=== PATIENT | female | born 1955 | race Caucasian/White ===

== ENCOUNTER 2016-10-19 09:30 | Emergency (ER) | payer BC ==
[~2016-10-19] VITALS: Ht 170.2 cm; Wt 156.9 kg
[~2016-10-19 09:30] MED LIST: ACCUPRIL40 MG PO; ANTACID GELATI1 EACH PO; B-121000 MC2 PO; BENADRYL25 MG PO; BLOOD GLUCOSE1 EACH MC; BYSTOLIC10 MG PO; BYSTOLIC20 MG PO; CALCIUM + D3 E1 EACH PO; CARDIZEM CD180 MG PO; CARDIZEM CD240 MG PO; CATAPRES0.1 MG PO; CHLORTHALIDONE25 MG PO; CINNAMON500 MG PO; CLINDAMYCIN HC300 MG PO; CLONIDINE HCL0.1 MG PO; CYCLOBENZAPRINE10 MG PO; DILAUDID2 MG PO; DILTIAZEM ER180 MG PO; DILTIAZEM ER360 MG PO; DOCUSATE SODIU100 MG PO; EFFER-K 10 MEQ10 MEQ PO; HUMALOG100 UNIT/1 SUB-Q; HUMALOG100 UNITS/; HYDROMORPHONE HC4 MG PO; IPRATROPIU0.2 MG/1 M INH; KEFLEX500 MG PO; KLOR-CON 1010 MEQ PO; LANTUS SOL100 UNIT/1 SUB-Q; LANTUS100 UNIT/1; LANTUS100 UNITS/ SUB-Q; LIPITOR20 MG PO; LISINOPRIL10 MG PO; MAG-OXIDE400 MG PO; MAGNESIUM OXID400 MG PO; MULTIVITAMINS1 EAC7 PO; MULTIVITAMINS1 EAC8 PO; NITROFURANTOIN100 M1 PO; NORVASC5 MG PO; OS-CAL 500+D C1 EAC1 PO; PERCOCET 10-321 EACH PO; POTASSIUM CHLO10 ME1 PO; POTASSIUM CHLO10 ME2 PO; POTASSIUM CHLO10 MEQ PO; PROMETHAZINE HC25 M1 PO; REGLAN10 MG PO; SALINE NASAL SP45 ML NAS; SILVADENE20 GM TP; SPIRONOLACTONE25 MG PO; STOOL SOFTENER1 EAC2 PO; STOOL SOFTENER100 MG PO; STOOL SOFTENER250 MG PO; THALITONE15 MG PO; TORSEMIDE10 MG PO; TORSEMIDE20 MG PO; TRAMADOL HCL50 MG PO; VITAMIN C1000 M1 PO; VITAMIN C250 MG PO; VITAMIN C500 M1 PO; VITAMIN C500 M4 PO; VITAMIN D1000 UNI1 PO; VITAMIN D2000 UNI1 PO; VITAMIN D5000 UNIT PO; XARELTO10 MG PO; XARELTO20 MG PO; XOPENEX CO1.25 MG/0. INH; ZYRTEC10 M3 PO; ZYRTEC10 MG PO
[2016-10-19] MEDS ORDERED: DIGOX125 MCG PO (09:43)
[2016-10-19] MEDS ORDERED: PERCOCET 5-3251 EACH PO (13:43)
[2016-10-19] MEDS ORDERED: ZOFRAN ODT4 MG PO (13:43)
--- NOTE | 2016-10-19 21:33 | EKG ---
[facility] [address] [facility] [place] [address] Signed Atrial fibrillation with premature ventricular or aberrantly conducted complexes Left anterior fascicular block Nonspecific ST and T wave abnormality Abnormal ECG No previous ECGs available Confirmed by ALPHONSE DUARTE MD ([id number]) on 10/19/2016 9:33:18 PM Electronically Signed By: ALPHONSE DUARTE MD 10/19/16 2133 PATIENT NAME: GISELRANDALL ALYSSA Electrocardiogram DATE OF : 55 PHYSICIAN: ALPHONSE DUARTE MD REPORT #: [id number] REPORT IS CONFIDENTIAL AND NOT TO BE RELEASED WITHOUT AUTHORIZATION
[2017-01-28] MEDS ORDERED: BYSTOLIC20 MG PO (22:45)
[2017-01-28] MEDS ORDERED: LEVEMIR FL100 UNIT/2 SUB-Q (22:46)
[2017-01-29] MEDS ORDERED: PERCOCET 5-3251 EACH PO (00:08)
[2017-01-29] MEDS ORDERED: LEVAQUIN500 MG PO (00:08)
== END 2016-10-19 13:58 | disposition home or self-care (01) ==
LOC: ED 09:30
DX: R07.2 Precordial pain (principal); I11.0 Hypertensive heart disease with heart failure; I50.9 Heart failure, unspecified; E11.9 Type 2 diabetes mellitus without complications; Z79.4 Long term (current) use of insulin; I48.91 Unspecified atrial fibrillation; Z79.01 Long term (current) use of anticoagulants; Z89.422 Acquired absence of other left toe(s); Z90.710 Acquired absence of both cervix and uterus; Z95.0 Presence of cardiac pacemaker; Z88.1 Allergy status to other antibiotic agents; Z90.49 Acquired absence of other specified parts of digestive tract; Z88.8 Allergy status to other drugs, medicaments and biological substances; Z88.2 Allergy status to sulfonamides; Z88.5 Allergy status to narcotic agent; Z79.899 Other long term (current) drug therapy
CPT/HCPCS: 71010; 71260; 80053; 80162; 84484; 85025; 93005; 93010; 96374; 96375; 96376; 99284; J2270; J2405; J2550; Q9967

== ENCOUNTER 2016-12-26 06:57 | Day surgery (SDC) | payer BC ==
[~2016-12-26] VITALS: Ht 170.2 cm; Wt 151.5 kg
[~2016-12-26 06:57] MED LIST changes: +DIGOX125 MCG PO; +PERCOCET 5-3251 EACH PO; +ZOFRAN ODT4 MG PO
[2017-01-28] MEDS ORDERED: BYSTOLIC20 MG PO (22:45)
[2017-01-28] MEDS ORDERED: LEVEMIR FL100 UNIT/2 SUB-Q (22:46)
[2017-01-29] MEDS ORDERED: LEVAQUIN500 MG PO (00:08)
[2017-01-29] MEDS ORDERED: PERCOCET 5-3251 EACH PO (00:08)
== END 2016-12-26 08:46 | disposition home or self-care (01) ==
LOC: DS 06:57 → OPS 06:57 → DS 08:00 → OPS 08:00
PROC: 08RK3JZ Replacement of Left Lens with Synthetic Substitute, Percutaneous Approach (ICD-10-PCS; principal; 2016-12-26)
DX: H25.812 Combined forms of age-related cataract, left eye (principal); I11.0 Hypertensive heart disease with heart failure; I50.9 Heart failure, unspecified; G47.30 Sleep apnea, unspecified; F17.210 Nicotine dependence, cigarettes, uncomplicated; I48.91 Unspecified atrial fibrillation; Z95.0 Presence of cardiac pacemaker; E11.9 Type 2 diabetes mellitus without complications; Z90.49 Acquired absence of other specified parts of digestive tract; Z90.710 Acquired absence of both cervix and uterus; Z98.890 Other specified postprocedural states; Z88.2 Allergy status to sulfonamides; Z88.8 Allergy status to other drugs, medicaments and biological substances; Z79.899 Other long term (current) drug therapy
CPT/HCPCS: 00140; 36415; 80053; J2250

== ENCOUNTER 2017-01-29 13:33 | Emergency (ER) | payer BC ==
[~2017-01-29] VITALS: Ht 170.2 cm; Wt 151.5 kg
[~2017-01-29 13:33] MED LIST changes: +LEVAQUIN500 MG PO; +LEVEMIR FL100 UNIT/2 SUB-Q
[2017-01-29] MEDS ORDERED: ONDANSETRON ODT8 MG PO (16:13)
== END 2017-01-29 16:40 | disposition home or self-care (01) ==
LOC: ED 13:33
DX: J40 Bronchitis, not specified as acute or chronic (principal); E86.0 Dehydration; I11.0 Hypertensive heart disease with heart failure; I50.9 Heart failure, unspecified; I48.91 Unspecified atrial fibrillation; Z90.710 Acquired absence of both cervix and uterus; Z95.0 Presence of cardiac pacemaker; Z88.8 Allergy status to other drugs, medicaments and biological substances; Z88.7 Allergy status to serum and vaccine; Z88.1 Allergy status to other antibiotic agents; Z91.048 Other nonmedicinal substance allergy status; Z79.899 Other long term (current) drug therapy; Z79.01 Long term (current) use of anticoagulants; Z79.4 Long term (current) use of insulin
CPT/HCPCS: 71010; 80048; 81001; 83605; 85025; 87077; 87088; 87186; 96361; 96365; 96375; 96376; 99283; J1170; J1956; J2270; J2405; J7030

== ENCOUNTER 2017-02-16 15:38 | Emergency (ER) | payer BC ==
[~2017-02-16] VITALS: Ht 170.2 cm; Wt 151.5 kg
[~2017-02-16 15:38] MED LIST changes: +ONDANSETRON ODT8 MG PO
[2017-02-16] MEDS ORDERED: MULTIVITAMINS1 EAC7 PO (15:57)
[2017-02-16] MEDS ORDERED: PERCOCET 5-3251 EACH PO (17:28)
[2017-02-16] MEDS ORDERED: ZOFRAN ODT4 MG PO (17:28)
--- NOTE | 2017-02-18 00:36 | EKG ---
[facility] [address] [facility] [place] [address] Signed Atrial fibrillation with occasional ventricular-paced complexes Right superior axis deviation Pulmonary disease pattern ST \T\ T wave abnormality, consider anterolateral ischemia Abnormal ECG When compared with ECG of 28-JAN-2017 22:22, Electronic ventricular pacemaker has replaced Atrial fibrillation Vent. rate has decreased BY 47 BPM Confirmed by ALPHONSE DUARTE MD ([id number]) on 02/18/2017 12:36:33 AM Electronically Signed By: ALPHONSE DUARTE MD 02/18/17 0036 PATIENT NAME: RANDALL BATRES Electrocardiogram DATE OF : 55 PHYSICIAN: ALPHONSE DUARTE MD REPORT #: [id number] REPORT IS CONFIDENTIAL AND NOT TO BE RELEASED WITHOUT AUTHORIZATION
== END 2017-02-16 18:00 | disposition home or self-care (01) ==
LOC: ED 15:38
DX: K85.90 Acute pancreatitis without necrosis or infection, unspecified (principal); E11.9 Type 2 diabetes mellitus without complications; I11.0 Hypertensive heart disease with heart failure; I50.9 Heart failure, unspecified; I48.91 Unspecified atrial fibrillation; F17.200 Nicotine dependence, unspecified, uncomplicated; Z87.01 Personal history of pneumonia (recurrent); Z90.710 Acquired absence of both cervix and uterus; Z95.0 Presence of cardiac pacemaker; Z90.49 Acquired absence of other specified parts of digestive tract; Z88.8 Allergy status to other drugs, medicaments and biological substances; Z88.1 Allergy status to other antibiotic agents; Z88.2 Allergy status to sulfonamides; Z88.5 Allergy status to narcotic agent; Z91.048 Other nonmedicinal substance allergy status; Z79.899 Other long term (current) drug therapy; Z79.4 Long term (current) use of insulin; Z79.2 Long term (current) use of antibiotics
CPT/HCPCS: 71020; 80053; 83690; 83880; 84484; 85025; 93005; 93010; 96374; 96375; 99284; J1170; J2405; J3010

== ENCOUNTER 2018-03-21 01:53 | Emergency (ER) | payer BC ==
[~2018-03-21] VITALS: Ht 170.2 cm; Wt 137.4 kg
--- NOTE | 2018-03-21 22:18 | EKG ---
[facility] [address] [facility] [place] [address] Signed Atrial fibrillation with rapid ventricular response Left anterior fascicular block Minimal voltage criteria for LVH, may be normal variant Marked ST abnormality, possible lateral subendocardial injury Abnormal ECG When compared with ECG of 16-FEB-2017 15:43, Atrial fibrillation has replaced Electronic ventricular pacemaker Vent. rate has increased BY 75 BPM Confirmed by VARSHA LOPEZ DO ([id number]) on 03/21/2018 10:17:57 PM Electronically Signed By: VARSHA LOPEZ DO 03/21/18 2218 PATIENT NAME: RANDALL BATRES Electrocardiogram DATE OF : 55 PHYSICIAN: VARSHA LOPEZ DO REPORT #: [id number] REPORT IS CONFIDENTIAL AND NOT TO BE RELEASED WITHOUT AUTHORIZATION
== END 2018-03-21 06:32 | disposition home or self-care (01) ==
LOC: ED 01:53
DX: I48.91 Unspecified atrial fibrillation (principal); F41.9 Anxiety disorder, unspecified; E11.9 Type 2 diabetes mellitus without complications; I11.0 Hypertensive heart disease with heart failure; I50.9 Heart failure, unspecified; Z87.01 Personal history of pneumonia (recurrent); F17.200 Nicotine dependence, unspecified, uncomplicated; Z95.0 Presence of cardiac pacemaker; Z89.422 Acquired absence of other left toe(s); Z90.710 Acquired absence of both cervix and uterus; Z90.49 Acquired absence of other specified parts of digestive tract; Z88.5 Allergy status to narcotic agent; Z88.1 Allergy status to other antibiotic agents; Z88.2 Allergy status to sulfonamides; Z88.8 Allergy status to other drugs, medicaments and biological substances; Z91.09 Other allergy status, other than to drugs and biological substances; Z91.048 Other nonmedicinal substance allergy status; Z79.899 Other long term (current) drug therapy; Z79.4 Long term (current) use of insulin
CPT/HCPCS: 71045; 80053; 80162; 84484; 85025; 85610; 85730; 93005; 93010; 96374; 96375; 96376; 99285-25; J2060; J2270; J2405

== ENCOUNTER 2019-01-10 22:02 | Emergency (ER) | payer BC ==
[~2019-01-10] VITALS: Ht 170.2 cm; Wt 137.4 kg
--- OUTSIDE RECORDS SUMMARY | ~2019-01-10 | XMS | Encounter Summary ---
Demographics + + + | Address | [address] | | | [place] [address] | + + + | Home Phone | | + + + | Preferred Language | Unknown | + + + | Marital Status | | + + + | Yazidi Affiliation | 1013 | + + + | Race | Unknown | + + + | Ethnic Group | Unknown | + + + Author + + + | Author | [facility] | | | and [place] | + + + | Organization | [facility] | | | and [place] | + + + | Address | Unknown | + + + | Phone | Unavailable | + + + Support + + +---------+ + | Name | Relationship | Address | Phone | + + +---------+ + | Juanjose Singletary | ECON | Unknown | | | "[place]" | | | | + + +---------+ + | Aarti Arita | ECON | Unknown | | + + +---------+ + Care Team Providers + +------+ + | Care Canvas Cutter Machine Name | Role | Phone | + +------+ + | Kris Driver | PCP | | | MD | | | + +------+ + Encounter Details +--------+ + + + + | Date | Type | Department | Care Team | Description | +--------+ + + + + | 10/16/ | Orders Only | [facility] | Katie Bee | | | 2019 | | CARDIOLOGY MAXIMO | [address] [address] | | | | | [address] | [address] | | | | | [address] | [place] [address] | | | | | [place] | [phone] | | | | | [address] | | | | | | [phone] | | | +--------+ + + + + Social History + +-------+ +--------+------+ | Tobacco Use | Types | Packs/Day | Years | Date | | | | | Used | | + +-------+ +--------+------+ | Current Every Day | | 0.5 | | | | Smoker | | | | | + +-------+ +--------+------+ + + | Comments: set quit date for Novemver | + + + + + | Sex Assigned at | Date Recorded | | | | + + + | Not on file | | + + + + + + + | Job Start Date | Occupation | Industry | + + + + | Not on file | Not on file | Not on file | + + + + + + + + | Travel History | Travel Start | Travel End | + + + + + + | No recent travel history available. | + + documented as of this encounter Plan of Treatment +--------+ + + + + | Date | Type | Specialty | Care Team | Description | +--------+ + + + + | 01/12/ | Office | Cardiology | RohitKatie | | | 2018 | Visit | | [place] | | | | | | [address] | | | | | | [place] [address] | | | | | | [phone] | | | | | | | | +--------+ + + + + | 01/28/ | Office | Cardiology | Dale Lopez, | | | 2018 | Visit | | MD [address] | | | | | | [place] | | | | | | [address] | | | | | | | | +--------+ + + + + | 03/11/ | Procedure | Cardiology | | | | 2019 | visit | | | | +--------+ + + + + documented as of this encounter Visit Diagnoses Not on filedocumented in this encounter
--- OUTSIDE RECORDS SUMMARY | ~2019-01-10 | XMS | Clinical Summary ---
Demographics + + + | Address | [address] | | | [place] [address] | + + + | Home Phone | | + + + | Preferred Language | Unknown | + + + | Marital Status | | + + + | Methodist Affiliation | 1013 | + + + | Race | Unknown | + + + | Ethnic Group | Unknown | + + + Author + + + | Author | [email or web address] (Historical as of | | | 11-01-18) | + + + | Organization | [facility] (Historical as of | | | 11-01-18) | + + + | Address | Unknown | + + + | Phone | Unavailable | + + + Support + + +---------+ + | Name | Relationship | Address | Phone | + + +---------+ + | Juanjose Batres | ECON | Unknown | | | "[place]" | | | | + + +---------+ + | Aarti Arita | ECON | Unknown | | + + +---------+ + | Varsha Molina | ECON | Unknown | | + + +---------+ + Care Team Providers + +------+ + | Care Caustics Loader Name | Role | Phone | + +------+ + | Kris Driver MD | PP | | + +------+ + Allergies + + + + + + | Active Allergy | Reactions | Severity | Noted | Comments | | | | | Date | | + + + + + + | Adhesive Tape | Other (See Comments) | Medium | 01/24/20 | Blisters | | | | | 16 | | + + + + + + | Wmgfchcz-Awmjsnmex-U | Other (See Comments) | Medium | 07/10/19 | Unknown | | c | | | 12 | | + + + + + + | Sulfamethoxazole-Tri | Rash | Medium | 07/10/19 | | | methoprim | | | 12 | | + + + + + + | Metoprolol Succinate | Other (See Comments) | Medium | 07/10/19 | Fluid retention | | | | | 12 | | + + + + + + | Hydrocodone-Acetamin | Rash | Medium | 07/10/19 | | | ophen | | | 12 | | + + + + + + Current Medications + + +--------+---------+------+------+-------+ | Prescription | Sig. | Disp. | Refills | Star | End | Statu | | | | | | t | Date | s | | | | | | Date | | | + + +--------+---------+------+------+-------+ | docusate sodium | Take 100 mg by mouth | | | | | Activ | | (COLACE) 100 MG | as needed. | | | | | e | | capsule | | | | | | | + + +--------+---------+------+------+-------+ | cetirizine | Take 10 mg by mouth | | | | | Activ | | (ZYRTEC) 10 MG | daily. | | | | | e | | chewable tablet | | | | | | | + + +--------+---------+------+------+-------+ | atorvastatin | Take 20 mg by mouth | | | | | Activ | | (LIPITOR) 20 MG | daily. | | | | | e | | tablet | | | | | | | + + +--------+---------+------+------+-------+ | Multiple | Take by mouth 2 | | | | | Activ | | Minerals-Vitamins | (two) times daily. | | | | | e | | (QSPCEXR-QRHXEHDGI-U | | | | | | | | INC-D3 PO) | | | | | | | + + +--------+---------+------+------+-------+ | Cholecalciferol | Take 1,000 Units by | | | | | Activ | | 1000 UNITS capsule | mouth 2 (two) times | | | | | e | | | daily. | | | | | | + + +--------+---------+------+------+-------+ | diltiazem (TIAZAC) | Take 360 mg by mouth | | | | | Activ | | 360 MG 24 hr | daily. | | | | | e | | capsule | | | | | | | + + +--------+---------+------+------+-------+ | MULTIPLE VITAMIN | Take by mouth | | | | | Activ | | PO | daily. | | | | | e | + + +--------+---------+------+------+-------+ | cyanocobalamin | Take 1,000 mcg by | | | | | Activ | | (VITAMIN B-12) 1000 | mouth 2 (two) times | | | | | e | | MCG tablet | daily. | | | | | | + + +--------+---------+------+------+-------+ | magnesium oxide | Take 400 mg by mouth | | | | | Activ | | (MAG-OX) 400 MG | daily. | | | | | e | | tablet | | | | | | | + + +--------+---------+------+------+-------+ | rivaroxaban | Take 20 mg by mouth | | | | | Activ | | (XARELTO) 20 MG | daily with dinner. | | | | | e | | tablet | | | | | | | + + +--------+---------+------+------+-------+ | Ascorbic Acid 500 | Take 500 mg by mouth | | | | | Activ | | MG CAPS | daily. | | | | | e | + + +--------+---------+------+------+-------+ | insulin lispro, | Inject 10 Units into | | | | | Activ | | human, (HUMALOG) 100 | the skin 3 (three) | | | | | e | | UNIT/ML injection | times daily before | | | | | | | | meals. TID sliding | | | | | | | | scale | | | | | | + + +--------+---------+------+------+-------+ | torsemide | Take 2 tablets by | 120 | 1 | 08/1 | | Activ | | (DEMADEX) 20 MG | mouth daily. | tablet | | 1/20 | | e | | tablet | | | | 16 | | | + + +--------+---------+------+------+-------+ | potassium chloride | Take 20 mEq by mouth | | | | | Activ | | (K-DUR) 10 MEQ | 2 (two) times daily | | | | | e | | tablet | with meals. | | | | | | + + +--------+---------+------+------+-------+ | Insulin Detemir | Inject 95 Units into | | | | | Activ | | (LEVEMIR FLEXTOUCH | the skin daily. | | | | | e | | SC) | | | | | | | + + +--------+---------+------+------+-------+ | digoxin (LANOXIN) | Take 1 tablet by | 90 | 1 | 02/2 | 02/2 | Activ | | 0.125 MG tablet | mouth daily. | tablet | | 10/04 | 10/04 | e | | | | | | 19 | 20 | | + + +--------+---------+------+------+-------+ | carvedilol (COREG | Take 20 mg by mouth | | | | | Activ | | CR) 20 MG 24 hr | 2 (two) times daily. | | | | | e | | capsule | | | | | | | + + +--------+---------+------+------+-------+ | lisinopril | Take 1 tablet by | 30 | 0 | 03/0 | 03/0 | Activ | | (ZESTRIL) 40 MG | mouth daily. | tablet | | /20 | 20 | e | | tablet | | | | 19 | 20 | | + + +--------+---------+------+------+-------+ | aspirin 81 MG EC | Take 1 tablet by | 90 | 3 | 09/15 | 09/15 | Activ | | tablet | mouth daily. | tablet | | /20 | 10/04 | e | | | | | | 19 | 20 | | + + +--------+---------+------+------+-------+ | clopidogrel | Take 1 tablet by | 90 | 3 | 09/15 | 09/15 | Activ | | (PLAVIX) 75 MG | mouth daily. | tablet | | / | 10/04 | e | | tablet | | | | 19 | 20 | | + + +--------+---------+------+------+-------+ | hydrALAZINE | Take 1 tablet by | 30 | 11 | 08/0 | 09/17 | Activ | | (APRESOLINE) 25 MG | mouth 2 (two) times | tablet | | 04/06 | 04/06 | e | | tablet | daily. | | | 19 | 20 | | + + +--------+---------+------+------+-------+ Active Problems + + + | Problem | Noted Date | + + + | Pacemaker | 10/16/2018 | + + + | Screening for deficiency anemia | 10/16/2018 | + + + | Chronic anticoagulation | 10/16/2018 | + + + | Encounter for monitoring digoxin therapy | 10/16/2018 | + + + | S/P primary angioplasty with coronary stent | 10/06/2018 | + + + + + | Overview: angiogram/PCI: 10/02/2018: ([facility]) : Three vessel | | coronary artery disease with severe disease to the proximal LAD, | | and stable disease to the RCA and left circumflex. Angioplasty | | of proximal LAD with KARTIK Synergy 2.5 x 32 mm. Angioplasty for the | | mid RCA with KARTIK Resolute Wiliam 2.0. | + + + + + | Coronary artery disease of [place] artery of [place] heart with | 10/06/2018 | | stable angina pectoris (HCC) | | + + + | Obstructive sleep apnea | 08/28/2017 | + + + | CHF (congestive heart failure), NYHA class III | 09/22/2015 | + + + + + | Last Assessment & Plan: Non-ischemic CM, CHF, LVEDd 65mm, | | LVEF 45-50%. 60yo WF, with history of nonischemic | | cardiomyopathy (low-grade CAD), congestive heart failure, chronic | | atrial fibrillation. She is having difficulty with edema and | | shortness of breath, was quite aggressive with the diuretics, | | this lowered her renal function. We've had to back off on the | | torsemide, renal function is improved. Although her weight is | | going up, she has not had any significant increase in her edema. | | Lately, she's had episodes of lightheadedness, near-syncope. | | The 14-day cardiac event monitor reveals both tachycardia and | | bradycardia events, pauses up to 6.4 seconds in duration, and | | episodes of paroxysmal atrial fibrillation with heart rates up to | | 148 bpm, symptoms correlating with the tachycardic events. So | | far, she's not had a complete syncopal episode. She probably | | needs more aggressive medical therapy for her atrial | | fibrillation, however with her pauses, she will need a pacemaker. | | Pacemaker implantation procedure described to the patient, | | risks and benefits explained. We'll have her see Dr. Lopez in | | consultation for pacemaker implantation.Hx CABG: no Hx | | PCI/stent: noHx Pacemaker/ICD: noLast Cath, 07/10/2011: left main | | OK, 30% mid-LAD, LCx luminal irreg, 40% prox-OM1, 75-80% | | ydf-uac-fhlcvcus RCA. LVEF 55%.Last Echo, 08[facility]/2015 ([facility] TDS, A fib, LVEDd 65mm, LVEF 45-50%, severe LAE, | | moderate LILI, trace MR, trace TR, mild PI, Acecnding Aorta 40mm, | | est systolic PAP 39-44mmHg.Last Stress Test, 05/15/2011 ([facility]): | | 2-day Lexiscan MPI, mild gen-apical ischemia, LVEF 56%.14-day | | Cardiac Event Monitor, 12/06/2015: sinus rhythm, 46-148, 21% A fib | | burden, 50-148bpm, 11 pauses, longest pause 6.4sec, symptoms of | | dizziness correlate with A fib at high heart rates.ECG, 08/17/2015 | | ([facility]): A fib, 115bpm, LAFB, PRWP, non-spec ST-T | | changes.ECG, 09/15/2015 (Dr Smiley): sinus rhythm, Atrial | | bigeminy, 75bpm, LAD, PRWP, non-spec ST-T changes. | + + + + + | Persistent atrial fibrillation (HCC) | 09/22/2015 | + + + + + | Overview: Echo in August 2015: Last Assessment & Plan: P A | | fib, CHADS2 Score 3 (CHF, HTN, DM). Anti-coagulated with | | Xarelto. Denies any new visual disturbances, dysarthria, | | dysphasia, lateralizing signs or symptoms. No significant | | bleeding or bruising.14-day Cardiac Event Monitor, 12/06/2015: | | sinus rhythm, 46-148, 21% A fib burden, 50-148bpm, 11 pauses, | | longest pause 6.4sec, symptoms of dizziness correlate with A fib | | at high heart rates. | + + + + + | HTN (hypertension) | 09/22/2015 | + + + + + | Last Assessment & Plan: Hypertension, controlled, continue | | current meds at current doses (diltiazem, lisinopril, nebivolol, | | torsemide).Lab, 12/03/2015: K: 3.7, BUN/Cr: 13/0.9 (GFR 67), glu: | | 105 | + + + + + | Mixed dyslipidemia | 09/22/2015 | + + + + + | Last Assessment & Plan: Hyperlipidemia, continue current meds | | at current doses (atorvastatin). | + + + + + | Type 2 diabetes mellitus without complication, with long-term | 09/22/2015 | | current use of insulin (HCC) | | + + + + + | Last Assessment & Plan: DM2, managed by PCP. | + + Encounters +--------+ + + + + | Date | Type | Specialty | Care Team | Description | +--------+ + + + + | 10/20/ | Documentati | | Jeannine Reed MA | Other (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 | | | | | | diastolic congestive | | | | | | heart failure, NYHA | | | | | | class 3 ([facility]); | | | | | | Pacemaker; Mixed | | | | | | dyslipidemia; | | | | | | Essential | | | | | | hypertension; | | | | | | Persistent atrial | | | | | | fibrillation ([facility]); | | | | | | S/P primary | | | | | | angioplasty with | | | | | | coronary stent; | | | | | | Obstructive sleep | | | | | | apnea | +--------+ + + + + | 10/14/ | Documentati | | Jeannine Reed, REX | Elisabeth ([facility] | | 2018 | on Only | | | Cardiac Rehab | | | | | | Initial Consult | | | | | | 10/13/18) | +--------+ + + + + from Last 3 Months Family History + + +------+ + | Medical History | Relation | Name | Comments | + + +------+ + | Hypertension | Father | | | + + +------+ + | Diabetes type II | Mother | | | + + +------+ + | Heart disease | Mother | | | + + +------+ + | High cholesterol | Mother | | | + + +------+ + | Hypertension | Mother | | | + + +------+ + | Stroke | Mother | | | + + +------+ + + +------+ + + | Relation | Name | Status | Comments | + +------+ + + | Father | | | lung cancer,HTN | | | | (Age | | | | | 76) | | + +------+ + + | Mother | | | TIA,triple bypass, HTN, Hyperlipidemia | + +------+ + + Social History + + + +--------+ + | Tobacco Use | Types | Packs/Day | Years | Date | | | | | Used | | + + + +--------+ + | Current Every Day | Cigarettes | 0.5 | 36 | Started: 03/18/1971 | | Smoker | | | | | + + + +--------+ + + +---+---+---+ | Smokeless Tobacco: | | | | | Never Used | | | | + +---+---+---+ + + | Tobacco Cessation: Ready to Quit: No; Counseling Given: Yes | | Comments: set quit date for Novemver | + + + + +---------+ + | Alcohol Use | Drinks/We | oz/Week | Comments | | | ek | | | + + +---------+ + | No | 0 | 0.0 | | | | Standard | | | | | drinks or | | | | | | | | | | equivalen | | | | | t | | | + + +---------+ + + + + | Sex Assigned at | Date Recorded | | | | + + + | Not on file | | + + + Last Filed Vital Signs + + + + | Vital Sign | Reading | Time Taken | + + + + | Blood Pressure | 148/72 | 10/16/2018 10:01 AM PDT | + + + + | Pulse | 67 | 10/16/2018 10:01 AM PDT | + + + + | Temperature | 36.6 C (97.9 F) | 10/02/2018 5:50 PM PDT | + + + + | Respiratory Rate | 18 | 10/16/2018 10:01 AM PDT | + + + + | Oxygen Saturation | 97% | 10/16/2018 10:01 AM PDT | + + + + | Inhaled Oxygen | - | - | | Concentration | | | + + + + | Weight | 142.5 kg (314 lb 3.2 | 10/16/2018 10:01 AM PDT | | | oz) | | + + + + | Height | 171.5 cm (5' 7.5") | 10/16/2018 10:01 AM PDT | + + + + | Body Mass Index | 48.48 | 10/16/2018 10:01 AM PDT | + + + + Plan of Treatment +--------+ + + + + | Date | Type | Specialty | Care Team | Description | +--------+ + + + + | 01/28/ | Office | | Dale Lopez, | | | 2018 | Visit | | MD Colby Knapp | | | | | | Dr [address], | | | | | | [place] [phone] | | | | | | [phone] | | | | | | | | +--------+ + + + + | 03/11/ | Documentati | | | | | 2018 | on Only | | | | +--------+ + + + + + + + + + | Health Maintenance | Due Date | Last Done | Comments | + + + + + | Diabetic Eye Exam | | | | | | 5 | | | + + + + + | Diabetic Foot Exam | | | | | | 5 | | | + + + + + | Hemoglobin A1c | | | | | | 5 | | | + + + + + | Microalbumin | | | | | Screening | 5 | | | + + + + + | Vaccine: | | | | | Dtap/Tdap/Td (1 - | 4 | | | | Tdap) | | | | + + + + + | Vaccine: | | | | | Pneumococcal 19-64 | 4 | | | | (PPSV23 only) Medium | | | | | Risk (1 of 1 - | | | | | PPSV23) | | | | + + + + + | Cervical Cancer | | | | | Screening (Pap) | 5 | | | + + + + + | Breast Cancer | | | | | Screening | 5 | | | | (Mammogram) | | | | + + + + + | Colon Cancer | | | | | Screening | 5 | | | | (Colonoscopy) | | | | + + + + + | Vaccine: Zoster (1 | | | | | of 2) | 5 | | | + + + + + | Vaccine: Influenza | | | | | (#1) | 9 | | | + + + + + Implants + +--------+--------+ +--------+--------+--------+ | Implanted | Type | Area | Manufacture | Device | Expira | Model | | | | | r | | tion | / | | | | | | Identi | Date | Serial | | | | | | fier | | / Lot | + +--------+--------+ +--------+--------+--------+ | Capsurefix | Cardia | Heart | | | | [id number] | | Novus-01/13/2016Implanted: | c | | | | | 8CM | | 01/13/2016 by John, | Rhythm | | | | | /[id number] | | MD [place] (Quantity not on | | | | | | [id number] | | file) | Manage | | | | | / | | | ment | | | | | | + +--------+--------+ +--------+--------+--------+ | Capsurefix | Cardia | Heart | | | | [id number] | | Novus-01/13/2016Implanted: | c | | | | | 2CM | | 01/13/2016 by John, | Rhythm | | | | | /[id number] | | MD Dale (Quantity not on | | | | | | [id number] | | file) | Manage | | | | | / | | | ment | | | | | | + +--------+--------+ +--------+--------+--------+ | Advisa Dr Mri | Pacema | Left: | | | | [id number] | | Surescan-01/13/2016Implanted: | ker | Chest | | | | | | 01/13/2016 by John, | | Wall | | | | /[id number] | | MD Dale (Quantity not on | | | | | | [id number] | | file) | | | | | | / | + +--------+--------+ +--------+--------+--------+ | Synergy-10/02/2018Implanted: | Stent | Shetty | [place] | | 06/11/ | / | | Qty: 1 on 10/02/2018 by | | ry | SCIENTIFIC | | 2020 | /[id number] | | Lane Zarco MD | | | LAURA - BSCI | | | 591 | + +--------+--------+ +--------+--------+--------+ | Resolute | Stent | Shetty | MEDTRONIC - | | 12/29/ | / | | Oynx-10/02/2018Implanted: Qty: | | ry | MEDT | | 2019 | /[id number] | | 1 on 10/02/2018 by Haroldo, | | | | | | [id number] | | MD [address] | | | | | | | + +--------+--------+ +--------+--------+--------+ Procedures + +--------+ + + + | Procedure Name | Priori | Date/Time | Associated Diagnosis | Comments | | | ty | | | | + +--------+ + + + | EKG STANDARD 12 LEAD | Routin | 10/16/2018 | Coronary artery | Results for this | | | e | 10:07 AM | disease [place] | procedure are in the | | | | PDT | artery of [place] | results section. | | | | | heart with stable | | | | | | angina pectoris | | | | | | ([facility]) Chronic | | | | | | combined systolic | | | | | | and diastolic | | | | | | congestive heart | | | | | | failure, NYHA class | | | | | | 3 ([facility]) Pacemaker | | | | | | Mixed dyslipidemia | | | | | | Essential | | | | | | hypertension | | | | | | Persistent atrial | | | | | | fibrillation ([facility]) | | | | | | S/P primary | | | | | | angioplasty with | | | | | | coronary stent | | | | | | Obstructive sleep | | | | | | apnea | | + +--------+ + + + from Last 3 Months Results EKG STANDARD 12 LEAD (10/16/2018 10:07 AM) + + + + + | Component | Value | Ref Range | Performed At | + + + + + | Ventricular Rate | 67 | BPM | [facility] | + + + + + | Atrial Rate | 77 | BPM | [facility] | + + + + + | QRS Duration | 98 | ms | [facility] | + + + + + | Q-T Interval | 390 | ms | [facility] | + + + + + | QTC Calculation | 412 | ms | [facility] | | ([place]) | | | | + + + + + | Calculated R [place] | -53 | degrees | [facility] | + + + + + | Calculated T [place] | 109 | degrees | [facility] | + + + + + | Diagnosis | Please refer to | | [facility] | | | Providers office visit | | | | | note for Providers | | | | | Interpretation.Confirmed | | | | | by [facility] Read Only, | | | | | [facility] [employer] ([id number]), | | | | | film and video editor Carlos A Zafar | | | | | ([id number]) on 10/16/2018 | | | | | 10:40:46 AM | | | + + + + + + + + + + | Performing | Address | City/State/Zipcode | Phone Number | | Organization | | | | + + + + + | [facility] | [address] | [place] [address] | | + + + + + from Last 3 Months Insurance +---------+--------+ +------+-------+ + | Payer | Benefi | Subscriber | Type | Phone | Address | | | t Plan | ID | | | | | | / | | | | | | | Group | | | | | +---------+--------+ +------+-------+ + | PREMERA | PREMER | [id number] | | | [address] [address] | | | A BLUE | 8 | | | [place], [place] | | | CARD | | | | [phone] | +---------+--------+ +------+-------+ + + +--------+ +--------+ + + | Guarantor Name | Accoun | Relation to | Date | Phone | Billing Address | | | t Type | Patient | of | | | | | | | | | | + +--------+ +--------+ + + | RANDALL BATRES | Person | Self [birth year] Home: | [address] | | [place] | al/Fam | | [phone] [place] | | | dinesh | | | [phone] | [phone] | + +--------+ +--------+ + +
--- OUTSIDE RECORDS SUMMARY | ~2019-01-10 | XMS | Encounter Summary ---
Demographics + + + | Address | [address] | | | [place] [address] | + + + | Home Phone | | + + + | Preferred Language | Unknown | + + + | Marital Status | | + + + | Judaism Affiliation | 1013 | + + + | Race | Unknown | + + + | Ethnic Group | Unknown | + + + Author + + + | Author | [facility] | | | and [place] | + + + | Organization | [facility] | | | and [...] | | + + +---------+ + | aArti Arita | ECON | Unknown | | + + +---------+ + Care Team Providers + +------+ + | Care Coding Manager Name | Role | Phone | + +------+ + | Kris Driver | PCP | | | MD | | | + +------+ + Reason for Visit + + + | Reason | Comments | + + + | Medication Refill | | + + + Encounter Details +--------+--------+ + + + | Date | Type | Department | Care Team | Description | +--------+--------+ + + + | 12/15/ | Refill | [facility] | Dale Lopez, | Medication Refill | | 2019 | | CARDIOLOGY [place] | MD [address] | | | | | [address] | [place], [place] | | | | | [place], [place] | [address] | | | | | [address] | | | | | | [phone] | | | +--------+--------+ + + + Social History + +-------+ +--------+------+ | Tobacco Use | Types | Packs/Day | Years | Date | | | | | Used | | + +-------+ +--------+------+ | Current Every Day | | 0.5 | | | | Smoker | | | | | + +-------+ +--------+------+ + +---+---+---+ | Smokeless Tobacco: | | | | | Never Used | | | | + +---+---+---+ + + | Comments: set quit date for Novemver | + + + + +---------+ + | Alcohol Use | Drinks/We | oz/Week | Comments | | | ek | | | + + +---------+ + | Never | | | | + + +---------+ + + + + + | Alcohol Habits | Answer | Date Recorded | + + + + | How often do you have a drink containing | Never | 11/27/2018 | | alcohol? | | | + + + + | How many drinks containing alcohol do you | Not asked | | | have on a typical day when you are | | | | drinking? | | | + + + + | How often do you have six or more drinks on | Not asked | | | one occasion? | | | + + + + + + + | Sex [...] | 01/12/ | Office | Cardiology | Katie Bee | | | 2019 | Visit | | [address] | | | | | | [address] | | | | | | [place] [address] | | | | | | [phone] | | | | | | | | +--------+ + + + + | 01/28/ | Office | Cardiology | Dale Lopez, | | | 2018 | Visit | | [address] | | | | | | [place] | | | | | | [address] | | | | | | | | +--------+ + + + + | 03/11/ | Procedure | Cardiology | | | | 2018 | visit | | | | +--------+ + + + + documented as of this encounter Visit Diagnoses Not on filedocumented in this encounter
--- OUTSIDE RECORDS SUMMARY | ~2019-01-10 | XMS | Encounter Summary ---
Demographics + + + | Address | [address] | | | [place] [address] | + + + | Home Phone | | + + + | Preferred Language | Unknown | + + + | Marital Status | | + + + | Jain Affiliation | 1013 | + + + | Race | Unknown | + + + | Ethnic Group | Unknown | + + + Author + + + | Author | [facility] | | | and [place] | + + + | Organization | [facility] | | | [...] Team Providers + +------+ + | Care Delivery And Mail Sorter Name | Role | Phone | + +------+ + | Kris Driver | PCP | | | MD | | | + +------+ + Encounter Details +--------+ + + + + | Date | Type | Department | Care Team | Description | +--------+ + + + + | 10/31/ | Orders Only | [facility] | Katie Bee | Mixed | | 2019 | | CARDIOLOGY [place] | [address] | hyperlipidemia; Type | | | | [address] | [address] | 2 diabetes mellitus | | | | [address] | [place] [address] | without | | | | [place], [place] | [phone] | complications (HCC); | | | | [address] | | Presence of | | | | [phone] | | coronary angioplasty | | | | | | implant and graft; | | | | | | Encounter for | | | | | | screening for | | | | | | diseases of the | | | | | | blood and | | | | | | blood-forming organs | | | | | | and certain | | | | | | disorders involving | | | | | | the immune | | | | | | mechanism; | | | | | | Persistent atrial | | | | | | fibrillation (HCC); | | | | | | Encounter for | | | | | | therapeutic drug | | | | | | level monitoring | +--------+ + + + + Social [...] [address] | | | | | | [address] | | | | | | [place] [address] | | | | | | [phone] | | | | | | | | +--------+ + + + + | 01/28/ | Office | Cardiology | Dale Lopez, | | | 2018 | Visit | | MD [address] | | | | | | [place] | | | | | | [address] | | | | | | | | +--------+ + + + + | 03/11/ | Procedure | Cardiology | | | | 2018 | visit | | | | +--------+ + + + + + +--------+ + + | Name | Priori | Associated Diagnoses | Order Schedule | | | ty | | | + +--------+ + + | Lipid Panel | Routin | Mixed | Expected: | | | e | hyperlipidemia | 10/16/2018, Expires: | | | | | 10/17/2019 | + +--------+ + + documented as of this encounter Visit Diagnoses + + | Diagnosis | + + | Mixed hyperlipidemia | + + | Type 2 diabetes mellitus without complications (HCC) Type II or unspecified type | | diabetes mellitus without mention of complication, not stated as uncontrolled | + + | Presence of coronary angioplasty implant and graft Postsurgical percutaneous | | transluminal coronary angioplasty status | + + | Encounter for screening for diseases of the blood and blood-forming organs and certain | | disorders involving the immune mechanism | + + | Persistent atrial fibrillation Atrial fibrillation | + + | Encounter for therapeutic drug level monitoring Encounter for therapeutic drug | | monitoring | + + documented in this encounter
--- OUTSIDE RECORDS SUMMARY | ~2019-01-10 | XMS | Encounter Summary ---
Demographics + + + | Address | [address] | | | [place] [address] | + + + | Home Phone | | + + + | Preferred Language | Unknown | + + + | Marital Status | | + + + | Taoism Affiliation | 1013 | + + + | Race | Unknown | + + + | Ethnic Group | Unknown | + + + Author + + + | Author | [facility] | | | and [place] | + + + | Organization | [facility] | | | and [...] Team Providers + +------+ + | Care Biostatistician Name | Role | Phone | + [...] + + | 12/15/ | Refill | [facility] | Dale Lopez, | Medication Refill | | 2019 | | CARDIOLOGY [place] | MD [address] | | | | | [address] | [place], [place] | | | | | [place], [place] | [address] | | | | | [address] | | | | | | [phone] | | | +--------+--------+ + + + [...] | | | | | [place] [address] | | | | | | [phone] | | | | | | | | +--------+ + + + + | 01/28/ | Office | Cardiology | Dale Lopez, | | | 2018 | Visit | | [address] | | | | | | [place] | | | | | | [address] | | | | | | | | +--------+ + + + + | 03/11/ | Procedure | Cardiology | | | | 2018 | visit | | | | +--------+ + + + + documented as of this encounter Visit Diagnoses Not on filedocumented in this encounter
--- OUTSIDE RECORDS SUMMARY | ~2019-01-10 | XMS | Encounter Summary ---
Demographics + + + | Address | [address] | | | [place] [address] | + + + | Home Phone | | + + + | Preferred Language | Unknown | + + + | Marital Status | | + + + | Evangelical Affiliation | 1013 | + + + | Race | Unknown | + + + | Ethnic Group | Unknown | + + + Author + + + | Author | [facility] | | | and [place] | + + + | Organization | [facility] | | | and [...] Team Providers + +------+ + | Care Parking Supervisor Name | Role | Phone | + +------+ + | Kris Driver | PCP | | | MD | | | + +------+ + Reason for Visit + + + | Reason | Comments | + + + | Advice Only | | + + + Encounter Details +--------+ + + + + | Date | Type | Department | Care Team | Description | +--------+ + + + + | 12/10/ | Telephone | [facility] | Katie Bee | Advice Only | | 2019 | | CARDIOLOGY [place] | [address] | | | | | [address] | [address] | | | | | [place], [place] | [place] [address] | | | | | [address] | [phone] | | | | | [phone] | | | +--------+ + + + [...] Cardiology | Katie Bee | | | 2018 | Visit | | [address] | | | | | | [address] | | | | | | [place] [address] | | | | | | [phone] | | | | | | | | +--------+ + + + + | 01/28/ | Office | Cardiology | Dale Lopez, | | | 2018 | Visit | | MD [address] | | | | | | [place] | | | | | | [address] | | | | | | | | +--------+ + + + + | 03/11/ | Procedure | Cardiology | | | | 2018 | visit | | | | +--------+ + + + + documented as of this encounter Visit Diagnoses Not on filedocumented in this encounter
--- OUTSIDE RECORDS SUMMARY | ~2019-01-10 | XMS | Clinical Summary ---
Demographics + + + | Address | [address] | | | [place] [address] | + + + | Home Phone | | + + + | Preferred Language | Unknown | + + + | Marital Status | | + + + | Hinduism Affiliation | 1013 | + + + | Race | Unknown | + + + | Ethnic Group | Unknown | + + + Author + + + | Author | [facility] | | | and [place] | + + + | Organization | [facility] | | | [...] Team Providers + +------+ + | Care Zoning Technician Name | Role | Phone | + +------+ + | Kris Driver | PCP | | | MD | | | + +------+ + Allergies + + + + + + | Active Allergy | Reactions | Severity | Noted | Comments | | | | | Date | | + + + + + + | Adhesive & Tape | Other (See Comments) | Medium | 01/24/20 | Blisters | | | | | 16 | | + + + + + + | Cywfadjn-Ncawbnvkk-E | Other (See Comments) | Medium | 07/10/19 | Unknown | | c | | | 12 | | + + + + + + | Sulfamethoxazole-Tri | Rash | Medium | 07/10/19 | Rash | | methoprim | | | 12 | | + + + + + + | Metoprolol | Other (See Comments) | Medium | 07/10/19 | Fluid retention | | | | | 12 | | + + + + + + | Hydrocodone-Acetamin | Rash | Medium | 07/10/19 | Rash | | ophen | | | 12 | | + + + + + + Medications + + + +---------+------+------+-------+ | Medication | Sig | Dispensed | Refills | Star | End | Statu | | | | | | t | Date | s | | | | | | Date | | | + + + +---------+------+------+-------+ | clopidogrel | Take 1 tablet by | 90 | 3 | 09/15 | 09/15 | Activ | | (PLAVIX) 75 mg | mouth daily. | tablet | | 11/04 | 10/04 | e | | tablet | | | | 19 | 20 | | + + + +---------+------+------+-------+ | MULTIPLE VITAMIN | Take by mouth | | 0 | 07/0 | | Activ | | PO | daily. | | | 7/20 | | e | | | | | | 16 | | | + + + +---------+------+------+-------+ | Insulin Detemir | Inject 95 Units into | | 0 | 08/0 | | Activ | | (LEVEMIR FLEXTOUCH | the skin daily. | | | 2/20 | | e | | SC) | | | | 17 | | | + + + +---------+------+------+-------+ | dilTIAZem (TIAZAC) | Take 360 mg by mouth | | 0 | 07/0 | | Activ | | 360 MG 24 hr | daily. | | | 7/20 | | e | | capsule | | | | 16 | | | + + + +---------+------+------+-------+ | cyanocobalamin | Take 1,000 mcg by | | 0 | 07/0 | | Activ | | (VITAMIN B-12) 1000 | mouth 2 (two) times | | | 7/20 | | e | | MCG tablet | daily. | | | 16 | | | + + + +---------+------+------+-------+ | rivaroxaban | Take 20 mg by mouth | | 0 | 07/0 | | Activ | | (XARELTO) 20 mg | daily with dinner. | | | 7/20 | | e | | tablet | | | | 16 | | | + + + +---------+------+------+-------+ | insulin lispro | Inject 10 Units into | | 0 | 07/0 | | Activ | | (HUMALOG KWIKPEN) | the skin 3 (three) | | | 7/20 | | e | | 100 units/mL | times daily before | | | 16 | | | | injection (pen) | meals. TID sliding | | | | | | | | scale | | | | | | + + + +---------+------+------+-------+ | torsemide | Take 2 tablets by | 120 | 1 | 08/1 | | Activ | | (DEMADEX) 20 mg | mouth daily. | tablet | | 1/20 | | e | | tablet | | | | 16 | | | + + + +---------+------+------+-------+ | potassium chloride | Take 20 mEq by mouth | | 0 | 09/2 | | Activ | | (KLOR-CON) 10 MEQ | 2 (two) times daily | | | /20 | | e | | ER tablet | with meals. | | | 16 | | | + + + +---------+------+------+-------+ | digoxin (LANOXIN) | Take 1 tablet by | 90 | 1 | 02/2 | 02/2 | Activ | | 125 mcg tablet | mouth daily. | tablet | | /20 | 10/04 | e | | | | | | 19 | 20 | | + + + +---------+------+------+-------+ | lisinopril | Take 1 tablet by | 30 | 0 | 03/0 | 03/0 | Activ | | (PRINIVIL,ZESTRIL) | mouth daily. | tablet | | /20 | 20 | e | | 40 MG tablet | | | | 19 | 20 | | + + + +---------+------+------+-------+ | docusate sodium | Take 100 mg by mouth | | 0 | 04/2 | | Activ | | (COLACE) 100 mg | as needed. | | | 4/20 | | e | | capsule | | | | 12 | | | + + + +---------+------+------+-------+ | cetirizine | Take 10 mg by mouth | | 0 | 04/2 | | Activ | | (ZYRTEC) 10 MG | daily. | | | 4/20 | | e | | chewable tablet | | | | 12 | | | + + + +---------+------+------+-------+ | atorvaSTATin | Take 20 mg by mouth | | 0 | 04/2 | | Activ | | (LIPITOR) 20 mg | daily. | | | 4/20 | | e | | tablet | | | | 12 | | | + + + +---------+------+------+-------+ | Calcium Carbonate | Take 600 mg by mouth | | 0 | | | Activ | | (CALCIUM 600 PO) | Daily. | | | | | e | + + + +---------+------+------+-------+ | ASPIRIN 81 PO | Take 81 mg by mouth | | 0 | | | Activ | | | Daily. | | | | | e | + + + +---------+------+------+-------+ | magnesium, as | Take 250 mg by mouth | | 0 | | | Activ | | oxide, 250 MG tablet | 2 times daily. | | | | | e | + + + +---------+------+------+-------+ | hydrALAZINE | Take 1 tablet by | 30 | 11 | 11/16 | 11/16 | Activ | | (APRESOLINE) 25 mg | mouth 2 times daily. | tablet | | 05/07 | 04/06 | e | | tablet | | | | 19 | 20 | | + + + +---------+------+------+-------+ | carvedilol (COREG) | Take 1 tablet by | 180 | 3 | 11/16 | | Activ | | 25 mg tablet | mouth 2 times daily | tablet | | 05/07 | | e | | | (with breakfast & | | | 19 | | | | | dinner). | | | | | | + + + +---------+------+------+-------+ Active Problems + + + | Problem [...] + + + | Overview: angiogram/PCI: 10/02/2018: ([facility]) : Three vessel | | coronary artery disease with severe disease to the proximal LAD, | | and stable disease to the RCA and left circumflex. Angioplasty | | of proximal LAD with KARTIK Synergy 2.5 x 32 mm. Angioplasty for the | | mid RCA with KARTIK Resolute [place] 2.0. 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 | | + + + | Obstructive sleep apnea | 08/28/2017 | + + + | CHF (congestive heart failure), NYHA class III | 09/22/2015 | + + + | Persistent atrial fibrillation | 09/22/2015 | + + + + + | Overview: | | | | Echo in August 2015: | + + + + + | HTN (hypertension) | 09/22/2015 | + + + | Mixed dyslipidemia | 09/22/2015 | + + + | Type 2 diabetes mellitus without complication, with long-term | 09/22/2015 | | current use of insulin | | + + + Encounters +--------+ + + + + | Date | Type | Specialty | Care Team | Description | +--------+ + + + + | 12/15/ | Refill | Cardiology | Dale Lopez, | Medication Refill | | 2018 | | | MD | | +--------+ + + + + | 12/10/ | Telephone | Cardiology | Katie Bee | Advice Only | | 2019 | | | [address] | | +--------+ + + + + | 12/04/ | Documentati | Cardiology | Katie Bee | | | 2019 | on | | [address] | | +--------+ + + + + | 11/27/ | Office | Cardiology | Katie Bee | Coronary artery | | 2019 | Visit | | [address] | disease of [place] | | | | | | artery of [place] | | | | | | heart with stable | | | | | | angina pectoris | | | | | | ([facility]) (Primary Dx); | | | | | | 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 | | | | | | diastolic congestive | | | | | | heart failure, NYHA | | | | | | class 3 ([facility]); | | | | | | Pacemaker; Chronic | | | | | | atrial fibrillation | | | | | | ([facility]); S/P primary | | | | | | angioplasty with | | | | | | coronary stent; | | | | | | Mixed dyslipidemia; | | | | | | Essential | | | | | | hypertension; | | | | | | Obstructive sleep | | | | | | apnea; Type 2 | | | | | | diabetes mellitus | | | | | | without | | | | | | complication, with | | | | | | long-term current | | | | | | use of insulin | | | | | | (HCC); Chronic | | | | | | anticoagulation; | | | | | | Encounter for | | | | | | monitoring digoxin | | | | | | therapy; Screening | | | | | | for deficiency | | | | | | anemia | +--------+ + + + + | 10/31/ | Orders Only | Cardiology | Katie Bee | Mixed | | 2018 | | | [address] | hyperlipidemia; Type | | | | | | 2 diabetes mellitus | | | | | | without | | | | | | complications (HCC); | | | | | | Presence of | | | | | | coronary angioplasty | | | [...] monitoring | +--------+ + + + + | 10/16/ | Orders Only | Cardiology | Katie Bee | | | 2018 | | | [address] | | +--------+ + + + + from Last 3 Months Family History + + +------+ + | Medical History | Relation | Name | Comments | + + +------+ + | Hypertension | Father | | | + + +------+ + | Diabetes, NIDDM | Mother | | | + + [...] | | + +------+ + + | Father | | | | + +------+ + + | Mother | | | TIA,triple bypass, HTN, Hyperlipidemia | + +------+ + + | Mother | | | | + +------+ + + Social History + +-------+ +--------+------+ [...] recent travel history available. | + + Last Filed Vital Signs + + + + | Vital Sign | Reading | Time Taken | + + + + | Blood Pressure | 140/64 | 11/27/20181513 PDT | + + + + | Pulse | 71 | 11/27/20181513 PDT | + + + + | Temperature | 36.6 C (97.9 F) | 10/02/2018 1800 PDT | + + + + | Respiratory Rate | 18 | 10/16/2018 1009 PDT | + + + + | Oxygen Saturation | 98% | 11/27/20181513 PDT | + + + + | Inhaled Oxygen | - | - | | Concentration | | | + + + + | Weight | 140 kg (308 lb 9.6 | 11/27/20181513 PDT | | | oz) | | + + + + | Height | 170.2 cm (5' 7") | 11/27/20181513 PDT | + + + + | Body Mass Index | 48.33 | 11/27/20181513 PDT | + + + + Plan [...] [address] | | | | | | [place] [address] | | | | | | [phone] | | | | | | | | +--------+ + + + + | 01/28/ | Office | Cardiology | Dale Lopez, | | | 2018 | Visit | | MD [address] | | | | | | [place] | | | | | | [address] | | | | | | | | +--------+ + + + + | 03/11/ | Procedure | Cardiology | | | | 2018 | visit | | | | +--------+ + + + + + + + + + | Health Maintenance | Due Date | Last Done | Comments | + + + + + | Hepatitis C | | | | | Screening | 5 | | | + + + + + | Diabetic Eye Exam | | | | | | 3 | | | + + + + + | Diabetic Foot Exam | | | | | | 3 | | | + + + + + | Hemoglobin A1c | | | | | Screening | 3 | | | + + + + [...] | + + + + + | Colorectal Cancer | | | | | Screening | 5 | | | | (Colonoscopy) | | | | + + + + + | Vaccine: Zoster (1 | | | | | of 2) | 5 | | | + + + + + | Breast Cancer | | | | | Screening | 0 | | | + + + + + | Statin Therapy | | | | | (optimal intensity) | 9 | | | + + + + + | Vaccine: Influenza | | | | | (#1) | 9 | | | + + + + + Procedures + +--------+ + + + | Procedure Name | Priori | Date/Time | Associated Diagnosis | Comments | | | ty | | | | + +--------+ + + + | LABS - EXTERNAL SCAN | | 11/28/2018 | | Results for this | | | | 0:00 PDT | | procedure are in the | | | | | | results section. | + +--------+ + + + from Last 3 Months Results LABS - EXTERNAL SCAN (11/28/2018 0:00 PDT) + + + | Narrative | Performed At | + + + | Ordered by an | | | unspecified provider. | | + + + from Last 3 Months Insurance +-------+--------+ +--------+-------+---------+------+ | Payer | Benefi | Subscriber | Effect | Phone | Address | Type | | | t Plan | ID | dionicio | | | | | | / | | Dates | | | | | | Group | | | | | | +-------+--------+ +--------+-------+---------+------+ | BCBS | BCBS | [id number] | 03/18/19 | | | PPO | | | OOS | 8 | 18-Pre | | | | | | PPO | | sent | | | | +-------+--------+ +--------+-------+---------+------+ + +--------+ +--------+ + + | Guarantor Name | Accoun | Relation to | Date | Phone | Billing Address | | | t Type | Patient | of | | | | | | | | | | + +--------+ +--------+ + + | Miriam Singletary | Person | Self [birth year] [address] | [address] | al/Fam | | 1955 | [phone] | [place] | | | [place] | | | [address] (Home) | [address] | + +--------+ +--------+ + + Advance Directives Patient has advance care planning documents on file. For more information, please contact:[facility] [place] [address]
--- OUTSIDE RECORDS SUMMARY | ~2019-01-10 | XMS | Encounter Summary ---
Demographics + + + | Address | [address] | | | [place] [address] | + + + | Home Phone | | + + + | Preferred Language | Unknown | + + + | Marital Status | | + + + | Yazidism Affiliation | 1013 | + + + | Race | Unknown | + + + | Ethnic Group | Unknown | + + + Author + + + | Author | [facility] | | | and [place] | + + + | Organization | [facility] | | [...] Team Providers + +------+ + | Care Deputy Director Of Public Works Name | Role | Phone | + +------+ + | Kris Driver | PCP | | | MD | | | + +------+ + Encounter Details +--------+ + + + + | Date | Type | Department | Care Team | Description | +--------+ + + + + | 10/16/ | Orders Only | [facility] | Katie Bee | | | 2019 | | CARDIOLOGY [place] | [address] | | | | | [address] | [address] | | | | | [address] | [place] [address] | | | | | [place] | [phone] | | | | | [address] | | | | | | [phone] | | | +--------+ + + + [...] | | | | | [place] [address] | | | | | | [phone] | | | | | | | | +--------+ + + + + | 01/28/ | Office | Cardiology | Dale Lopez, | | | 2018 | Visit | | MD [address] | | | | | | [place] | | | | | | [address] | | | | | | | | +--------+ + + + + | 03/11/ | Procedure | Cardiology | | | | 2019 | visit | | | | +--------+ + + + + documented as of this encounter Visit Diagnoses Not on filedocumented in this encounter
--- OUTSIDE RECORDS SUMMARY | ~2019-01-10 | XMS | Encounter Summary ---
Demographics + + + | Address | [address] | | | [place] [address] | + + + | Home Phone | | + + + | Preferred Language | Unknown | + + + | Marital Status | | + + + | Islam Affiliation | [id number] | + + + | Race | Unknown | + + + | Ethnic Group | Unknown | + + + Author + + + | Author | [facility] (Historical as of | | | 11-01-18) | + + + | Organization | [facility] (Historical as of | | | 11-01-18) [...] Team Providers + +------+ + | Care Couples Therapist Name | Role | Phone | + +------+ + | Jemma Escobedo MD | PCP | | + +------+ + Reason for Referral Cardiac Rehabilitation (Routine) + + + + + + + | Status | Reason | Specialty | Diagnoses / | Referred By | Referred To | | | | | Procedures | Contact | Contact | + + + + + + + | Authorized | Specialty | Cardiac | Diagnoses | Rohit, | [facility] | | | Services | Rehabilitatio | Coronary | Katie Lee, | [place] | | | Required | n | artery | [facility] [address] | Cardiac [address] | | | | | disease of | [address] | [facility] [place] | | | | | tribe | [address] | Way | | | | | artery of | [facility] [place] | [place] | | | | | tribe heart | [address] | [address] | | | | | with stable | Phone: | Phone: | | | | | angina | [phone] | [phone] | | | | | pectoris | Fax: | Fax: | | | | | ([facility]) | [phone] | [phone] | | | | | Chronic | | | | | | | combined | | | | | | | systolic and | | | | | | | diastolic | | | | | | | congestive | | | | | | | heart | | | | | | | failure, | | | | | | | NYHA class 3 | | | | | | | ([facility]) | | | | | | | Pacemaker | | | | | | | Mixed | | | | | | | dyslipidemia | | | | | | | Essential | | | | | | | hypertension | | | | | | | Persistent | | | | | | | atrial | | | | | | | fibrillation | | | | | | | (HCC) S/P | | | | | | | primary | | | | | | | angioplasty | | | | | | | with | | | | | | | coronary | | | | | | | stent Type | | | | | | | 2 diabetes | | | | | | | mellitus | | | | | | | without | | | | | | | complication | | | | | | | , with | | | | | | | long-term | | | | | | | current use | | | | | | | of insulin | | | | | | | (HCC) | | | | | | | Chronic | | | | | | | anticoagulat | | | | | | | ion | | | + + + + + + + Reason for Visit + + + | Reason | Comments | + + + | Follow-up | Hospital | + + + Encounter Details +--------+---------+ + + + | Date | Type | Department | Care Team | Description | +--------+---------+ + + + | 10/16/ | Office | [facility] | Katie Bee | Coronary artery | | 2019 | Visit | Cardiology Jossie | [address] | disease of tribe | | | | [address] | [address] | artery of tribe | | | | [address] | [place] [address] | heart with stable | | | | [place] [address] | [phone] | angina pectoris | | | | [phone] | | ([facility]) (Primary Dx); | | | | | | 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 | | | | | | diastolic congestive | | | | | | heart failure, NYHA | | | | | | class 3 ([facility]); | | | | | | Pacemaker; Mixed | | | | | | dyslipidemia; | | | | | | Essential | | | | | | hypertension; | | | | | | Persistent atrial | | | | | | fibrillation ([facility]); | | | | | | S/P primary | | | | | | angioplasty with | | | | | | coronary stent; | | | | | | Obstructive sleep | | | | | | apnea | +--------+---------+ + + + Social History + + + [...] on file | | + + + as of this encounter Last Filed Vital Signs + + + + | Vital Sign | Reading | Time Taken | + + + + | Blood Pressure | 148/72 | 10/16/2018 10:01 AM PDT | + + + + | Pulse | 67 | 10/16/2018 10:01 AM PDT | + + + + | Temperature | - | - | + + + + | Respiratory [...] AM PDT | + + + + in this encounter Instructions Patient Instructions - Rohit МаринаGOLDEN Lee - 10/16/2018 10:00 AM PDTStop Vit C to he lp decrease stomache upset I have ordered you fasting labs to be done at [facility] in the next week I also ordered you Hydralazine 25 mg BID See me back in 6 weeks in this encounter Progress Notes Rohit МаринаGOLDEN - 10/16/2018 10:00 AM PDTFormatting of this note may be differen t from the original. Date of visit: 10/16/2018 Primary Care Physician: JEMMA ESCOBEDO CHIEF COMPLAINT: Chief Complaint Patient presents with Follow-up Hospital HISTORY OF PRESENT ILLNESS: Ms. Miriam Singletary is a 63 year old randa who is here today to follow up having stents placed on October 02 at [facility] She is a patient of Dr. Lopez, who is her primary chlorine plant operator last seen by him in [facility] on August 20, 2018, but also performed her diagnostic angiogram on September 02. Today, I reviewed all previous documentation available to me in electronic medical [address] and from external sources. She has a history of coronary artery disease with stent placement to proximal LAD and mid RCA 10/02/2018, chronic atrial fibrillation, congestive heart failure with a EF of 45% NYHA C lass III, hypertension, hyperlipidemia, pacemaker for sick sinus syndrome ,previous RI, type 2 diabetes, sleep apnea, and is a current smoker She is anticoagulated on Xarelto for [id number] VASC score of 5( gender, HF, HTN, DM, vasc dis). Recommendations after her stent placement are for aspirin 81 mg for 3 months, then stop un til Plavix therapy completed due to triple therapy, then continue aspirin indefinitely, Plav ix for 1 year, aggressive risk factor modification, and referral to cardiac rehab Her current and previous testing and procedures are detailed below . She reports today that she feels considerably improved , with increased energy, and has no t had any chest since immediately after her stents placed, when she had, nausea, vomiting, a nd chest pain, resolved with GI cocktail, sl nitro, and Zofran. She reports it may have been secondary to Plavix load of 600 mg on empty stomach causing GI upset and nausea. She report s still has heartburn symptoms after Plavix, and uses Tums. She reports occasional mild pedal edema, but denies any palpitations, dyspnea with or without exertion, dizziness,or syncope. She also denies any signs or symptoms of stroke or T IA, or any illness, surgery, or hospitalization since last seen. Her right femoral puncture site is well healed, and she denies any bleeding, hematoma , o r pain to site after procedure, and strong femoral pulse, and palpable pedal pulses. She is still smoking 6 cigarettes per day, and has smoked since the age of [age] years old be tween .5-1 PPD, but did quit for 10 years or so in that time frame. She is planning to quit by January, but finds it difficult, as her daughter who is also a smoker , encourages her t o smoke with her She denies any use of alcohol, or recreational or illicit drugs, but does drink one 12 oz serving per day of Diet Pepsi , and used to drink 2-3 per day. She is trying to drink more water , and less soda. She is trying to be more active , and walking 4000 steps, and plans to increase that once starts Cardiac Rehab, and has been accepted at cardiac rehab program at [facility]. She has been working on losing weight with portion control, and has lost 32 lbs since 8/20 17 when weighed 346 lbs. She has not had a recent A1C, and does not check her blood sugars at home , and reports sh e has not had lipid panel checked in some time either . She did not bring her medication bottles to clinic today, and I reviewed her medication li st with her , and only taking Torsemide prn due to previous problems with being over diurese d, , and hydralazine for SBP > 160 1 hour after medications, but reports she has not used it lately though blood pressure high. REVIEW OF SYSTEMS: Negative except for pertinent items noted in HPI. Constitutional: Has lost 32 lbs since 10/2016 when weighed 346 lbs. Denies fatigue or unex plained weight loss. Appetite is good. Denies night sweats fevers or chills HENT: Denies nosebleeds. Denies hearing problems. Denies dysphagia Eyes: Hx Bilateral cataract surgery. Denies visual disturbance or double vision. Respiratory/Sleep:: Obstructive sleep apnea on CPAP since 2003, Perez Roland. Pre vious shortness of breath resolved since stents. Denies cough Denies hemoptysis or excessi ve sputum production. Denies orthopnea, PND. Cardiovascular: Mild pedal edema. Denies chest pain, palpitations. Denies history of rheum atic fever. Denies claudication . Gastrointestinal: Reflux symptoms with Plavix ., taking Tums Denies nausea, vomiting, ab dominal pain and blood in stool. Genitourinary: Denies hematuria. Musculoskeletal:Some hip pain. Denies myalgias, back pain and arthralgias. Skin: Denies color change. Denies rash or lesions Neurological: Denies history of stroke/Transient ischemic attack.Denies history of seizures . Denies dizziness, syncope and numbness. Hematological/Oncology . Bruises easily. Denies bleeding Denies history of cancer Endocrine: IDDM, Denies thyroid disease. Denies excessive thirst or hunger. Psychiatric/Behavioral: situational depression when son when to [place]. Denies any history o f depression or anxiety or other psychiatric illness. Vaccines: Current on 2018 flu vaccine. Current on pneumonia vaccine.PPSV 23 and Prevnar 13 Habits/Social : Current smoker of 6 cigarettes per day, Has smoked 1/2 ppd-1 ppd since age of 18. Denies EtOH use. Drinks 1-2servings of diet pepsi daily . Denies recreational or i llicit drug use. Exercises with Walking 4000 steps and tolerates. Lives in [place] . 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 Outpatient Medications Prior to Visit Medication Sig Dispense Refill Ascorbic Acid 500 MG CAPS Take 500 mg by mouth daily. aspirin 81 MG EC tablet Take 1 tablet by mouth daily. 90 tablet 3 atorvastatin (LIPITOR) 20 MG tablet Take 20 mg by mouth daily. carvedilol (COREG CR) 20 MG 24 hr capsule Take 20 mg by mouth 2 (two) times daily. cetirizine (ZYRTEC) 10 MG chewable tablet Take 10 mg by mouth daily. Cholecalciferol 1000 UNITS capsule Take 1,000 Units by mouth 2 (two) times daily. clopidogrel (PLAVIX) 75 MG tablet Take 1 tablet by mouth daily. 90 tablet 3 digoxin (LANOXIN) 0.125 MG tablet Take 1 tablet by mouth daily. 90 tablet 1 diltiazem (TIAZAC) 360 MG 24 hr capsule Take 360 mg by mouth daily. docusate sodium (COLACE) 100 MG capsule Take 100 mg by mouth as needed. Insulin Detemir (LEVEMIR FLEXTOUCH SC) Inject 95 Units into the skin daily. insulin lispro, human, (HUMALOG) 100 UNIT/ML injection Inject 10 Units into the skin 3 (three) times daily before meals. TID sliding scale lisinopril (ZESTRIL) 40 MG tablet Take 1 tablet by mouth daily. 30 tablet 0 magnesium oxide (MAG-OX) 400 MG tablet Take 400 mg by mouth daily. Multiple Minerals-Vitamins (MTQLLEO-HLJKUXBRE-VESM-D3 PO) Take by mouth 2 (two) times daily. MULTIPLE VITAMIN PO Take by mouth daily. potassium chloride (K-DUR) 10 MEQ tablet Take 20 mEq by mouth 2 (two) times daily with meals. rivaroxaban (XARELTO) 20 MG tablet Take 20 mg by mouth daily with dinner. torsemide (DEMADEX) 20 MG tablet Take 2 tablets by mouth daily. (Patient taking differe ntly: Take 40 mg by mouth as needed.) 120 tablet 1 hydrALAZINE (APRESOLINE) 50 MG tablet Take 1 tablet by mouth daily as needed (SBP>160). 30 tablet 2 cyanocobalamin (VITAMIN B-12) 1000 MCG tablet Take 1,000 mcg by mouth 2 (two) times alka ly. No facility-administered medications prior to visit. PHYSICAL EXAM: Wt Readings from Last 3 Encounters: 10/16/18 142.5 kg (314 lb 3.2 oz) 10/02/18 139.7 kg (307 lb 15.7 oz) 08/20/18 139.2 kg (306 lb 12.8 oz) Temp Readings from Last 3 Encounters: 10/02/18 97.9 F (36.6 C) (Oral) 01/14/16 98.6 F (37 C) (Oral) 07/10/11 97.7 F (36.5 C) (Oral) BP Readings from Last 3 Encounters: 10/16/18 148/72 10/02/18 169/72 08/20/18 138/62 Pulse Readings from Last 3 Encounters: 10/16/18 67 10/02/18 77 08/20/18 76 GENERAL: Well developed, well nourished, in no distress. Appears approximately stated age . HEENT: Normocephalic, atraumatic. EYES: PERRL, EOM normal. MOUTH: Oral mucosae moist, dentition poor, no lesions noted NECK: No JVD, lymphadenopathy, thyromegaly, bruits. Carotid pulses are 2+ bilaterally LUNGS/CHEST: Clear bilaterally, with no rales, rhonchi or wheezing noted, respirations unl abored HEART:Pacer site LENA well healed, stable to palpation. Nondisplaced PMI, irregularly irre gular rhythm w/controlled rate S1, S2 normal. No murmurs, rubs or gallops noted. ABDOMEN: Soft, nontender, no organomegaly, masses or bruits. Bowel sounds are normal in a ll 4 quadrants. The abdominal aortic pulsation is not palpable. EXTREMITIES: Mild pedal edema. Radial pulses 2+ bilaterally. Femoral pulses are 2+ bilat erally without bruits. DP and PT pulses are 2+ bilaterally. No clubbing. R femoral punctur e site well healed. SKIN: Warm and dry, capillary refill is normal, no lesions. NEUROLOGIC: Awake, alert and oriented x 3. No focal motor or sensory deficits. PSYCHIATRIC: Appropriate, affect appears normal DATA: Blood tests: Lab Results Component Value Date WBC 9.06 10/02/2018 RBC 4.99 10/02/2018 HGB 15.0 10/02/2018 HCT 43.8 10/02/2018 PLT 310 10/02/2018 Lab Results Component Value Date NA 145 10/02/2018 K 4.0 10/02/2018 CL 110 (H) 10/02/2018 CO2 28 10/02/2018 ANIONGAP 11 10/02/2018 GLUF 230 (H) 10/02/2018 BUN 8 10/02/2018 CREATININE 0.75 10/02/2018 BCR 11 10/02/2018 CA 9.0 10/02/2018 EGFR >60 10/02/2018 Lab Results Component Value Date GLUF 230 (H) 10/02/2018 Lab Results Component Value Date TSH 1.97 10/17/2016 No results found for: METF, NMETFX, TFNMFX, IEDTUYX01EID, BSLTXH25HDS, TOTEPI CARDIAC PROCEDURES/IMAGING Last angiogram/PCI: 10/02/2018: ([facility]) : The vessel coronary artery disease with severe dise ase to the proximal LAD, and stable disease to the RCA and left circumflex. Angioplasty of proximal LAD with KARTIK Synergy 2.5 x 32 mm. Angioplasty for the mid RCA with KARTIK Resolute Macie x 2.0. ANGIOGRAPHIC FINDINGS: Left main: Large caliber vessel with normal origin, bifurcates to LA D and left circumflex contacts, no significant disease. LAD: large caliber vessel wraps arou nd the apex gives moderate diagonal branch. Proximal LAD h severe 90% stenosis and mild dif fuse disease in the rest of the LAD system.Left CX:large caliber dominant vessel gives large OM branch and large circumflex proper, mild diffuse disease in L CX system. OM branch has 30%-40% mid segment stenosis, unchanged from previous angiogram.RCA: small nondominant vesse l w/ severe 70% stenosis in the mid segment, again unchanged from previous angiogram and ag ain the vessel is small and caliber. Angiogram : 07/10/2011: Left main OK, 30% mid-LAD, LCx luminal irreg, 40% prox-OM1, 75-80% sxu-qds-sededjhb RCA. LVEF 55%. Last Stress test: 05/27/2018 ([facility]): 2-day Lexiscan MPI, moderate size with mildl y reversible defect consistent with inferior ischemia, LVEF 46%. VASCULAR TESTING AND PROCEDURES-none PACER Implant: 01/13/2016: Generator:dual-chamber pacemaker, Medtronic. Model number is [id number], s erial number [id number]. RV LEAD: model number is [id number], 58 cm, Medtronic, implanted in th e right ventricular septum.RA LEAD: model number [id number], length 52 cm, Medtronic, implanted in the right appendage. Settings; DDD, Mode switch on . 60-130 bpm Last pacer interrogation: 09/10/2018: Battery longevity 5 years (4-6 years). 3.0 V. Lead i mpedance and threshold values reviewed and acceptable. Settings VVIR 60-130. RA paced<0.1% . RV paced 35.4% EVENTS: 93 days with more than 6 hours of AT/AF, average ventricular rate greater than 100 bpm for 6 hours during AT/AF. 100% AT/AF programmed VVIR.Ventricular high r ate episodes: 12 SVT episodes- Afib w/RVR. 2 Fast A&V episodes also Afib w/RVR. ECHO Last Echo: 08/18/2015 ([facility]): TDS, A fib, LVEDd 65mm, LVEF 45-50%, mild global hypoki nesis. Moderately dilated left ventricle. Severe LAE, moderate LILI, trace MR, trace TR, mi ld PI, Acecnding Aorta 40mm, mild pulmonary hypertension, RVSP 39.1 mmHg EKG/EVENT MONITOR 14-day Cardiac Event Monitor, 12/06/2015: Sinus rhythm, 46-148, 21% A fib burden, 50-148bpm, 11 pauses, longest pause 6.4sec, symptoms of dizziness correlate with A fib at high heart r ates. EK10/02/2018: Atrial fib with controlled ventricular response, LAFB. Nonspecific ST and T wave abnormality. Rate 84 bpm, QRS 96 ms, QTC 496 ms. Tracing personally reviewed by me. EK10/16/2018, atrial fibrillation with controlled ventricular response, LAFB, nonspecific ST/T wave abnormality, occasional paced complex. Tracing personally reviewed by me. and com pared to EKG performed October 02, rate is more controlled LABS Labs: 10/17/2016: CMP: glucose 286, BUN 12, creatinine 0.87, albumin 4, total bili 0.5, alk phos 94, ALT 25, AST 21, sodium 135, potassium 4.1, chloride 99, GFR 66. Thyroid : TSH 1.97 8 CBC: WBC 11.1, RBC 5.01, hemoglobin 15, hematocrit 44, platelets 308 Labs: 06/18/2018:( [facility]) CMP: Sodium 138, potassium 3.9, chloride 102, glucose 181, BUN 10 , creatinine 0.71, GFR 83, AST 21, ALT 23, alk phos 92, total bili 0.5, albumin 3.8. Amylas e 23. Lipase 39. Troponin T <0.010. CK 55. BNP 74. D-dimer <100. H. pylori negative. CBC: WBC 10.3, RBC 4.79, hemoglobin 14.7, hematocrit 42.6, platelets 280 Labs:: 10/02/2018: CMP: 145, potassium 4, chloride 110, glucose 230, BUN 8, creatinine 0.75, albumin 4.3, total bili 0.5, alk phos 117, AST 20, ALT 20, GFR >60. CBC: WBC 9.06, RBC 4.9 9, hemoglobin 15, hematocrit 43.8, platelets 310 ASSESSMENT & PLAN: She was here to follow up after having stents placed on October 02 at [facility]. She has problems as detailed below. Her EKG performed in the clinic shows atrial fibrillation with controlled ventricular resp onse at 67 bpm, and occasional paced complex, and pacer interrogation in August shows stable d evice function, 100% atrial fibrillation with some episodes of Afib with RVR, and 5 years of battery longevity . I reviewed results with her . Overall she has recovered well from procedure, and reports resolution of chest pain and DO E since stents placed. Her blood pressure has been running on the high side, and she has some mild pedal edema , and I have changed her prn Hydralazine to 25 mg BID . I may also add her torsemide back in future for 3 times per week, but today I made no othe r changes to cardiac medications. , and she should continue torsemide 40 mg prn for fluid ov erload, Xarelto 20 mg daily for stroke prevention, lisinopril 40 mg daily , diltiazem 360 mg daily for atrial fib and heart rate control, digoxin .125 mg for rate control , Plavix 75 m g daily for stent for one year ( until 10/03/2019), ASA 81 mg for 3 months until 01/02/2019, then stop until 09/2019 when will replace Plavix, atorvastatin 20 mg qhs for hyperlipidemia , and carvedilol 20 mg BID for heart failure. I have ordered updated CBC, CMP, lipid panel, A1c, and digoxin level . She has also been referred and accepted to cardiac rehab program at [facility] I have also strongly encouraged her to quit smoking, and supported her positive lifestyle changes with weight loss and exercise . I will see her back in 6 weeks 1. 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 Chronic combined systolic and diastolic congestive heart failure, NYHA class 3 (HCC) 3. Pacemaker 4. Mixed dyslipidemia 5. Essential hypertension 6. Persistent atrial fibrillation (HCC) 7. S/P primary angioplasty with coronary stent 8. Obstructive sleep apnea 9. Type 2 diabetes mellitus without complication, with long-term current use of insulin (HC C) 10. Screening for deficiency anemia 11. Chronic anticoagulation 12. Encounter for monitoring digoxin therapy Orders Placed This Encounter Procedures Comprehensive metabolic panel Lipid panel Glycohemoglobin A1c CBC W/Auto Diff (Reflex to Manual) Digoxin level Ambulatory referral to Cardiac Rehab Electrocardiogram, 12-lead The following portions of the patient's history were personally reviewed by me and updated as appropriate: EKG tracings, other specialty provider and PCP notes,any Hospital admission and discharge summaries, any ER records , current and previous cardiac testing and procedure reports and d beau, medication bottles NOT brought to visit today .Allergies, current medications.labs Family history, past medical history, past social history, past surgical history. Problem list. GOLDEN Hodge [facility] Cardiology 10/16/2018in this encounter Plan of Treatment +--------+ + + + + | Date | Type | Specialty | Care Team | Description | +--------+ + + + + | 01/28/ | Office | Cardiology | Dale Lopez, | | | 2018 | Visit | | [address] | | | | | | [address], | | | | | | [place] [address] | | | | | | [phone] | | | | | | | | +--------+ + + + + | 03/11/ | Documentati | Cardiology | | | | 2019 | on Only | | | | +--------+ + + + + + +--------+ + + | Name | Priori | Associated Diagnoses | Order Schedule | | | ty | | | + +--------+ + + | Comprehensive metabolic panel | Routin | Mixed dyslipidemia | Expected: | | | e | Type 2 diabetes | 10/16/2018, Expires: | | | | mellitus without | 10/17/2019 | | | | complication, with | | | | | long-term current | | | | | use of insulin (HCC) | | + +--------+ + + | Lipid panel | Routin | Mixed dyslipidemia | Expected: | | | e | | 10/16/2018, Expires: | | | | | 10/17/2019 | + +--------+ + + | Glycohemoglobin A1c | Routin | Type 2 diabetes | Expected: | | | e | mellitus without | 10/16/2018, Expires: | | | | complication, with | 10/16/2019 | | | | long-term current | | | | | use of insulin ([facility]) | | + +--------+ + + | CBC W/Auto Diff (Reflex to | Routin | S/P primary | Expected: | | Manual) | e | angioplasty with | 10/16/2018, Expires: | | | | coronary stent | 10/16/2019 | | | | Screening for | | | | | deficiency anemia | | + +--------+ + + | Digoxin level | Routin | Persistent atrial | Expected: | | | e | fibrillation (HCC) | 10/16/2018, Expires: | | | | Encounter for | 10/17/2019 | | | | monitoring digoxin | | | | | therapy | | + +--------+ + + + +--------+ + + | Name | Priori | Associated Diagnoses | Order Schedule | | | ty | | | + +--------+ + + | Ambulatory referral to Cardiac | Routin | Coronary artery | Ordered: 10/16/2018 | | Rehab | e | disease of tribe | | | | | artery of tribe | | | | | heart with stable | | | | | angina pectoris | | | | | ([facility]) Chronic | | | | | combined systolic | | | | | and diastolic | | | | | congestive heart | | | | | failure, NYHA class | | | | | 3 ([facility]) Pacemaker | | | | | Mixed dyslipidemia | | | | | Essential | | | | | hypertension | | | | | Persistent atrial | | | | | fibrillation ([facility]) | | | | | S/P primary | | | | | angioplasty with | | | | | coronary stent Type | | | | | 2 diabetes mellitus | | | | | without | | | | | complication, with | | | | | long-term current | | | | | use of insulin ([facility]) | | | | | Chronic | | | | | anticoagulation | | + +--------+ + + as of this encounter Procedures + +--------+ + + + | Procedure Name | Priori | Date/Time | Associated Diagnosis | Comments | | | ty | | | | + +--------+ + + + | EKG STANDARD 12 LEAD | Routin | 10/16/2018 | Coronary artery | Results for this | | | e | 10:07 AM | disease of tribe | procedure are in the | | | | PDT | artery of tribe | results section. | | | | | heart with stable | | | | | | angina pectoris | | | | | | ([facility]) Chronic | | | | | | combined systolic | | | | | | and diastolic | | | | | | congestive heart | | | | | | failure, NYHA class | | | | | | 3 ([facility]) Pacemaker | | | | | | Mixed dyslipidemia | | | | | | Essential | | | | | | hypertension | | | | | | Persistent atrial | | | | | | fibrillation ([facility]) | | | | | | S/P primary | | | | | | angioplasty with | | | | | | coronary stent | | | | | | Obstructive sleep | | | | | | apnea | | + +--------+ + + + in this encounter Results EKG STANDARD 12 LEAD (10/16/2018 10:07 AM) + + + + + | Component | Value | Ref Range | Performed At | + + + + + | Ventricular Rate | 67 | BPM | [facility] | + + + + + | Atrial Rate | 77 | BPM | [facility] | + + + + + | QRS Duration | 98 | ms | [facility] | + + + + + | Q-T Interval | 390 | ms | [facility] | + + + + + | QTC Calculation | 412 | ms | [facility] | | (Bezet) | | | | + + + + + | Calculated R [place] | -53 | degrees | [facility] | + + + + + | Calculated T [place] | 109 | degrees | [facility] | + + + + + | Diagnosis | Please refer to | | [facility] | | | Providers office visit | | | | | note for Providers | | | | | Interpretation.Confirmed | | | | | by [facility] [place] Read Only, | | | | | SELAM Knapp ([id number]), | | | | | senior technical editor Carlos A Zafar | | | | | ([id number]) on 10/16/2018 | | | | | 10:40:46 AM | | | + + + + + + + + + + | Performing | Address | City/State/Zipcode | Phone Number | | Organization | | | | + + + + + | [facility] | [address] 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 | | (HCC) - Primary | + + | Chronic combined systolic and diastolic congestive heart failure, NYHA class 3 (HCC) | + + | Pacemaker | + + | Cardiac pacemaker in situ | + + | Mixed dyslipidemia | + + | Mixed hyperlipidemia | + + | Essential hypertension | + + | Unspecified essential hypertension | + + | Persistent atrial fibrillation (HCC) | + + | Atrial fibrillation | + + | S/P primary angioplasty with coronary stent | + + | Postsurgical percutaneous transluminal coronary angioplasty status | + + | Obstructive sleep apnea | + + | Obstructive sleep apnea (adult) (pediatric) | + + | Type 2 diabetes mellitus without complication, with long-term current use of insulin | | (HCC) | + + | Screening for deficiency anemia | + + | Screening for other and unspecified deficiency anemia | + + | Chronic anticoagulation | + + | Encounter for long-term (current) use of anticoagulants | + + | Encounter for monitoring digoxin therapy | + + | Encounter for therapeutic drug monitoring | + +
--- OUTSIDE RECORDS SUMMARY | ~2019-01-10 | XMS | Encounter Summary ---
Demographics + + + | Address | [address] | | | [place] [address] | + + + | Home Phone | | + + + | Preferred Language | Unknown | + + + | Marital Status | | + + + | Scientology Affiliation | 1013 | + + + | Race | Unknown | + + + | Ethnic Group | Unknown | + + + Author + + + | Author | [facility] (Historical as of | | | 11-01-18) | + + + | Organization | [facility] (Historical as of | | | 11-01-18) [...] Team Providers + +------+ + | Care Chef De Froid Name | Role | Phone | + [...] | Required | n | artery | ACQUISITION MARKETING COORDINATOR [address] | Cardiac [address] | | | | | disease of | [address]ria [address]ales | [facility] | | | | | [place] | [address] | Way | | | | | artery of | [facility], [place] | [place] | | | | | [place] heart | [address] | [address] | | | | | with stable | Phone: | Phone: | | | | | angina | [phone] | [phone] | | | | | pectoris | Fax: | Fax: | | | | | ([facility]) | [phone] | [phone] | | | | | Chronic | [...] | | | | | | | ([facility]) | | | | | | [...] | [address] | disease of [place] | | | | [address] | [address] | artery of [place] | | | | [address] | [place] [address] | heart with stable | | | | [place] [address] | [phone] | angina pectoris | | | | [phone] | | ([facility]) (Primary Dx); | | | | | | 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 | | | | | | diastolic congestive | | | | | | heart failure, NYHA | | | | | | class 3 ([facility]); | | | | | | Pacemaker; Mixed | | | | | | dyslipidemia; | | | | | | Essential | | | | | | hypertension; | | | | | | Persistent atrial | | | | | | fibrillation ([facility]); | | | | | | [...] you fasting labs to be done at [facility] in the next week I also ordered [...] having stents placed on October [address] [facility] She is a patient of Dr. Lopez, who is her primary school nurse last seen by him in [facility] on August 20, 2018, but also [...] hyperlipidemia, pacemaker for sick sinus syndrome ,previous [place], type 2 diabetes, sleep apnea, and is a current smoker She is anticoagulated on Xarelto for SNL1AG8 VASC score of 5( gender, HF, HTN, [...] been accepted at cardiac rehab program at [facility]. She has been working on losing weight [...] Walking 4000 steps and tolerates. Lives in [place] . 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 Outpatient Medications [...] 400 mg by mouth daily. Multiple Minerals-Vitamins (NLHQZDS-KRHAVJMPT-ERSE-D3 PO) Take by mouth 2 (two) times [...] No results found for: METF, NMETFX, TFNMFX, YKHZGCP94JCO, VUHYRW78NDP, TOTEPI CARDIAC PROCEDURES/IMAGING Last angiogram/PCI: 10/02/2018: ([facility]) : The vessel coronary artery disease with [...] mid-LAD, LCx luminal irreg, 40% prox-OM1, 75-80% wig-dxw-gxjtdpls RCA. LVEF 55%. Last Stress test: 05/27/2018 ([facility]): 2-day Lexiscan MPI, moderate size with mildl y reversible defect consistent with inferior ischemia, LVEF 46%. VASCULAR TESTING AND PROCEDURES-none PACER Implant: 01/13/2016: Generator:dual-chamber pacemaker, Medtronic. Model number is [id number], s erial number [id number]. RV LEAD: model number is [id number], 58 cm, Medtronic, implanted in th e right ventricular septum.RA LEAD: model number [id number], length 52 cm, Medtronic, implanted in the [...] 15, hematocrit 44, platelets 308 Labs: 06/18/2018:( [facility]) CMP: Sodium 138, potassium 3.9, chloride [...] having stents placed on October [address] [facility]. She has problems as detailed below. [...] and accepted to cardiac rehab program at [facility] I have also strongly encouraged her to quit smoking, and supported her positive lifestyle changes with weight loss and exercise . I will see her back in 6 weeks 1. Coronary artery disease of [place] artery of [place] heart with stable angina pectoris ([facility]) [...] past surgical history. Problem list. [facility] 10/16/2018in this encounter Plan of Treatment +--------+ + + + + | Date | Type | Specialty | Care Team | Description | +--------+ + + + + | 01/28/ | Office | Cardiology | Dale Lopez, | | | 2018 | Visit | | [address] | | | | | | [address], | | | | | | [place] [address] | | | | | | [phone] | | | | | | | [...] | | | | use of insulin ([facility]) | | + +--------+ + + [...] | Rehab | e | disease of [place] | | | | | artery of [place] | | | | | heart with stable | | | | | angina pectoris | | | | | ([facility]) Chronic | | | | | combined systolic | | | | | and diastolic | | | | | congestive heart | | | | | failure, NYHA class | | | | | 3 ([facility]) Pacemaker | | | | | Mixed dyslipidemia | | | | | Essential | | | | | hypertension | | | | | Persistent atrial | | | | | fibrillation ([facility]) | | | | | S/P primary | | | | | angioplasty with | | | | | coronary stent Type | | | | | 2 diabetes mellitus | | | | | without | | | | | complication, with | | | | | long-term current | | | | | use of insulin ([facility]) | | | | | Chronic [...] e | 10:07 AM | disease of [place] | procedure are in the | | | | PDT | artery of [place] | results section. | | | | | heart with stable | | | | | | angina pectoris | | | | | | ([facility]) Chronic | | | | | | combined systolic | | | | | | and diastolic | | | | | | congestive heart | | | | | | failure, NYHA class | | | | | | 3 ([facility]) Pacemaker | | | | | | Mixed dyslipidemia | | | | | | Essential | | | | | | hypertension | | | | | | Persistent atrial | | | | | | fibrillation ([facility]) | | | | | | [...] Ventricular Rate | 67 | BPM | [facility] | + + + + + [...] + + + + | Calculated R [place] | -53 | degrees | [facility] | + + + + + | Calculated T [place] | 109 | degrees | [facility] | + + + + + | Diagnosis | Please refer to | | [facility] | | | Providers office visit | | | | | note for Providers | | | | | Interpretation.Confirmed | | | | | by [facility] [place] Read [facility], | | | | | SELAM Knapp ([id number]), | | | | | slot editor Carlos A Zafar | | | | | ([id number]) on 10/16/2018 | | | | | 10:40:46 AM | | | + + + + + + + + + + | Performing | Address | City/State/Zipcode | Phone Number | | Organization | | | | + + + + + | [facility] | [address] | [place] [address] | | + + + + + in this encounter Visit Diagnoses + + | Diagnosis | + + | Coronary artery disease of [place] artery of [place] heart with stable angina pectoris | | [...]
--- OUTSIDE RECORDS SUMMARY | ~2019-01-10 | XMS | Encounter Summary ---
Demographics + + + | Address | [address] | | | [place] [address] | + + + | Home Phone | | + + + | Preferred Language | Unknown | + + + | Marital Status | | + + + | Mosque Affiliation | 1013 | + + + [...] Team Providers + +------+ + | Care Manager Oracle Name | Role | Phone | + [...] + + | 12/10/ | Telephone | [facility] | Katie Bee | Advice Only | | 2019 | | [facility]ARDIOLOGY [place] | [address] | | | | | [address] | [address] | | | | | [place], [place] | [place] [address] | | | | | [address] | [phone] | | | | | [phone] | | | +--------+ + + + [...] | | | | | [place] [address] | | | | | | [phone] | | | | | | | | +--------+ + + + + | 01/28/ | Office | Cardiology | Dale Lopez, | | | 2018 | Visit | | MD [address] | | | | | | [place] | | | | | | [address] | | | | | | | | +--------+ + + + + | 03/11/ | Procedure | Cardiology | | | | 2018 | visit | | | | +--------+ + + + + documented as of this encounter Visit Diagnoses Not on filedocumented in this encounter
--- OUTSIDE RECORDS SUMMARY | ~2019-01-10 | XMS | Encounter Summary ---
Demographics + + + | Address | [address] | | | [place] [address] | + + + | Home Phone | | + + + | Preferred Language | Unknown | + + + | Marital Status | | + + + | Episcopal Affiliation | 1013 | + + + | Race | Unknown | + + + | Ethnic Group | Unknown | + + + Author + + + | Author | [facility] (Historical as of | | | 11-01-18) | + + + | Organization | [facility] (Historical as of | | | 11-01-18) [...] Team Providers + +------+ + | Care Home Service Technician Name | Role | Phone | + +------+ + | Kris Driver MD | PCP | | + +------+ + Reason for Visit +--------+ + | Reason | Comments | +--------+ + | Other | [facility] Initial Consult 10/13/18 | +--------+ + Encounter Details +--------+ + + + + | Date | Type | Department | Care Team | Description | +--------+ + + + + | 10/14/ | Documentati | [facility] | Jeannine Reed MA | Other ([facility] | | 2019 | on Only | Cardiology [place] | | Cardiac Rehab | | | | [address] [facility] [address] | | Initial Consult | | | | [place] [address] | | 10/13/18) | | | | [place] [address] | | | | | | [phone] | | | +--------+ + + + + Social History + + + +--------+ + | Tobacco Use | Types | Packs/Day | Years | Date | | | | | Used | | + + + +--------+ + | Current Every Day | Cigarettes | 0.25 | | Started: 03/18/1971 | | Smoker | | | | | + + + +--------+ + + +---+---+---+ | Smokeless Tobacco: | | | | | Never Used | | | | + +---+---+---+ + + +---------+ + | Alcohol Use [...] + + + as of this encounter Plan of Treatment [...] | | | | | | [place] [address] | | | | | | [phone] | | | | | | | | +--------+ + + + + | 03/11/ | Documentati | Cardiology | | | | 2019 | on Only | | | | +--------+ + + + + as of this encounter Visit Diagnoses Not on filein this encounter
--- OUTSIDE RECORDS SUMMARY | ~2019-01-10 | XMS | Encounter Summary ---
Demographics + + + | Address | [address] | | | [place] [address] | + + + | Home Phone | | + + + | Preferred Language | Unknown | + + + | Marital Status | | + + + | Congregation Affiliation | 1013 | + + + | Race | Unknown | + + + | Ethnic Group | Unknown | + + + Author + + + | Author | [facility] (Historical as of | | | 11-01-18) | + + + | Organization | [facility] (Historical as of | | | 11-01-18) [...] Team Providers + +------+ + | Care Electric Mule Operator Name | Role | Phone | + [...] + | 10/14/ | Documentati | [facility] | Jeannine Reed MA | Other ([facility] | | 2019 | on Only | Cardiology [place] | | Cardiac Rehab | | | | [address] [facility] [address] | | Initial Consult | | | | [place] [address] | | 10/13/18) | | | | [place] [address] | | | | | | [phone] | | | +--------+ + + + [...] | | | | | | [place] [address] | | | | | | [phone] | | | | | | | | +--------+ + + + + | 03/11/ | Documentati | Cardiology | | | | 2019 | on Only | | | | +--------+ + + + + as of this encounter Visit Diagnoses Not on filein this encounter
--- OUTSIDE RECORDS SUMMARY | ~2019-01-10 | XMS | Encounter Summary ---
Demographics + + + | Address | [address] | | | [place] [address] | + + + | Home Phone | | + + + | Preferred Language | Unknown | + + + | Marital Status | | + + + | Jew Affiliation | 1013 | + + + | Race | Unknown | + + + | Ethnic Group | Unknown | + + + Author + + + | Author | [facility] | | | and [place] | + + + | Organization | [facility] | | | and [...] Team Providers + +------+ + | Care Entry Manager Name | Role | Phone | + +------+ + | Kris Driver | PCP | | | MD | | | + +------+ + Encounter Details +--------+ + + + + | Date | Type | Department | Care Team | Description | +--------+ + + + + | 10/31/ | Orders Only | [facility] | Katie Bee | Mixed | | 2019 | | CARDIOLOGY [place] | [address] | hyperlipidemia; Type | | | | [address] | [address] | 2 diabetes mellitus | | | | [address] | [place] [address] | without | | | | [place], [place] | [phone] | complications (HCC); | | | | [address] | | Presence of | | | | [phone] | | coronary angioplasty | | | [...] [address] | | | | | | [place] [address] | | | | | | [phone] | | | | | | | | +--------+ + + + + | 01/28/ | Office | Cardiology | Dale Lopez, | | | 2018 | Visit | | MD [address] | | | | | | [address] [place] | | | | | | [address] | | | | | | | [...]
--- OUTSIDE RECORDS SUMMARY | ~2019-01-10 | XMS | Encounter Summary ---
Demographics + + + | Address | [address] | | | [place] [address] | + + + | Home Phone | | + + + | Preferred Language | Unknown | + + + | Marital Status | | + + + | Baptism Affiliation | 1013 | + + + | Race | Unknown | + + + | Ethnic Group | Unknown | + + + Author + + + | Author | [facility] (Historical as of | | | 11-01-18) | + + + | Organization | [facility] (Historical as of | | | 11-01-18) [...] Team Providers + +------+ + | Care Aerodynamic Consultant Name | Role | Phone | + +------+ + | Kris Driver MD | PCP | | + +------+ + Reason for Visit +--------+ + | Reason | Comments | +--------+ + | Other | [facility] Referral (not co-signed) | +--------+ + Encounter Details +--------+ + + + + | Date | Type | Department | Care Team | Description | +--------+ + + + + | 10/20/ | Documentati | [facility] | Jeannine Reed MA | Other ([facility] | | 2019 | on Only | Cardiology [place] | | Cardiac Rehab | | | | [address] | | Referral (not | | | | [address] | | co-signed)) | | | | [place] [address] | | | | | | [phone] | | | +--------+ + + + [...] Cardiology | Dale Lopez, | | | 2019 | Visit | | MD [address] | | | | | | Dr [address], | | | | | | [place] [address] | | | | | | [phone] | | | | | | | | +--------+ + + + + | 03/11/ | Documentati | Cardiology | | | 2018 | on Only | | | | +--------+ + + + + as of this encounter Visit Diagnoses Not on filein this encounter
--- OUTSIDE RECORDS SUMMARY | ~2019-01-10 | XMS | Encounter Summary ---
Demographics + + + | Address | [address] | | | [place] [address] | + + + | Home Phone | | + + + | Preferred Language | Unknown | + + + | Marital Status | | + + + | Mandaen Affiliation | 1013 | + + + | Race | Unknown | + + + | Ethnic Group | Unknown | + + + Author + + + | Author | [facility] | | | and [place] | + + + | Organization | [facility] | | | and [...] Team Providers + +------+ + | Care News Clerk Name | Role | Phone | + +------+ + | Kris Driver | PCP | | | MD | | | + +------+ + Encounter Details +--------+ + + + + | Date | Type | Department | Care Team | Description | +--------+ + + + + | 12/04/ | Documentati | [facility] | Katie Bee | | | 2019 | on | CARDIOLOGY [place] | [address] | | | | | [address] | [address] | | | | | [address] | [place] [address] | | | | | [place] | [phone] | | | | | [address] | | | | | | [phone] | | | +--------+ + + + [...] | | | | | [place] [address] | | | | | | [phone] | | | | | | | | +--------+ + + + + | 01/28/ | Office | Cardiology | Dale Lopez, | | | 2018 | Visit | | MD [address] | | | | | | [address] [place] | | | | | | [address] | | | | | | | | +--------+ + + + + | 03/11/ | Procedure | Cardiology | | | | 2018 | visit | | | | +--------+ + + + + documented as of this encounter Visit Diagnoses Not on filedocumented in this encounter
--- OUTSIDE RECORDS SUMMARY | ~2019-01-10 | XMS | Encounter Summary ---
Demographics + + + | Address | [address] | | | [place] [address] | + + + | Home Phone | | + + + | Preferred Language | Unknown | + + + | Marital Status | | + + + | Pentecostal Affiliation | 1013 | + + + | Race | Unknown | + + + | Ethnic Group | Unknown | + + + Author + + + | Author | [facility] | | | and [place] | + + + | Organization | [facility] | | | and [...] Team Providers + +------+ + | Care Stencil Printer Name | Role | Phone | + +------+ + | Kris Driver | PCP | | | MD | | | + +------+ + Reason for Visit + + + | Reason | Comments | + + + | Follow-up | 6 week f/u | + + + Encounter Details +--------+---------+ + + + | Date | Type | Department | Care Team | Description | +--------+---------+ + + + | 11/27/ | Office | [facility] | Katie Bee | Coronary artery | | 2019 | Visit | CARDIOLOGY MAXIMO | [address] | disease of [place] | | | | [address] | [address] | artery of [place] | | | | [address] | [place] [address] | heart with stable | | | | [place] | [phone] | angina pectoris | | | | [address] | | (FORMERLY [facility]) (Primary Dx); | | | | [phone] | | 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 | | | | | | diastolic congestive | | | | | | heart failure, NYHA | | | | | | class 3 ([facility]); | | | | | | Pacemaker; Chronic | | | | | | atrial fibrillation | | | | | | ([facility]); S/P primary | | | | | [...] | | | | | anemia | +--------+---------+ + + + Social History + +-------+ [...] + + documented as of this encounter Last Filed Vital [...] + + + | Respiratory Rate | - | - | + + + + | Oxygen [...] 11/27/20181513 PDT | + + + + documented in this encounter Patient Instructions Patient Instructions Rohit Марина, FNP - 11/27/2018 15:00 PDTStop supplements as di scussed to decrease risk of side effects I have ordered you fasting labs to be done at [facility] Tomorrow I also ordered you Hydralazine 25 mg BID from [facility] [place] See me back in 6 weeks 15:5 7 PDT documented in this encounter Progress Notes Rohit Марина, FNP - 11/27/2018 1500 PDTFormatting of this note might be different f rom the original. Date of visit: 11/27/2018 Primary Care Physician: Kris Driver MD CHIEF COMPLAINT: Chief Complaint Patient presents with Follow-up 6 week f/u HISTORY OF PRESENT ILLNESS: Ms. Miriam SingletaryErika, is a 63 year old woman who is here today 6-week follow-up . She is accompanied today by her who contributed to history. She is a patient of Dr. Lopez, who is her primary skiff operator, and last seen by him in the clinic on August 20, 2018, but also [...] hyperlipidemia, pacemaker for sick sinus syndrome ,previous [place], type 2 diabetes, sleep apnea, and is a current smoker She is anticoagulated on Xarelto for LLU3DM2 VASC score of 5( gender, HF, HTN, DM, vasc dis). Recommendations after her stent placement are for aspirin 81 mg for 3 months, then stop un til Plavix therapy completed due to triple therapy, then continue aspirin indefinitely, Plav ix for 1 year, aggressive risk factor modification, and referral to cardiac rehab Her current and previous testing and procedures are detailed below . I saw her last on October 16, 2018 to follow up after she had stents placed on October 02 at [facility]. On that visit I strongly encouraged her to quit smoking, and started her on hydr alazine 25 mg twice daily , and ordered her an updated CBC, CMP, lipid panel, A1c, and digo shirin level . She reports today that she only used hydralazine for about a month as she never got a n ew supply online pharmacy, but did not contact me to order more for her from her local pharm gurpreet. She also forgot to get her labs performed. She has been attending cardiac rehab, and reports she has been tolerating it well. She reports today that she continues to feel considerably improved , with increased energy, and has not had any chest since she saw me last. She reports still has heartburn symptoms after Plavix, and uses Tums. She reports occasional mild pedal edema, but denies any palpitations, dyspnea with or without exertion, dizziness,or syncope. She also denies any signs or symptoms of stroke or T IA, or any illness, surgery, or hospitalization since last seen. She is still smoking 6 cigarettes per [...] be more active , and walking 4000 steps. She has been working on TUBE w eight with portion control, and has lost 32 lbs since 10/2016 when weighed 346 lbs. She has not had a recent A1C, and does not check her blood sugars at home , and reports sh feliz has not had lipid panel checked in some time either . She brought her medication bottles to clinic today, and I reviewed them with her personal ly. REVIEW OF SYSTEMS: Negative except for pertinent [...] Walking 4000 steps and tolerates. Lives in [place] . 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 Outpatient Medications Prior to Visit Medication Sig Dispense Refill Ascorbic Acid (VITAMIN C) 500 MG CAPS Take 500 mg by mouth daily. ASPIRIN 81 PO Take 81 mg by mouth Daily. atorvaSTATin (LIPITOR) 20 mg tablet Take 20 mg by mouth daily. Calcium Carbonate (CALCIUM 600 PO) Take 600 mg by mouth Daily. carvedilol (COREG CR) 20 MG 24 hr capsule Take 20 mg by mouth 2 (two) times daily. carvedilol (COREG) 25 mg tablet Take 25 mg by mouth 2 times daily (with breakfast & din ner). cetirizine (ZYRTEC) 10 MG chewable tablet Take 10 mg by mouth daily. clopidogrel (PLAVIX) 75 mg tablet Take 1 tablet by mouth daily. 90 tablet 3 cyanocobalamin (VITAMIN B-12) 1000 MCG tablet Take 1,000 mcg by mouth 2 (two) times alka ly. digoxin (LANOXIN) 125 mcg tablet Take 1 tablet by mouth daily. 90 tablet 1 dilTIAZem (TIAZAC) 360 MG 24 hr capsule Take 360 mg by mouth daily. docusate sodium (COLACE) 100 mg capsule Take 100 mg by mouth as needed. hydrALAZINE (APRESOLINE) 25 mg tablet Take 1 tablet by mouth 2 (two) times daily. 30 ta blet 11 Insulin Detemir (LEVEMIR FLEXTOUCH SC) Inject 95 Units into the skin daily. (Patient ta miki differently: Inject 100 Units under the skin 2 times daily.) insulin lispro (HUMALOG KWIKPEN) 100 units/mL injection (pen) Inject 10 Units into the skin 3 (three) times daily before meals. TID sliding scale lisinopril (PRINIVIL,ZESTRIL) 40 MG tablet Take 1 tablet by mouth daily. 30 tablet 0 magnesium oxide (MAG-OX) 400 mg tablet Take 400 mg by mouth daily. magnesium, as oxide, 250 MG tablet Take 250 mg by mouth 2 times daily. MULTIPLE VITAMIN PO Take by mouth daily. potassium chloride (KLOR-CON) 10 MEQ ER tablet Take 20 mEq by mouth 2 (two) times daily with meals. rivaroxaban (XARELTO) 20 mg tablet Take 20 mg by mouth daily with dinner. torsemide (DEMADEX) 20 mg tablet Take 2 tablets by mouth daily. (Patient taking differe ntly: Take 40 mg by mouth as needed.) 120 tablet 1 No facility-administered medications prior to visit. PHYSICAL EXAM: Wt Readings from Last 3 Encounters: 11/27/18 (!) 140 kg (308 lb 9.6 oz) 10/02/18 (!) 139.7 kg (307 lb 15.7 oz) 01/14/16 (!) 154.2 kg (340 lb) Temp Readings from Last 3 Encounters: 10/02/18 36.6 C (97.9 F) 01/14/16 37 C (98.6 F) BP Readings from Last 3 Encounters: 11/27/18 140/64 10/02/18 169/72 01/14/16 148/71 Pulse Readings from Last 3 Encounters: 11/27/18 71 10/02/18 77 01/14/16 66 GENERAL: Well developed, well nourished, in no [...] 10/02/2018 RBC 4.99 10/02/2018 HGB 15.0 10/02/2018 Lab Results Component Value Date NA 145 10/02/2018 K 4.0 10/02/2018 CL 110 (H) 10/02/2018 CO2 28 10/02/2018 ANIONGAP 11 10/02/2018 GLUF 230 (H) 10/02/2018 BUN 8 10/02/2018 BCR 11 10/02/2018 EGFR >60 10/02/2018 Lab Results Component Value Date GLUF 230 (H) 10/02/2018 No results found for: BNP, TSH, CRP No results found for: TOTEPI CARDIAC PROCEDURES/IMAGING Last angiogram/PCI: 10/02/2018: ([facility]) : The vessel coronary artery [...] LAD h severe 90% stenosis and mild di ffuse disease in the rest of the LAD system.Left CX:large caliber dominant vessel gives larg e OM branch and large circumflex proper, mild diffuse disease in L CX system. OM branch has 30%-40% mid segment stenosis, unchanged from previous angiogram.RCA: small nondominant vess el w/ severe 70% stenosis in the mid segment, again unchanged from previous angiogram and a gain the vessel is small and caliber. Angiogram : 07/10/2011: Left main OK, 30% mid-LAD, LCx luminal irreg, 40% prox-OM1, 75-80% qco-eqf-pnyylrau RCA. LVEF 55%. Last Stress test: 05/27/2018 ([facility]): 2-day Lexiscan MPI, moderate size with mildl y reversible defect consistent with inferior ischemia, LVEF 46%. VASCULAR TESTING AND PROCEDURES-none PACER Implant: 01/13/2016: Generator:dual-chamber pacemaker, Medtronic. Model number is [id number], s erial number [id number]. RV LEAD: model number is [id number], 58 cm, Medtronic, implanted in th e right ventricular septum.RA LEAD: model number [id number], length 52 cm, Medtronic, implanted in the [...] than 100 bpm for 6 hours during AT/AF.100% AT/AF programmed VVIR.Ventricular high rate episodes:12 SVT episodes- Afib w/RVR. 2 Fast A&V episodes also Afib w/RVR. ECHO Last Echo: 08/18/2015 ([facility]): TDS, A fib, LVEDd 65mm, LVEF 45-50%, [...] 15, hematocrit 44, platelets 308 Labs: 06/18/2018:( [facility]) CMP: Sodium 138, potassium 3.9, [...] 9, hemoglobin 15, hematocrit 43.8, platelets 310 Addendum: Labs: 11/28/2018: Lipids: ( atorvastatin 20 mg) cholesterol 122, triglycerides 144 , HDL 33.7, LDL 60. CMP: Sodium 142, potassium 3.8, chloride 103, glucose 91, BUN 9, creati nine 0.84, GFR 68, AST 14, ALT 14, alk phos 93, total bili 0.5, albumin 3.8. Hemoglobin A1c 8.6 (200). Digoxin 0.27. CBC: WBC 9, RBC 4.78, hemoglobin 14.2, hematocrit 41.9, platelet s 299 ASSESSMENT & PLAN: She was here for her 6-week follow-up on her response to hydralazine twice daily, as wel l as her lab results. She has problems as detailed below. Unfortunately she never received an updated supply of her hydralazine, so she has only t wice daily for 1 month, but did not contact me to let me know to order her prescription from a local pharmacy. She also did not complete the labs that I had ordered for her. She has been attending cardiac rehab, and reports that it is going well, and feels that she is making good progress, and she has completed about 9 of 18 sessions. She is still continuing to smoke, and about 6 cigarettes/day, but her heart rate and blo od pressure are better controlled today. I have ordered hydralazine 25 mg twice daily from a local pharmacy so that she can add s tart taking this again, and I also reordered her updated CBC, CMP, lipid panel, A1c, and dig oxin level . I have requested she get her labs performed tomorrow, so that she does not for get again, and copies be sent to her PCP, Dr. Driver. I may also add her torsemide back in future for 3 times per week, but today I made no other changes to cardiac medications. , and she should continue torsemide 40 mg prn for flui d overload, Xarelto 20 mg daily for stroke prevention, lisinopril 40 mg daily , diltiazem 36 0 mg daily for atrial fib and heart rate control, digoxin .125 mg for rate control , Plavix 75 mg daily for stent for one year ( until 10/03/2019), ASA 81 mg for 3 months until 01/03/20 19, then stop until 09/2019 when will replace Plavix, atorvastatin 20 mg qhs for hyperlipidem ia , and carvedilol 25 mg BID for heart failure. I have also strongly encouraged her to quit smoking, and supported her positive lifestyle changes with weight loss and exercise . I will see her back January 12, and she will follow-up with Dr. Briscoe on January 30. 1. Coronary artery disease of [place] artery [place] heart with stable angina pectoris (HC C) 2. Chronic combined systolic and diastolic congestive heart failure, NYHA class 3 (HCC) 3. Pacemaker 4. Chronic atrial fibrillation (HCC) 5. S/P primary angioplasty with coronary stent 6. Mixed dyslipidemia 7. Essential hypertension 8. Obstructive sleep apnea 9. Type 2 diabetes mellitus without complication, with long-term current use of insulin (HC C) 10. Chronic anticoagulation 11. Encounter for monitoring digoxin therapy 12. Screening for deficiency anemia Orders Placed This Encounter Procedures Comprehensive Metabolic Panel Lipid Panel CBC with Differential Hemoglobin A1C Digoxin Level The following portions of the patient's history were personally reviewed by me and updated as appropriate: EKG tracings, other specialty provider and PCP notes,any Hospital admission and discharge summaries, any ER records , current and previous cardiac testing and procedure reports and d beau, medication bottles brought to visit today personally reviewed by me. Allergies, current medications.labs Family history, past medical history, past social history, past surgical history. Problem list. Katerina FRANKS [facility] Cardiology 11/27/2018 documente d in this encounter Plan of Treatment +--------+ + + + + | Date | Type | Specialty | Care Team | Description | +--------+ + + + + | 01/12/ | Office | Cardiology | Katie Bee | | | 2018 | Visit | | [address] | | | | | | [address] | | | | | | [place] [address] | | | | | | [phone] | | | | | | | | +--------+ + + + + | 01/28/ | Office | Cardiology | Juan Lopezchristianne, | | | 2018 | Visit | | [address] | | | | | | [place] | | | | | | [address] | | | | | | | | +--------+ + + + + | 03/11/ | Procedure | Cardiology | | | | 2018 | visit | | | | +--------+ + + + + + +--------+ + + | Name | Priori | Associated Diagnoses | Order Schedule | | | ty | | | + +--------+ + + | Comprehensive Metabolic Panel | Routin | Mixed dyslipidemia | Expected: | | | e | Type 2 diabetes | 11/27/2018, Expires: | | | | mellitus without | 11/28/2019 | | | | complication, with | | | | | long-term current | | | | | use of insulin (HCC) | | + +--------+ + + | Lipid Panel | Routin | Mixed dyslipidemia | Expected: | | | e | | 11/27/2018, Expires: | | | | | 11/28/2019 | + +--------+ + + | CBC with Differential | Routin | Chronic | Expected: | | | e | anticoagulation | 11/27/2018, Expires: | | | | Screening for | 11/28/2019 | | | | deficiency anemia | | + +--------+ + + | Hemoglobin A1C | Routin | Type 2 diabetes | Expected: | | | e | mellitus without | 11/27/2018, Expires: | | | | complication, with | 11/28/2019 | | | | long-term current | | | | | use of insulin (HCC) | | + +--------+ + + | Digoxin Level | Routin | Encounter for | Expected: | | | e | monitoring digoxin | 11/27/2018, Expires: | | | | therapy | 11/28/2019 | + +--------+ + + documented as of this encounter Visit Diagnoses + + | Diagnosis | + + | Coronary artery disease of [place] artery of [place] heart with stable angina pectoris | | (HCC) - Primary | + + | Chronic combined systolic and diastolic congestive heart failure, NYHA class 3 (HCC) | + + | Pacemaker Cardiac pacemaker in situ | + + | Chronic atrial fibrillation Atrial fibrillation | + + | S/P primary angioplasty with coronary stent Postsurgical percutaneous transluminal | | coronary angioplasty status | + + | Mixed dyslipidemia Mixed hyperlipidemia | + + | Essential hypertension Unspecified essential hypertension | + + | Obstructive sleep apnea Obstructive sleep apnea (adult) (pediatric) | + + | Type 2 diabetes mellitus without complication, with long-term current use of insulin | | (HCC) | + + | Chronic anticoagulation Encounter for long-term (current) use of anticoagulants | + + | Encounter for monitoring digoxin therapy Encounter for therapeutic drug monitoring | + + | Screening for deficiency anemia Screening for other and unspecified deficiency anemia | + + documented in this encounter
--- OUTSIDE RECORDS SUMMARY | ~2019-01-10 | XMS | Encounter Summary ---
Demographics + + + | Address | [address] | | | [place] [address] | + + + | Home Phone | | + + + | Preferred Language | Unknown | + + + | Marital Status | | + + + | Sikhism Affiliation | 1013 | + + + | Race | Unknown | + + + | Ethnic Group | Unknown | + + + Author + + + | Author | [facility] | | | and [place] | + + + | Organization | [facility] | | | [...] Team Providers + +------+ + | Care Powertrain Design Engineer Name | Role | Phone | + [...] + + | 11/27/ | Office | [facility] | Katie Bee | Coronary artery | | 2019 | Visit | CARDIOLOGY MAXIMO | [address] | disease of elem | | | | [address] | [address] | artery of elem | | | | [address] | [place] [address] | heart with stable | | | | [place] | [phone] | angina pectoris | | | | [address] | | ([facility]) (Primary Dx); | | | | [phone] | | 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 | | | | | | diastolic congestive | | | | | | heart failure, NYHA | | | | | | class 3 ([facility]); | | | | | | Pacemaker; Chronic | | | | | | atrial fibrillation | | | | | | ([facility]); S/P primary | | | | | [...] you fasting labs to be done at [facility] Tomorrow I also ordered you Hydralazine 25 mg BID from [facility] [place] See me back in 6 weeks 15:5 [...] of Dr. 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 On that visit I strongly encouraged her [...] 4000 steps. She has been working on Biogazelle w eight with portion control, and has [...] Obstructive sleep apnea on CPAP since 2003, [place]. Pre vious shortness of breath resolved [...] Walking 4000 steps and tolerates. Lives in [place] . 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 Outpatient Medications [...] for: TOTEPI CARDIAC PROCEDURES/IMAGING Last angiogram/PCI: 10/02/2018: ([facility]) : The vessel coronary artery disease with [...] mid-LAD, LCx luminal irreg, 40% prox-OM1, 75-80% mwy-btg-cylqzyrq RCA. LVEF 55%. Last Stress test: 05/27/2018 ([facility]): 2-day Lexiscan MPI, moderate size with mildl y reversible defect consistent with inferior ischemia, LVEF 46%. VASCULAR TESTING AND PROCEDURES-none PACER Implant: 01/13/2016: Generator:dual-chamber pacemaker, Medtronic. Model number is [id number], s erial number [id number]. RV LEAD: model number is [id number], 58 cm, Medtronic, implanted in th e right ventricular septum.RA LEAD: model number [id number], length 52 cm, Medtronic, implanted in the [...] 15, hematocrit 44, platelets 308 Labs: 06/18/2018:( [facility]) CMP: Sodium 138, potassium 3.9, chloride [...] January 30. 1. Coronary artery disease of [place] artery of [place] heart with stable angina pectoris (HC C) [...] past surgical history. Problem list. Katerina FRANKS [facility] Cardiology 11/27/2018 documente d in this [...] | | | | | [place] [address] | | | | | | [phone] | | | | | | | | +--------+ + + + + | 01/28/ | Office | Cardiology | Juan Lopezchristianne, | | | 2018 | Visit | | MD [address] | | | | | | [place] | | | | | | [address] | | | | | | | [...] + + | Coronary artery disease of elem artery of elem heart with stable angina pectoris | | [...]
--- OUTSIDE RECORDS SUMMARY | ~2019-01-10 | XMS | Clinical Summary ---
Demographics + + + | Address | [address] | | | [place] [address] | + + + | Home Phone | | + + + | Preferred Language | Unknown | + + + | Marital Status | | + + + | Hindu Affiliation | 1013 | + + + | Race | Unknown | + + + | Ethnic Group | Unknown | + + + Author + + + | Author | [facility] | | | and [place] | + + + | Organization | [facility] | | | [...] Team Providers + +------+ + | Care Safety Professional Name | Role | Phone | + [...] + + + + + + | Piciluog-Etkauapnt-I | Other (See Comments) | Medium | [...] + + + | Overview: angiogram/PCI: 10/02/2018: ([facility]) : Three vessel | | coronary artery disease with severe disease to the proximal LAD, | | and stable disease to the RCA and left circumflex. Angioplasty | | of proximal LAD with KARTIK Synergy 2.5 x 32 mm. Angioplasty for the | | mid RCA with KARTIK Resolute Retsof 2.0. | + + + + + | Coronary artery disease of [place] artery of [place] heart with | 10/06/2018 | | stable [...] | | [address] | disease of [place] | | | | | | artery of [place] | | | | | | heart with stable | | | | | | angina pectoris | | | | | | ([facility]) (Primary Dx); | | | | | | 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 | | | | | | diastolic congestive | | | | | | heart failure, NYHA | | | | | | class 3 ([facility]); | | | | | | Pacemaker; Chronic | | | | | | atrial fibrillation | | | | | | ([facility]); S/P primary | | | | | [...] | | | | | | [place] [address] | | | | | | [phone] | | | | | | | | +--------+ + + + + | 01/28/ | Office | Cardiology | Dale Lopez, | | | 2018 | Visit | | MD [address] | | | | | | [place] | | | | | | [address] | | | | | | | [...] +-------+--------+ +--------+-------+---------+------+ | BCBS | BCBS | [id number] | 03/18/19 | | | PPO | [...] Chandrika | al/Fam | | 1955 | [phone] | [place] | | | dinesh | | | [address] (Home) | [address] | + +--------+ +--------+ + + Advance Directives Patient has advance care planning documents on file. For more information, please contact:[facility] [place] [address]
--- OUTSIDE RECORDS SUMMARY | ~2019-01-10 | XMS | Encounter Summary ---
Demographics + + + | Address | [address] | | | [place] [address] | + + + | Home Phone | | + + + | Preferred Language | Unknown | + + + | Marital Status | | + + + | Temple Affiliation | 1013 | + + + | Race | Unknown | + + + | Ethnic Group | Unknown | + + + Author + + + | Author | [facility] (Historical as of | | | 11-01-18) | + + + | Organization | [facility] (Historical as of | | | 11-01-18) [...] Providers + +------+ + | Care Home Care Specialist Name | Role | Phone | + +------+ + | Kris Driver MD | PCP | | + +------+ + Reason for Visit +--------+ + | Reason | Comments | +--------+ + | Other | [facility] Referral (not co-signed) | +--------+ + Encounter Details +--------+ + + + + | Date | Type | Department | Care Team | Description | +--------+ + + + + | 10/20/ | Documentati | [facility] | Jeannine Reed MA | Other ([facility] | | 2019 | on Only | Cardiology Jossie | | Cardiac Rehab | | | | [address] | | Referral (not | | | | [address] | | co-signed)) | | | | [place] [address] | | | | | | [phone] | | | +--------+ + + + [...] [place], | | | | | | [place] [address] | | | | | | [phone] | | | | | | | | +--------+ + + + + | 03/11/ | Documentati | Cardiology | | | 2018 | on Only | | | | +--------+ + + + + as of this encounter Visit Diagnoses Not on filein this encounter
--- OUTSIDE RECORDS SUMMARY | ~2019-01-10 | XMS | Clinical Summary ---
Demographics + + + | Address | [address] | | | [place] [address] | + + + | Home Phone | | + + + | Preferred Language | Unknown | + + + | Marital Status | | + + + | Rastafarian Affiliation | 1013 | + + + | Race | Unknown | + + + | Ethnic Group | Unknown | + + + Author + + + | Author | [facility] (Historical as of | | | 11-01-18) | + + + | Organization | [facility] (Historical as of | | | 11-01-18) [...] Team Providers + +------+ + | Care Report Clerk Name | Role | Phone | [...] + + + + + + | Gutmcgnm-Tdmjcbjxn-G | Other (See Comments) | Medium | [...] | | | | e | | (XAPUKHF-[id number] | | | | | | | [...] + + + | Overview: angiogram/PCI: 10/02/2018: ([facility]) : Three vessel | | [...] + + | Coronary artery disease of [place] artery of [place] heart with | 10/06/2018 | | [...] luminal irreg, 40% prox-OM1, 75-80% | | ayp-jtg-ynouuppm RCA. LVEF 55%.Last Echo, 08/18/2015 (St | [...] | | GOLDEN Lee | disease of [place] | | | | | | artery of [place] | | | | | | heart with stable | | | | | | angina pectoris | | | | | | ([facility]) (Primary Dx); [...] | | Jeannine Reed, REX | Elisabeth ([place] | | 2018 | on Only | [...] [place], | | | | | | [place] [address] | | | | | | [phone] | | | | | | | [...] on | | | | | | [phone] | | file) | Manage | | [...] on | | | | | | [phone] | | file) | Manage | | [...] ry | SCIENTIFIC | | 2020 | /[id number] | | Lane Zarco MD | | | LAURA - BSCI | | | [phone] | + +--------+--------+ +--------+--------+--------+ | Resolute | Stent | Shetty | [employer] - | | 12/29/ | / | | Oynx-10/02/2018Implanted: Qty: | | ry | MEDT | | 2019 | /[id number] | | 1 on 10/02/2018 by [place], | | | | | | [phone] | | MD Lane | | | [...] e | 10:07 AM | disease of [place] | procedure are in the | | | | PDT | artery of [place] | results section. | | | [...] + + + + | Calculated R [place] | -53 | degrees | [facility] | + + + + + | Calculated T [place] | 109 | degrees | [facility] | + + + + + | Diagnosis | Please refer to | | [facility] | | | Providers office visit | | | | | note for Providers | | | | | Interpretation.Confirmed | | | | | by [facility] [place] Read Only, | | | | | [facility] ([id number]), | | | | | food editor Carlos A Zafar | | | | | ([id number]) on 10/16/2018 | | | | | 10:40:46 AM | | | + + + + + + + + + + | Performing | Address | City/State/Zipcode | Phone Number | | Organization | | | | + + + + + | [facility] | [address] | [place] [address] | | + + + + + from Last 3 Months Insurance +---------+--------+ +------+-------+ + | Payer | Benefi | Subscriber | Type | Phone | Address | | | t Plan | ID | | | | | | / | | | | | | | Group | | | | | +---------+--------+ +------+-------+ + | PREMERA | PREMER | [id number] | | | [address] [address] | | | A BLUE | 8 | | | [place], [place] | | | CARD | | | | [phone] | +---------+--------+ +------+-------+ + + +--------+ +--------+ [...] ALYSSA | al/Fam | | 5 | [phone] | [place] | | | dinesh | | | [phone] | [phone] | + +--------+ +--------+ + +
--- OUTSIDE RECORDS SUMMARY | ~2019-01-10 | XMS | Encounter Summary ---
Demographics + + + | Address | [address] | | | [place] [address] | + + + | Home Phone | | + + + | Preferred Language | Unknown | + + + | Marital Status | | + + + | Episcopal Affiliation | 1013 | + + + | Race | Unknown | + + + | Ethnic Group | Unknown | + + + Author + + + | Author | [facility] | | | and [place] | + + + | Organization | [facility] | | | [...] Team Providers + +------+ + | Care Tanning Wheel Operator Name | Role | Phone | + +------+ + | Kris Driver | PCP | | | MD | | | + +------+ + Encounter Details +--------+ + + + + | Date | Type | Department | Care Team | Description | +--------+ + + + + | 12/04/ | Documentati | [facility] | Katie Bee | | | 2019 | on | CARDIOLOGY MAXIMO | JANESSA [address] | | | | | [address] | [address] | | | | | [address] | [place] [address] | | | | | [place] | [phone] | | | | | [address] | | | | | | [phone] | | | +--------+ + + + [...] | | | | | [place] [address] | | | | | | [phone] | | | | | | | | +--------+ + + + + | 01/28/ | Office | Cardiology | Dale Lopez, | | | 2018 | Visit | | MD Colby SEWELL | | | | | | [address] [place] | | | | | | [address] | | | | | | | | +--------+ + + + + | 03/11/ | Procedure | Cardiology | | | | 2018 | visit | | | | +--------+ + + + + documented as of this encounter Visit Diagnoses Not on filedocumented in this encounter
[2019-01-10] MEDS ORDERED: CARVEDILOL25 MG PO (22:21)
[2019-01-10] MEDS ORDERED: PLAVIX75 MG PO (22:21)
[2019-01-10] MEDS ORDERED: HYDRALAZINE HCL25 MG PO (22:23)
[2019-01-10] MEDS ORDERED: LEVAQUIN750 MG PO (23:27)
[2019-01-10] MEDS ORDERED: ALBUTEROL2.5 MG/3 M INH (23:27)
--- NOTE | 2019-01-11 08:04 | EKG ---
[facility] [address] [facility] [place] [address] Signed Atrial fibrillation Left anterior fascicular block Minimal voltage criteria for LVH, may be normal variant ST \T\ T wave abnormality, consider lateral ischemia Abnormal ECG When compared with ECG of 21-MAR-2018 02:00, Vent. rate has decreased BY [address] no longer depressed in Lateral leads Confirmed by AMADOR COVARRUBIAS MD ([id number]) on 01/11/2019 8:03:55 AM Electronically Signed By: AMADOR COVARRUBIAS MD 01/11/19 0804 PATIENT NAME: RANDALL BATRES Electrocardiogram DATE OF : 55 PHYSICIAN: AMADOR COVARRUBIAS MD REPORT #: [id number] REPORT IS CONFIDENTIAL AND NOT TO BE RELEASED WITHOUT AUTHORIZATION
== END 2019-01-10 23:50 | disposition home or self-care (01) ==
LOC: ED 22:02
DX: J18.9 Pneumonia, unspecified organism (principal); E11.9 Type 2 diabetes mellitus without complications; I11.0 Hypertensive heart disease with heart failure; I50.9 Heart failure, unspecified; I48.91 Unspecified atrial fibrillation; F17.200 Nicotine dependence, unspecified, uncomplicated; Z87.01 Personal history of pneumonia (recurrent); Z88.0 Allergy status to penicillin; Z88.1 Allergy status to other antibiotic agents; Z88.2 Allergy status to sulfonamides; Z91.048 Other nonmedicinal substance allergy status; Z88.5 Allergy status to narcotic agent; Z88.8 Allergy status to other drugs, medicaments and biological substances; Z79.899 Other long term (current) drug therapy; Z79.4 Long term (current) use of insulin
CPT/HCPCS: 71046; 80053; 80162; 83735; 83880; 84484; 85025; 85379; 85610; 93005; 93010; 94640; 99285-25

== ENCOUNTER 2020-08-19 19:39 | Inpatient (IN) | payer MEDICARE ==
[~2020-08-19] VITALS: Ht 170.2 cm; Wt 144.0 kg
[~2020-08-19 19:39] MED LIST changes: +ALBUTEROL2.5 MG/3 M INH; +ALDACTONE25 MG PO; -CALCIUM + D3 E1 EACH PO; +CALCIUM 600 +1 EAC4 PO; +CARVEDILOL25 MG PO; +HYDRALAZINE HCL25 MG PO; +HYDRALAZINE HCL50 MG PO; +LEVAQUIN750 MG PO; +LISINOPRIL20 MG PO; +NOVOLIN 70100 UNIT/1 SUB-Q; +PLAVIX75 MG PO; +WARFARIN SODIUM5 MG PO
--- NOTE | 2020-08-19 23:05 | NUR ---
RECEIVED REPORT FROM DEMETRIUS KEARNEY ED.
[2020-08-19] MEDS ORDERED: BAYER CHEWABLE81 MG PO (23:43)
--- NOTE | 2020-08-19 23:45 | NUR ---
@8330 PT ADMITTED TO ROOM 117 FROM ED, ACCOMPAINED BY HER DAUGHTER DELGADO. 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 A/O, SELF TRANSFERED FROM STRETCHER TO BATHROOM WITH NO NOTICABLE DEFICITS.
--- NOTE | 2020-08-20 01:00 | NUR ---
CALL LIGHT ANSWERED, pt UP SBA TO VOID. 400MLS NOTED AND EMPTIED. pt STEADY ON FEET AND RETURNED TO BED. ALONZO NOBLES IN ROOM AND CONTACT INFORMATION WRITTEN ON BOARD, ALONZO NOBLES WANTS TO BE NOTIFIED IMMEDIATELY IF CHANGES IN HER MOTHER'S HEALTH OCCURS HER FATHER HAS SOME MEMORY ISSUES AT HOME AND CANNOT ASSIST WITH MEDICAL DECISIONS/QUESTIONS. PRIMARY RN REHAN AWARE OF INFORMATION ABOVE. CALL LIGHT IN REACH.
--- NOTE | 2020-08-20 01:23 | NUR ---
REQUESTED TYLENOL FOR HEADACHE, AND RIGHT NECK DISCOMFORT, BOTH OF WHICH ARE CHRONIC PER PT. SITTING UP ON BED, TALKING TO HER DAUGHTER.
--- NOTE | 2020-08-20 02:13 | NUR ---
PT TO BATHROOM, SBA, INDEPENDENT IN AND OUT OF BED. DENIES DIZZINESS, DENIES WEAKNESS IN LEGS, HANDS. ABLE TO SMILE EVENLY.
--- NOTE | 2020-08-20 04:30 | NUR ---
ASSESSMENT COMPLETE. CONTINUES TO REPORT LEFT FOOT "MORE NUMB" THAN HER NORMAL STATE. AT BASELINE FOOT HAS NUMBNESS AND TINGLING, HOWEVER PT FEELS THAT IT FEELS "HEAVIER". ABLE TO BEAR WEIGHT AND AND AMBULATE WITHOUT DIFFICULTIES. LEFT SIDE CHEEK CONTINUES TO HAVE TINGLING, SPEECH IS CLEAR, NO OTHER DEFICIT'S NOTED.
[2020-08-20] MEDS ORDERED: DULCOLAX STOOL100 M1 PO (05:36)
--- NOTE | 2020-08-20 06:04 | NUR ---
IN TO ASSIST RN WITH TURNING PT, SOLOMON CARE DONE AND BAG EMPTIED, SCDS AND HEEL PROTECTORS IN PLACE, NO FURTHER NEEDS AT THIS TIME
--- NOTE | 2020-08-20 06:39 | NUR ---
PT ADMITTED TO ROOM 117 FROM ED. TIA VS CVA. NO DEFICITS NOTED WITH THE EXCEPTION OF CONTINUED NUMBNESS WITH LEFT FOOT. WORSE THAN HER NORMAL NUMBNESS AND TINGLING. LEFT FACIAL TINGLING CONTINUES WITH NO INCREASE NOR ANY DECREASE IN THIS. RA, SATS 100. SALINE LOCKED. USES HOME CPAP. 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 SPEECH CLEAR.
--- NOTE | 2020-08-20 07:00 | NUR ---
TOOK REPORT ON PT. PT IN ROOM SITTING IN CHAIR. DENIES NEEDS AT THIS TIME.
--- NOTE | 2020-08-20 07:35 | EKG ---
[facility] [address] [facility] [place] [address] Signed Undetermined rhythm Left anterior fascicular block Left ventricular hypertrophy with repolarization abnormality Abnormal ECG When compared with ECG of 10-JAN-2019 22:12, Confirmed by AMADOR COVARRUBIAS MD ([id number]) on 08/20/2020 7:35:50 AM Electronically Signed By: AMADOR COVARRUBIAS MD 08/20/20 0735 PATIENT NAME: GISELRANDALL Electrocardiogram DATE OF : 55 PHYSICIAN: AMADOR COVARRUBIAS MD REPORT #: [id number] REPORT IS CONFIDENTIAL AND NOT TO BE RELEASED WITHOUT AUTHORIZATION
--- NOTE | 2020-08-20 07:36 | EKG ---
[facility] [address] [facility] [place] [address] Signed Atrial fibrillation Left anterior fascicular block Moderate voltage criteria for LVH, may be normal variant ST \T\ T wave abnormality, consider lateral ischemia Abnormal ECG When compared with ECG of 19-AUG-2020 20:10, (Unconfirmed) Confirmed by AMADOR COVARRUBIAS MD ([id number]) on 08/20/2020 7:36:15 AM Electronically Signed By: AMADOR COVARRUBIAS MD 08/20/20 0736 PATIENT NAME: RANDALL BATRES Electrocardiogram DATE OF : 55 PHYSICIAN: AMADOR COVARRUBIAS MD REPORT #: [id number] REPORT IS CONFIDENTIAL AND NOT TO BE RELEASED WITHOUT AUTHORIZATION
[2020-08-20] MEDS ORDERED: ZESTRIL20 MG PO ×2 (08:57→09:14)
--- NOTE | 2020-08-20 09:00 | NUR ---
PT IN ROOM WATCHING TV. DENIES NEEDS AT THIS TIME. CALL LIGHT IN REACH.
[2020-08-20] MEDS ORDERED: VITAMIN D3125 MC2 PO (09:13)
[2020-08-20] MEDS ORDERED: WOMEN'S DAILY1 EACH PO (09:13)
--- NOTE | 2020-08-20 10:18 | NUR ---
PT SITTING ON EDGE OF BED, AMBULATED TO BATHROOM, VOIDED AND HAD LOOSE BM. PT ON ROOM AIR, LUNG SOUNDS CLEAR. VSS. PT RATING PAIN 5/10 TO HIPS AND NECK. PT CONTINUES TO REPORT DECREASED SENSATION/NUMBNESS TO LEFT FACE, ARM AND LEG. STRENGTH EQUAL IN ALL EXTREMITIES, FACE SYMMETRIC. PT TOLERATED BREAKFAST, DNEIES NAUSEA. PT WITH TRACE EDEMA IN BLE. IV SALINE LOCKED. PT DENIES OTHER NEEDS AT THIS TIME, DISCUSSED PLAN OF CARE.
--- NOTE | 2020-08-20 11:00 | NUR ---
PT IN ROOM TAKING A NAP. BED RAILS UP. CALL LIGHT IN REACH.
--- NOTE | 2020-08-20 14:44 | NUR ---
PT IN ROOM TAKING A NAP. CALL LIGHT IN REACH. DENIES NEEDS AT THIS TIME.
--- NOTE | 2020-08-20 18:30 | NUR ---
PT SITTING IN CHAIR WATCHING TV. DENIES NEEDS AT THIS TIME.
--- NOTE | 2020-08-20 19:20 | NUR ---
RECEIVED REPORT FROM DEMETRIUS FARRAR. pt RESTING IN BED WITH AT BEDSIDE. WARM BLANKETS PROVIDED. CALL LIGHT WITHIN REACH.
--- NOTE | 2020-08-20 20:27 | NUR ---
pt REPORTED THAT SHE HAD THREE RIBS, SOME PASTA SALAD AND DIET SODA FOR DINNER. pt EXHIBITS KNOWLEDGE ON FOOD CHOICES AND 60GRAM CARB/2 GRAM SODIUM DIET. REPORTS THE LOSS OF A FRIEND RECENTLY AND THAT THIS FOOD WAS FROM THE FAMILY BBQ. AT BEDSIDE. DISCUSSED FOOD OPTIONS. MEDICATIONS GIVEN (SEE MAR). pt UP TO VOID. INDEPENDENT. WILL CALL WHEN DONE. CALL LIGHT WITHIN REACH.
--- NOTE | 2020-08-20 20:43 | NUR ---
ASSESSMENT DONE. pt HAD A SMALL BM AND VOID. NO WEAKNESS NOTED. LEFT SIDED NUMBNESS AND TINGLING PER pt. REPORTED 5/10 PAIN IN RIGHT NECK AND LEFT HEAD. PRN GIVEN (SEE MAR). pt SITTING ON SIDE OF BED. CALL LIGHT WITHIN REACH.
--- NOTE | 2020-08-20 21:00 | NUR ---
pt REQUESTED THAT IV BE DC'd IT IS PAINFUL, TIP INTACT. PRESSURE APPLIED TO SITE. pt REPORTED SPLINT ON LEFT GREAT TOE WAS ADJUSTED WHICH REDUCED THE PAIN. THE SPLINT IS FOR A BROKEN TOE FOLLOWED BY DR HALLMAN.
--- NOTE | 2020-08-20 23:43 | NUR ---
IN TO INSERT NEW IV. pt SITTING ON SIDE OF BED PLAYING GAME WITH DAUGHTER. IV STARTED WITHOUT ISSUE. SL. DAUGHTER REMAINS AT BEDSIDE. NO REQUESTS AT THIS TIME. CALL LIGHT WITHIN REACH.
--- NOTE | 2020-08-21 00:53 | NUR ---
LIGHTS OFF. pt RESTING IN BED. NO FURTHER REQUESTS AT THIS TIME. CALL LIGHT WITHIN REACH.
--- NOTE | 2020-08-21 04:15 | NUR ---
ROUNDED ON pt. SITTING ON SIDE OF BED ABOUT TO GO TO THE BATHROOM. HAT EMPTIED. ASSESSMENT DONE. pt REPORTS SLIGHT IMPROVEMENT IN NUMBNESS IN LEFT FINGER TIPS. NO OTHER CHANGES NOTED. CALL LIGHT WITHIN REACH.
--- NOTE | 2020-08-21 06:17 | NUR ---
IN TO DO VITALS. pt RESTING IN BED ON CPAP. RECENT VOID. DAILY WEIGHT DONE. VITALS DONE. BP HIGH. pt STATES THAT HER EVENING MEDICATIONS HAVE "PROBABLY WORN OFF" BECAUSE SHE TAKES THEM MUCH LATER AT HOME. NO REQUESTS AT THIS TIME. CALL LIGHT WITHIN REACH. pt RESTING IN BED.
--- NOTE | 2020-08-21 07:04 | NUR ---
NOTIFIED OF HIGH BP. ORDERED MORNING MEDS BE GIVEN NOW. DONE.
--- NOTE | 2020-08-21 07:12 | NUR ---
TOOK REPORT FROM ALICIA ROMO. PT IN ROOM LAYING IN BED. DENIES NEEDS AT THIS TIME.
--- NOTE | 2020-08-21 11:04 | NUR ---
PT LAYING IN BED TAKING A NAP. CALL LIGHT IN REACH. BED RAILS UP FOR SAFTEY.
[2020-08-21] MEDS ORDERED: ATORVASTATIN CA80 MG PO (12:20)
[2020-08-21] MEDS ORDERED: LISINOPRIL40 MG PO (12:21)
[2020-08-21] MEDS ORDERED: ASPIRIN EC325 MG PO (12:22)
[2020-08-21] MEDS ORDERED: NITROGLYCERIN0.4 MG SL (12:23)
[2020-08-21] MEDS ORDERED: NICORETTE4 M1 BUCCAL (12:25)
== END 2020-08-21 13:17 | disposition home or self-care (01) | DRG 65 ==
LOC: ED 19:39 → MS 22:44
PROVIDERS: ADMIT Internal Medicine; ATTEND Internal Medicine
DX: I63.9 Cerebral infarction, unspecified (principal); I50.32 Chronic diastolic (congestive) heart failure; Z68.42 Body mass index [BMI] 45.0-49.9, adult; Z20.822 Contact with and (suspected) exposure to COVID-19; R20.1 Hypoesthesia of skin; I48.91 Unspecified atrial fibrillation; R20.2 Paresthesia of skin; F17.200 Nicotine dependence, unspecified, uncomplicated; I11.0 Hypertensive heart disease with heart failure; E11.9 Type 2 diabetes mellitus without complications; M79.7 Fibromyalgia; E78.5 Hyperlipidemia, unspecified; E66.01 Morbid (severe) obesity due to excess calories; G47.33 Obstructive sleep apnea (adult) (pediatric); I65.22 Occlusion and stenosis of left carotid artery; I25.118 Atherosclerotic heart disease of native coronary artery with other forms of angina pectoris; Z95.0 Presence of cardiac pacemaker; Z79.01 Long term (current) use of anticoagulants; Z79.82 Long term (current) use of aspirin; Z79.4 Long term (current) use of insulin; Z79.899 Other long term (current) drug therapy; Z88.0 Allergy status to penicillin; Z88.8 Allergy status to other drugs, medicaments and biological substances; Z88.2 Allergy status to sulfonamides; Z88.5 Allergy status to narcotic agent; Z88.1 Allergy status to other antibiotic agents; Z88.3 Allergy status to other anti-infective agents
CPT/HCPCS: 36415; 70450; 70496; 70498; 80048; 80053; 80061; 80162; 83036; 83735; 84100; 84484; 85025; 85610; 85730; 93005; 93010; 97161; 99285-25; C9803; J1815; J3475; Q9967; U0003

== ENCOUNTER 2020-10-03 22:33 | Emergency (ER) | payer MEDICARE ==
[~2020-10-03] VITALS: Ht 172.7 cm; Wt 147.4 kg
[~2020-10-03 22:33] MED LIST changes: +ASPIRIN EC325 MG PO; +ATORVASTATIN CA80 MG PO; +BAYER CHEWABLE81 MG PO; +DULCOLAX STOOL100 M1 PO; +LISINOPRIL40 MG PO; +NICORETTE4 M1 BUCCAL; +NITROGLYCERIN0.4 MG SL; +VITAMIN D3125 MC2 PO; +WOMEN'S DAILY1 EACH PO; +ZESTRIL20 MG PO
[2020-10-03] MEDS ORDERED: LO-DOSE ASPIRIN81 M1 PO (22:52)
[2020-10-03] MEDS ORDERED: DIOVAN160 MG PO (22:54)
[2020-10-04] MEDS ORDERED: PERCOCET 5-3251 EACH PO (01:04)
[2020-10-04] MEDS ORDERED: ULTRA-LIGHT RO1 EACH MISC (01:05)
== END 2020-10-04 01:20 | disposition home or self-care (01) ==
LOC: ED 22:33
DX: S76.012A Strain of muscle, fascia and tendon of left hip, initial encounter (principal); W18.30XA Fall on same level, unspecified, initial encounter; E11.9 Type 2 diabetes mellitus without complications; I11.0 Hypertensive heart disease with heart failure; I50.9 Heart failure, unspecified; I48.91 Unspecified atrial fibrillation; F17.200 Nicotine dependence, unspecified, uncomplicated; Z88.8 Allergy status to other drugs, medicaments and biological substances; Z88.1 Allergy status to other antibiotic agents; Z88.5 Allergy status to narcotic agent; Z88.2 Allergy status to sulfonamides; Z91.040 Latex allergy status; Z79.899 Other long term (current) drug therapy; Z79.4 Long term (current) use of insulin; Z79.82 Long term (current) use of aspirin; Z79.01 Long term (current) use of anticoagulants
CPT/HCPCS: 72192; 73502; 99284-25

== ENCOUNTER 2022-07-26 22:54 | Inpatient (IN) | payer MEDICARE ==
[~2022-07-26] VITALS: Ht 172.7 cm; Wt 135.4 kg
[~2022-07-26 22:54] MED LIST changes: +CLOPIDOGREL75 MG PO; +DIOVAN160 MG PO; +FARXIGA5 MG PO; +FUROSEMIDE20 MG PO; +LEVOFLOXACIN250 MG PO; +LO-DOSE ASPIRIN81 M1 PO; +MIRTAZAPINE15 MG PO; +PIOGLITAZONE HC15 MG PO; +PIOGLITAZONE HC30 MG PO; +ULTRA-LIGHT RO1 EACH MISC; +VALSARTAN320 MG PO; +VITAMIN D3125 MC1 PO; -VITAMIN D3125 MC2 PO
--- OUTSIDE RECORDS SUMMARY | 2022-07-26 23:02 | XMS ---
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 - Visits in 30 Days CARE PROVIDERS JEMMA ESCOBEDO [facility] 01/12/2019-Current PHONE: Unknown ERICK BEGUM [facility] Current PHONE: Unknown Devan has no Care Guidelines for this patient. Gianna VISIT COUNT (12 MO.) [address] TOTAL 3 NOTE: Visits indicate total known visits. ED/UCC VISIT TRACKING (12 MO.) 07/26/2022 22:54 DEE[facility] [place] TYPE: Emergency COMPLAINT: - CHEST PAIN 07/25/2022 09:18 [facility] TYPE: Emergency DIAGNOSES: - Blood In Stool - EMS 07/05/2022 17:06 [facility] [place] TYPE: Emergency COMPLAINT: - BLOOD SUGAR PROBLEM INPATIENT VISIT TRACKING (12 MO.) 07/25/2022 09:18 [facility] OR [facility] TYPE: Intensive Care DIAGNOSES: - Abnormal coagulation profile - Atherosclerotic heart disease of [place] coronary artery without angina pectoris - Hemorrhage of anus and rectum - intermediate accountant (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) use of insulin - Permanent atrial fibrillation - Type 2 diabetes mellitus without complications - Blood In Stool 07/05/2022 21:47 [facility] [place] TYPE: Medical Surgical COMPLAINT: - UTI,SEPSIS DIAGNOSES: - Acquired absence of both cervix and uterus - Acquired absence of both cervix and uterus - Acquired absence of other left toe(s) - Acquired absence of other left toe(s) - Acquired absence of other specified parts of digestive tract - Acquired absence of other specified parts of digestive tract - Acquired absence of right breast and nipple - Acquired absence of right breast and nipple - Acute kidney failure, unspecified - Acute kidney failure, unspecified - Allergy status to narcotic agent - Allergy status to narcotic agent - Allergy status to other antibiotic agents - Allergy status to other antibiotic agents - Allergy status to other drugs, medicaments and biological substances - Allergy status to other drugs, medicaments and biological substances - Allergy status to penicillin - Allergy status to penicillin - Allergy status to sulfonamides - Allergy status to sulfonamides - Atherosclerotic heart disease of [place] coronary artery without angina pectoris - Atherosclerotic heart disease of [place]' coronary artery without angina pectoris - Body mass index [BMI] 45.0-49.9, adult - Body mass index [BMI] 45.0-49.9, adult - Cataract extraction status, left eye - Cataract extraction status, left eye - Cataract extraction status, right eye - Cataract extraction status, right eye - Cellulitis of left lower limb - Cellulitis of left lower limb - Contact with and (suspected) exposure to COVID-19 - Contact with and (suspected) exposure to COVID-19 - Heart failure, unspecified - Heart failure, unspecified - History of uterine scar from previous surgery - History of uterine scar from previous surgery - Hypertensive heart disease with heart failure - Hypertensive heart disease with heart failure - FPC (current) use of anticoagulants - FPC (current) use of anticoagulants - FPC (current) use of insulin - intermediate accountant (current) use of insulin - Morbid (severe) obesity due to excess calories - Morbid (severe) obesity due to excess calories - Nicotine dependence, unspecified, uncomplicated - Nicotine dependence, unspecified, uncomplicated - Other retirement (current) drug therapy - Other watermelon inspector (current) drug therapy - Other nonmedicinal substance allergy status - Other nonmedicinal substance allergy status - Other specified postprocedural states - Other specified postprocedural states - Other streptococcal sepsis - Other streptococcal sepsis - Personal history of transient ischemic attack (TIA), and cerebral infarction without residual deficits - Personal history of transient ischemic attack (TIA), and cerebral infarction without residual deficits - Presence of cardiac pacemaker - Presence of cardiac pacemaker - Presence of coronary angioplasty implant and graft - Presence of coronary angioplasty implant and graft - Sepsis, unspecified organism - Severe sepsis without septic shock - Severe sepsis without septic shock - Type 2 diabetes mellitus without complications - Type 2 diabetes mellitus without complications - Unspecified atrial fibrillation - Unspecified atrial fibrillation - Urinary tract infection, site not specified - Urinary tract infection, site not specified [email or web address]
[2022-07-27] VITALS (10 sets, daily range): BP systolic 128–164; BP diastolic 39–107
[2022-07-27] MEDS ORDERED: NOVOLIN R100 UNIT/1 SUB-Q (08:32)
--- NOTE | 2022-07-27 18:46 | EKG ---
[facility] [address] [facility] [place] [address] Signed Atrial fibrillation with rapid ventricular response Left anterior fascicular block Minimal voltage criteria for LVH, may be normal variant ( R in aVL ) Marked ST abnormality, possible lateral subendocardial injury Abnormal ECG Confirmed by AMADOR COVARRUBIAS MD ([id number]) on 07/27/2022 6:46:41 PM Electronically Signed By: AMADOR COVARRUBIAS MD 07/27/22 1846 PATIENT NAME: RANDALL BATRES Electrocardiogram DATE OF : 55 PHYSICIAN: AMADOR COVARRUBIAS MD REPORT #: [id number] REPORT IS CONFIDENTIAL AND NOT TO BE RELEASED WITHOUT AUTHORIZATION
[2022-07-28] VITALS (7 sets, daily range): BP systolic 125–161; BP diastolic 53–74
--- NOTE | 2022-07-28 11:21 | CONS ---
[facility] [address] [place], [place] [address] Signed DATE OF CONSULTATION: 07/27/2022 REQUESTING PHYSICIAN: Dr. Norris. PROBLEM: Hematochezia. 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 She was traveling to [place] and stopped at the [facility] rest stop two days ago with urge for a bowel movement. She had a copious amount of liquid stool, ultimately found to be bloody. She also had vomiting, which was only watery and without any sign of blood in it. She was taken to the [facility] by EMS Services where she was evaluated and found to have a hemoglobin approximately 7.1 (by her history). She was observed and offered endoscopic evaluation-in a week. Mindful that this was a bit problematic as she lived in [place] and without real opportunities to travel back to [place], for such an evaluation, she preferred to come home. She had no further copious rectal bleeding, but did have lightheadedness, tachycardia, and chest pain and on that basis requested emergency medical transport to [employer] [place] [employer] where she was taken and evaluated by Dr. Vásquez at approximately 11 o'clock last night. It is noted that she is chronically anticoagulated with Coumadin for atrial fibrillation and her INR was greater than 4 while in [place]. She was reversed with vitamin K while hospitalized in [place]. Her evaluation confirmed a low hematocrit of 22.4, for which she was transfused with 2 units of packed red cells. An IV Cardizem bolus and drip was initiated for atrial fibrillation with rapid ventricular response. Troponin levels were found to be elevated, but there was no other evidence of any ischemia or myocardial infarction. Her EKG did show atrial fibrillation with RVR at 136 beats per minute with a left anterior fascicular block, mild left ventricular hypertrophy and ST changes in the lateral leads. MEDICATIONS: Generally have included: 1. Atorvastatin. 2. Tums. 3. Carvedilol. 4. Digoxin. 5. Diltiazem. 6. Lasix. 7. Hydralazine. Electronically Signed By: CARLOS MANUEL DENG MD 07/28/22 1121 PATIENT NAME: RANDALL BATRES CONSULTATION DATE OF : 55 REPORT #: [id number] PHYSICIAN: CARLOS MANUEL DENG MD PCP: ERICK BEGUM MD REPORT IS CONFIDENTIAL AND NOT TO BE RELEASED WITHOUT AUTHORIZATION [facility] [address] [place], [place] [address] Signed 8. Insulin. 9. Nitroglycerin p.r.n. 10. Pioglitazone. 11. Potassium. 12. Spironolactone. 13. Valsartan. 14. Coumadin as previously noted. ALLERGIES: She is considered to have allergy to piperacillin-tazobactam, moxifloxacin, sulfa, hydrocodone, neomycin, and perfumed soap. REVIEW OF SYSTEMS: She currently has no bleeding. She has been initiated on a standard MiraLAX bowel prep and has shown some "old blood." It is noted that she has no abdominal pain, chest pain or dysphagia. She has no chest pain currently, though previously did as noted. She has no shortness of breath. She has no abdominal pain. It is notable that she has had a 30-pound weight loss (unintended) over the past few months. FAMILY HISTORY: Negative for gastric, esophageal or colon cancer. SOCIAL HISTORY: She is . She has grown children. 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 PHYSICAL EXAMINATION: GENERAL: A morbidly obese white woman, who at this time is sitting up and looks completely comfortable. VITAL SIGNS: Pulse is 72, blood pressure 130 systolic, temperature is 98.3, pulse 68, O2 saturation 92% on room air. Trachea is midline. ABDOMEN: Quite markedly obese, but soft. There is no focal tenderness or ascites. EXTREMITIES: Show no clubbing, cyanosis, or edema. LABORATORY STUDIES: Most recent lab studies showed a white count of 7.0, hematocrit 24.3, platelets 239,000. Chem profile with a creatinine of 1.39, glucose 257, magnesium 1.7. Electrolytes otherwise normal. Coag studies show an INR of 1.31, previously 1.19. Toxicology shows digoxin 0.5. ASSESSMENT: Electronically Signed By: CARLOS MANUEL DENG MD 07/28/22 1121 PATIENT NAME: RANDALL BATRES CONSULTATION DATE OF : 55 REPORT #: [id number] PHYSICIAN: CARLOS MANUEL DENG MD PCP: ERICK BEGUM MD REPORT IS CONFIDENTIAL AND NOT TO BE RELEASED WITHOUT AUTHORIZATION [facility] [address] [place] [id number] Signed The patient has had hematochezia, which may have benign or malignant etiology. Clearly, upper endoscopy to assess for peptic disease as well as colonoscopy to assess for a colonic source of her bleeding is appropriate. She will complete her bowel prep including clear liquids up until midnight and we will anticipate upper endoscopy and colonoscopy tomorrow. If there is a problem of recurrent severe bleeding, certainly endoscopic evaluation could be undertaken sooner. Quite obviously, she will need anesthesia support likely with propofol to provide good sedation. The risk of bleeding, infection, and perforation were reviewed with her, she understands and wishes to proceed. MD PATRICIO Melgoza/MODL /[id number] cc: MD Amador Epstein MD Copies: AMADOR NORRIS MD ~ Electronically Signed By: CARLOS MANUEL DENG MD 07/28/22 1121 PATIENT NAME: RANDALL BATRES CONSULTATION DATE OF : 55 REPORT #: [id number] PHYSICIAN: CARLOS MANUEL DENG MD PCP: ERICK BEGUM MD REPORT IS CONFIDENTIAL AND NOT TO BE RELEASED WITHOUT AUTHORIZATION
--- NOTE | 2022-07-29 12:57 | OR ---
[facility] [address] [place], [place] [address] Signed DATE OF OPERATION: 07/28/2022 SURGEON: Carlos Manuel Deng MD PREOPERATIVE DIAGNOSES: 1. Significant hematochezia. 2. Chronic anticoagulation with Coumadin for atrial fibrillation. 3. Morbid obesity. POSTOPERATIVE DIAGNOSES: 1. Antral and duodenal inflammation without sign of ulceration or bleeding. 2. Multiple polyps of colon, nonbleeding. 3. Internal hemorrhoids (extensive, probable source of hematochezia). PROCEDURES: 1. Esophagogastroduodenoscopy with biopsy. 2. Total colonoscopy to cecum with cold snare polypectomy x3 and cold morcellation polypectomy x4. ANESTHESIA: Intravenous sedation, propofol infusion, Maicol Roxy TRUSS MAKER. INDICATIONS: This 67-year-old white woman was admitted by Dr. Norris on July 27, 2022, with significant hematochezia, dropping her hematocrit to 18. She has undergone 2 units of blood transfusion. She is chronically anticoagulated with warfarin, was found to be supratherapeutic in her evaluation of INR. She has undergone a bowel prep and is no longer having any bleeding at this time. Her last colonoscopy was greater than 10 years ago. She was admitted at this time to undergo upper endoscopy and colonoscopy to assess the source of her blood per rectum and anemia. She understands the risk of bleeding, infection, and perforation and wished to proceed. FINDINGS: Upper endoscopy showed duodenitis and antral gastritis and hiatal hernia but no evidence of lesion to account for bleeding. CLOtest was negative. On colonoscopy, the prep was quite good overall. Complete colonoscopy was undertaken of the cecum without question. She had polyps in the right colon, transverse, left, sigmoid and rectum, all of which were excised, but no neoplasm, colitis, or even diverticular changes of any note that would account for the bleeding. Retroflexed view Electronically Signed By: CARLOS MANUEL DENG MD 07/29/22 1257 PATIENT NAME: RANDALL BATRES OPERATIVE REPORT DATE OF : 55 REPORT #: [id number] PHYSICIAN: CARLOS MANUEL DENG MD PCP: ERICK BEGUM MD REPORT IS CONFIDENTIAL AND NOT TO BE RELEASED WITHOUT AUTHORIZATION [facility] [address] [place], [place] [address] Signed confirmed extensive internal hemorrhoids which are the most likely source of her hematochezia. PROCEDURE IN DETAIL: The patient was brought to the endoscopy suite and placed in lateral decubitus position, given lidocaine topical hypopharyngeal anesthesia. She was given intravenous sedation with propofol infusional technique by the waste hand. A bite block was placed. An Olympus video upper endoscope was passed in the hypopharynx. The vocal cords and surrounding soft tissue were normal. Scope was advanced to the esophagus throughout its length it was normal. Scope was passed to the stomach, insufflated with air and rugal folds appeared to be normal. There was no sign of blood or old blood. The antrum had mild chronic inflammatory change. The pylorus was normal. Scope was passed through into the duodenum. Second and third portions were normal. The duodenal bulb had inflammatory changes. No sign of ulceration or neoplasm. Biopsies were taken of the second and bulbar portion. The scope was withdrawn. Biopsies taken of the antrum for both DARLENE and pathologic testing. Retroflexed view showed a hiatal hernia of sorts. The scope was straightened, withdrawn. Biopsies taken of the distal esophagus and ultimately the midesophagus due to some chronic inflammatory change which likely represented reflux-related esophagitis. The scope was further withdrawn. There were no other findings of concern. Plans were then made for colonoscopy. Digital rectal examination showed old gelatinous stool with some amount of old blood. There was no palpable abnormality. An Olympus video colonoscope was passed in the rectum and manipulated throughout the colon ultimately intubating the cecum itself. The ileocecal valve and appendiceal orifice were normal. The scope was withdrawn and in the proximal ascending colon was a small polyp, which was excised with cold snare technique, passed for pathology. Further withdrawal showed additional polyp in the right colon and subsequently in the transverse colon. Further withdrawal showed several small polyps in the sigmoid and rectosigmoid and one in the rectum as well. In aggregate three were excised with cold snare technique, four with cold morcellation technique. Retroflexed view confirmed internal hemorrhoids which were rather extensive and almost certainly the source of her recent bleeding issues. The patient was taken to recovery room in good condition. CONCLUDING DIAGNOSIS: Source of GI bleeding, most likely internal hemorrhoids. PLAN: She will need a short interval colonoscopy as there are likely remaining polyps in the colon that were not excised during the course of this examination. A high-fiber diet and avoidance of over or excessive anticoagulation would be important regarding hemorrhoidal disease. If signs of recurrent hemorrhoidal bleeding, consideration will be made for hemorrhoidectomy or hemorrhoidal banding if not advanced in extent Electronically Signed By: CARLOS MANUEL DENG MD 07/29/22 1257 PATIENT NAME: RANDALL BATRES OPERATIVE REPORT DATE OF : 55 REPORT #: [id number] PHYSICIAN: CARLOS MANUEL DENG MD PCP: ERICK BEGUM MD REPORT IS CONFIDENTIAL AND NOT TO BE RELEASED WITHOUT AUTHORIZATION [facility] [address] [place] [address] Signed anatomically. MD PATRICIO Melgoza/DAY /[id number] cc: MD Dr. Sharon Rivera Copies: AMADOR NORRIS MD ~ Electronically Signed By: CARLOS MANUEL DENG MD 07/29/22 1257 PATIENT NAME: RANDALL BATRES OPERATIVE REPORT DATE OF : 55 REPORT #: [id number] PHYSICIAN: CARLOS MANUEL DENG MD PCP: ERICK BEGUM MD REPORT IS CONFIDENTIAL AND NOT TO BE RELEASED WITHOUT AUTHORIZATION
== END 2022-07-28 17:04 | disposition home or self-care (01) | DRG 394 ==
LOC: ED 22:54 → CCU 07-27 00:45
PROVIDERS: Surgery; ADMIT Internal Medicine; ATTEND Internal Medicine
PROC: 30233N1 Transfusion of Nonautologous Red Blood Cells into Peripheral Vein, Percutaneous Approach (ICD-10-PCS; principal; 2022-07-26)
PROC: 0DB38ZX Excision of Lower Esophagus, Via Natural or Artificial Opening Endoscopic, Diagnostic (ICD-10-PCS; 2022-07-28)
PROC: 0DBF8ZZ Excision of Right Large Intestine, Via Natural or Artificial Opening Endoscopic (ICD-10-PCS; 2022-07-28)
PROC: 0DBL8ZZ Excision of Transverse Colon, Via Natural or Artificial Opening Endoscopic (ICD-10-PCS; 2022-07-28)
PROC: 0DBN8ZZ Excision of Sigmoid Colon, Via Natural or Artificial Opening Endoscopic (ICD-10-PCS; 2022-07-28)
PROC: 0DBP8ZZ Excision of Rectum, Via Natural or Artificial Opening Endoscopic (ICD-10-PCS; 2022-07-28)
PROC: 0DB68ZX Excision of Stomach, Via Natural or Artificial Opening Endoscopic, Diagnostic (ICD-10-PCS; 2022-07-28 09:00)
DX: K64.8 Other hemorrhoids (principal); D62 Acute posthemorrhagic anemia; I48.20 Chronic atrial fibrillation, unspecified; Z68.42 Body mass index [BMI] 45.0-49.9, adult; E11.9 Type 2 diabetes mellitus without complications; K44.9 Diaphragmatic hernia without obstruction or gangrene; E66.01 Morbid (severe) obesity due to excess calories; K29.80 Duodenitis without bleeding; G47.33 Obstructive sleep apnea (adult) (pediatric); K29.70 Gastritis, unspecified, without bleeding; I11.0 Hypertensive heart disease with heart failure; F17.200 Nicotine dependence, unspecified, uncomplicated; I50.9 Heart failure, unspecified; M79.7 Fibromyalgia; Z87.01 Personal history of pneumonia (recurrent); Z86.73 Personal history of transient ischemic attack (TIA), and cerebral infarction without residual deficits; Z90.11 Acquired absence of right breast and nipple; Z98.41 Cataract extraction status, right eye; Z98.42 Cataract extraction status, left eye; Z90.710 Acquired absence of both cervix and uterus; Z98.891 History of uterine scar from previous surgery; Z95.0 Presence of cardiac pacemaker; Z98.890 Other specified postprocedural states; Z89.422 Acquired absence of other left toe(s); Z99.89 Dependence on other enabling machines and devices; Z88.0 Allergy status to penicillin; Z88.2 Allergy status to sulfonamides; Z88.1 Allergy status to other antibiotic agents; Z88.8 Allergy status to other drugs, medicaments and biological substances; Z91.048 Other nonmedicinal substance allergy status; Z79.4 Long term (current) use of insulin; Z79.01 Long term (current) use of anticoagulants; Z79.899 Other long term (current) drug therapy
CPT/HCPCS: 36415; 80048; 80053; 80162; 83735; 84484; 85025; 85610; 85730; 86850; 86900; 86901; 86922; 93005; 93010; A9270; C9113; J1160; J1170; J1815; J2405; J2704; J3475; J3490; J7121; P9016

== ENCOUNTER 2023-11-22 01:06 | Emergency (ER) | payer MEDICARE ==
[~2023-11-22] VITALS: Ht 172.7 cm; Wt 139.3 kg
[~2023-11-22 01:06] MED LIST changes: +ACTOS30 MG PO; +ADULT LOW DOSE81 MG PO; +ASPIRIN81 MG PO; +DOXYCYCLINE HY100 MG PO; +K-TAB ER20 MEQ PO; +LASIX20 MG PO; +NOVOLIN R100 UNIT/1 SUB-Q
[2023-11-22] MEDS ORDERED: PANTOPRAZOLE SODIUM 40 MG/10 ML VIAL IV ONE (01:30)
[2023-11-22] MEDS ORDERED: TRANEXAMIC ACID IN NACL,ISO-OS 1,000 MG/100 ML PIGGYBACK IV ONE (01:30)
[2023-11-22 01:51] LABS: BASOPHILS 0.5 % (0-2); EOSINOPHILS 1.5 % (0-6); HEMATOCRIT 34.6 % (35.0-50.0); HEMOGLOBIN 11.7 g/dL (12.0-18.0); LYMPHOCYTES 37.8 % (24-44); MCH 29.8 (27-36); MCHC 33.7 g/dl (30-36); MCV 88.4 fl (81-99); MONOCYTES 5.8 % (0-12); NEUTROPHILS 54.4 % (39-80); PLATELET COUNT 252 K/uL (140-440); RBC 3.91 M/ul (4.3-5.7); RDW 14.6 (10.5-15.0)
[2023-11-22] MEDS ORDERED: NIGHTTIME SLEEP25 M1 PO (01:57)
[2023-11-22 02:02] LABS: INR 2.96 (0.80-1.30); PROTIME 29.8 Sec (11.2-14.2)
[2023-11-22 02:06] LABS: ALBUMIN 3.4 g/dL (3.4-5.0); ALBUMIN/GLOBULIN RATIO 0.85 (1.1-2.4); ANION GAP 11.1 (7-21); BILIRUBIN, TOTAL 0.5 ng/dL (0.2-1.0); BUN/CREATININE RATIO 11.8 (6.0-28.6); CALCIUM 9.2 mg/dL (8.5-10.1); CREATININE, SERUM 1.44 mg/dL (0.55-1.02); POTASSIUM 4.1 mmol/L (3.5-5.1); PROTEIN, TOTAL 7.4 g/dL (6.4-8.2)
[2023-11-22 02:26] LABS: ABO A; ANTIBODY SCREEN NEGATIVE; RH POSITIVE
[2023-11-22 02:43] LABS: BILIRUBIN, URINE NEGATIVE (negative); BLOOD/HGB, URINE TRACE-L (Negative); KETONE, URINE NEGATIVE (Negative); LEUK ESTERASE, URINE NEGATIVE (negative); NITRITE, URINE NEGATIVE (negative)
[2023-11-22 02:48] LABS: BACTERIA, URINE 4+ /hpf (negative); CASTS, URINE NONE SEEN \\lpf; COLLECTION TYPE, URINE CLEAN CATCH; CRYSTALS, URINE NONE SEEN (0-1+); EPITHELIAL CELLS, URINE SQUAMOUS 1+ /lpf (0-1+); REFLEX CULTURE, URINE Yes (No)
[2023-11-22] MEDS ORDERED: ANUSOL-HC25 MG PR (04:39)
[2023-11-22] MEDS ORDERED: MACROBID 100 M100 MG PO (04:39)
[2023-11-22] MEDS ORDERED: NITROFURANTOIN MONOHYD MACROCR 100 MG HOME.PACK PO ONE (05:00)
[2023-11-22 05:10] VITALS: BP 149/51
== END 2023-11-22 05:11 | disposition home or self-care (01) ==
LOC: ED 01:06
PROVIDERS: Family Medicine
DX: K92.2 Gastrointestinal hemorrhage, unspecified (principal); N39.0 Urinary tract infection, site not specified; E11.9 Type 2 diabetes mellitus without complications; I11.0 Hypertensive heart disease with heart failure; I50.9 Heart failure, unspecified; I48.91 Unspecified atrial fibrillation; I25.2 Old myocardial infarction; F17.200 Nicotine dependence, unspecified, uncomplicated; Z86.73 Personal history of transient ischemic attack (TIA), and cerebral infarction without residual deficits; Z95.5 Presence of coronary angioplasty implant and graft; Z90.49 Acquired absence of other specified parts of digestive tract; Z88.1 Allergy status to other antibiotic agents; Z88.2 Allergy status to sulfonamides; Z88.5 Allergy status to narcotic agent; Z88.8 Allergy status to other drugs, medicaments and biological substances; Z91.048 Other nonmedicinal substance allergy status; Z79.01 Long term (current) use of anticoagulants; Z79.82 Long term (current) use of aspirin; Z79.4 Long term (current) use of insulin; Z79.899 Other long term (current) drug therapy
CPT/HCPCS: 36415; 74177; 80053; 81001; 85025; 85610; 86850; 86900; 86901; 87088; 99284-25; J2470; Q9967

== ENCOUNTER 2024-02-29 02:55 | Emergency (ER) | payer MEDICARE ==
[~2024-02-29] VITALS: Ht 172.7 cm; Wt 139.0 kg
[~2024-02-29 02:55] MED LIST changes: +ANUSOL-HC25 MG PR; +MACROBID 100 M100 MG PO; +NIGHTTIME SLEEP25 M1 PO
[2024-02-29 03:12] LABS: BASOPHILS 0.7 % (0-2); EOSINOPHILS 1.1 % (0-6); HEMATOCRIT 37.8 % (35.0-50.0); HEMOGLOBIN 12.6 g/dL (12.0-18.0); LYMPHOCYTES 22.3 % (24-44); MCHC 33.4 g/dl (30-36); MCV 89.8 fl (81-99); MONOCYTES 7.3 % (0-12); NEUTROPHILS 68.6 % (39-80); PLATELET COUNT 247 K/uL (140-440); RBC 4.21 M/ul (4.3-5.7); RDW 14.7 (10.5-15.0)
[2024-02-29] MEDS ORDERED: dilTIAZem HCL 25 MG/5 ML VIAL IV ONE (03:15)
[2024-02-29] MEDS ORDERED: NITROGLYCERIN PACKET TOP ONE (03:15)
[2024-02-29] MEDS ORDERED: MORPHINE SULFATE 4 MG/ML VIAL IV ONE (03:15)
[2024-02-29] MEDS ORDERED: ASPIRIN 81 MG CHEW PO ONE (03:15)
[2024-02-29 03:22] LABS: INR 2.26 (0.80-1.30)
[2024-02-29 03:34] LABS: ALBUMIN 3.3 g/dL (3.4-5.0); ALBUMIN/GLOBULIN RATIO 0.75 (1.1-2.4); ANION GAP 11.7 (7-21); BILIRUBIN, TOTAL 0.5 ng/dL (0.2-1.0); BUN/CREATININE RATIO 12.71 (6.0-28.6); CREATININE, SERUM 1.18 mg/dL (0.55-1.02); MAGNESIUM 1.5 mg/dL (1.8-2.4); POTASSIUM 3.7 mmol/L (3.5-5.1); PROTEIN, TOTAL 7.7 g/dL (6.4-8.2)
[2024-02-29] MEDS ORDERED: MAGNESIUM SULFATE 2 GM/50 ML BAG IV ONE (03:45)
[2024-02-29] MEDS ORDERED: CYCLOBENZAPRINE10 MG PO (04:29)
[2024-02-29] MEDS ORDERED: LORazepam 1 MG HOME.PACK PO ONE (04:30)
[2024-02-29 04:45] VITALS: BP 162/76
--- NOTE | 2024-03-01 20:59 | EKG ---
[facility] [address] [facility] [place] [address] Signed Atrial fibrillation Left anterior fascicular block Minimal voltage criteria for LVH, may be normal variant ( R in aVL ) Marked ST abnormality, possible lateral subendocardial injury Abnormal ECG No previous ECGs available Confirmed by Juana Puente MD ([id number]) on 03/01/2024 8:58:53 PM Electronically Signed By: JUANA PUENTE DO 03/01/242058 PATIENT NAME: RANDALL BATRES Electrocardiogram DATE OF : 55 PHYSICIAN: JUANA PUENTE DO REPORT #: [id number] REPORT IS CONFIDENTIAL AND NOT TO BE RELEASED WITHOUT AUTHORIZATION
== END 2024-02-29 04:46 | disposition home or self-care (01) ==
LOC: ED 02:55
PROVIDERS: Family Medicine
DX: R07.89 Other chest pain (principal); E11.9 Type 2 diabetes mellitus without complications; I11.0 Hypertensive heart disease with heart failure; I50.9 Heart failure, unspecified; I25.2 Old myocardial infarction; F17.200 Nicotine dependence, unspecified, uncomplicated; Z86.73 Personal history of transient ischemic attack (TIA), and cerebral infarction without residual deficits; Z95.0 Presence of cardiac pacemaker; Z88.5 Allergy status to narcotic agent; Z88.8 Allergy status to other drugs, medicaments and biological substances; Z88.1 Allergy status to other antibiotic agents; Z91.09 Other allergy status, other than to drugs and biological substances; Z79.01 Long term (current) use of anticoagulants; Z79.82 Long term (current) use of aspirin; Z79.899 Other long term (current) drug therapy; Z79.4 Long term (current) use of insulin
CPT/HCPCS: 36415; 71045; 80053; 83735; 83880; 84484; 85025; 85610; 93005; 93010; 96374; 96375; 99285-25; J2270; J3475

== ENCOUNTER 2024-04-08 21:26 | Emergency (ER) | payer MEDICARE ==
[~2024-04-08] VITALS: Ht 172.7 cm; Wt 137.0 kg
[2024-04-08 21:56] LABS: HEMATOCRIT 29.4 % (35.0-50.0); HEMOGLOBIN 9.8 g/dL (12.0-18.0); MCH 29.8 (27-36); MCHC 33.2 g/dl (30-36); MCV 89.8 fl (81-99); PLATELET COUNT 323 K/uL (140-440); RBC 3.27 M/ul (4.3-5.7); RDW 14.9 (10.5-15.0)
[2024-04-08 22:03] LABS: INR 1.36 (0.80-1.30); PROTIME 16.7 Sec (11.2-14.2)
[2024-04-08 22:06] LABS: EOSINOPHILS, MANUAL DIFF 2; LYMPHOCYTES, MANUAL DIFF 23; MONOCYTES, MANUAL DIFF 5; NEUTROPHILS, MANUAL DIFF 70
[2024-04-08 22:15] LABS: ALBUMIN 2.7 g/dL (3.4-5.0); ALBUMIN/GLOBULIN RATIO 0.68 (1.1-2.4); ANION GAP 12.3 (7-21); BILIRUBIN, TOTAL 0.7 ng/dL (0.2-1.0); BUN/CREATININE RATIO 19.79 (6.0-28.6); CALCIUM 9.1 mg/dL (8.5-10.1); CREATININE, SERUM 0.96 mg/dL (0.55-1.02); MAGNESIUM 1.6 mg/dL (1.8-2.4); POTASSIUM 4.3 mmol/L (3.5-5.1); PROTEIN, TOTAL 6.7 g/dL (6.4-8.2)
[2024-04-08] MEDS ORDERED: FUROSEMIDE 100 MG/10 ML VIAL IV ONE (22:30)
[2024-04-08] MEDS ORDERED: ondansetron HCL 4 MG/2 ML VIAL IV ONE (23:00)
[2024-04-08] MEDS ORDERED: MAGNESIUM SULFATE 2 GM/50 ML BAG IV ONE (23:30)
[2024-04-08] MEDS ORDERED: NICOTINE 14 MG/24 HR 1 EA TDSY TD ONE (23:45)
[2024-04-08] MEDS ORDERED: ACETAMINOPHEN 325 MG TAB PO ONE (23:45)
[2024-04-09] MEDS ORDERED: VITAMIN C500 M1 PO (00:09)
[2024-04-09] MEDS ORDERED: CEPHALEXIN500 MG PO (00:11)
[2024-04-09] MEDS ORDERED: ALLERGY RELIEF10 MG PO (00:13)
[2024-04-09] MEDS ORDERED: DOXYCYCLINE HY100 MG PO (00:17)
[2024-04-09] MEDS ORDERED: FOLIC ACID1 MG PO (00:24)
[2024-04-09] MEDS ORDERED: FERROUS SULFAT325 M2 PO (00:25)
[2024-04-09] MEDS ORDERED: COL-RITE100 MG PO (00:28)
[2024-04-09] MEDS ORDERED: NICOTINE PATCH1 EACH TD (00:31)
[2024-04-09] MEDS ORDERED: SEMGLEE (Y100 UNIT/2 SUB-Q (00:32)
[2024-04-09] MEDS ORDERED: TYLENOL EXTRA500 MG PO (00:34)
[2024-04-09] MEDS ORDERED: ATIVAN0.5 MG PO (00:36)
[2024-04-09] MEDS ORDERED: OXYCODONE HCL5 MG PO (00:37)
[2024-04-09] MEDS ORDERED: VENTOLIN HFA18 GM INH (00:39)
[2024-04-09] MEDS ORDERED: ASPIRIN 81 MG CHEW PO ONE (00:45)
[2024-04-09] MEDS ORDERED: fentaNYL citrate 100 MCG/2 ML VIAL IV ONE (03:00)
[2024-04-09 03:53] VITALS: BP 122/92
--- NOTE | 2024-04-09 22:20 | EKG ---
[facility] [address] [facility] [place] [address] Signed Atrial fibrillation Left anterior fascicular block Nonspecific ST and T wave abnormality Abnormal ECG When compared with ECG of 29-FEB-2024 02:57, Nonspecific T wave abnormality no longer evident in Anterior leads Confirmed by Myriam Sorensen MD () on 04/09/2024 10:20:14 PM Electronically Signed By: MYRIAM SORENSEN MD 04/09/24 2220 PATIENT NAME: RANDALL BATRES Electrocardiogram DATE OF : 55 PHYSICIAN: MYRIAM SORENSEN MD REPORT #: [id number] REPORT IS CONFIDENTIAL AND NOT TO BE RELEASED WITHOUT AUTHORIZATION
== END 2024-04-09 03:55 | disposition short-term general hospital (02) ==
LOC: ED 21:26
PROVIDERS: Family Medicine
DX: I21.4 Non-ST elevation (NSTEMI) myocardial infarction (principal); I11.0 Hypertensive heart disease with heart failure; I50.9 Heart failure, unspecified; E11.9 Type 2 diabetes mellitus without complications; I48.91 Unspecified atrial fibrillation; F17.200 Nicotine dependence, unspecified, uncomplicated; Z88.0 Allergy status to penicillin; Z88.1 Allergy status to other antibiotic agents; Z88.2 Allergy status to sulfonamides; Z88.5 Allergy status to narcotic agent; Z91.048 Other nonmedicinal substance allergy status; Z79.01 Long term (current) use of anticoagulants; Z79.82 Long term (current) use of aspirin; Z79.899 Other long term (current) drug therapy
CPT/HCPCS: 36415; 71045; 80053; 83735; 83880; 84484; 85025; 85610; 93005; 93010; 96374; 96375; 99285-25; A9270; J1940; J2405; J3010; J3475

== ENCOUNTER 2024-04-14 23:49 | Emergency (ER) | payer MEDICARE ==
[~2024-04-14] VITALS: Ht 172.7 cm; Wt 134.7 kg
[~2024-04-14 23:49] MED LIST changes: +ALLERGY RELIEF10 MG PO; +ATIVAN0.5 MG PO; +CEPHALEXIN500 MG PO; +COL-RITE100 MG PO; +FERROUS SULFAT325 M2 PO; +FOLIC ACID1 MG PO; +NICOTINE PATCH1 EACH TD; +OXYCODONE HCL5 MG PO; +SEMGLEE (Y100 UNIT/2 SUB-Q; +TYLENOL EXTRA500 MG PO; +VENTOLIN HFA18 GM INH
--- OUTSIDE RECORDS SUMMARY | 2024-04-14 23:55 | XMS ---
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 ESid VISIT COUNT (12 MO.) [address] [place], [place] [address]Julissa TOTAL 6 NOTE: Visits indicate total known visits. ED/UCC VISIT TRACKING (12 MO.) 04/14/2024 23:50 [facility] [place] TYPE: Emergency COMPLAINT: - CONSTIPATION 04/09/2024 05:27 [facility] TYPE: Emergency DIAGNOSES: - Acute ischemic heart disease, unspecified - Chest pain, unspecified - Unspecified atrial fibrillation - A-fib RVR - Shortness of Breath 04/08/2024 21:27 [facility] [place] TYPE: Emergency COMPLAINT: - HEART RATE ISSUE DIAGNOSES: - Allergy status to narcotic agent - Allergy status to other antibiotic agents - Allergy status to penicillin - Allergy status to sulfonamides - Heart failure, unspecified - Hypertensive heart disease with heart failure - halfway (current) use of anticoagulants - halfway (current) use of aspirin - Nicotine dependence, unspecified, uncomplicated - Non-ST elevation (NSTEMI) myocardial infarction - Other tank terminal gauger (current) drug therapy - Other nonmedicinal substance allergy status - Tachycardia, unspecified - Type 2 diabetes mellitus without complications - Unspecified atrial fibrillation 02/29/2024 02:55 [facility] [place] TYPE: Emergency COMPLAINT: - CHEST PAIN DIAGNOSES: - Allergy status to narcotic agent - Allergy status to other antibiotic agents - Allergy status to other drugs, medicaments and biological substances - Chest pain, unspecified - Heart failure, unspecified - Hypertensive heart disease with heart failure - halfway (current) use of anticoagulants - exterminator (current) use of aspirin - halfway (current) use of insulin - Nicotine dependence, unspecified, uncomplicated - Old myocardial infarction - Other allergy status, other than to drugs and biological substances - Other chest pain - Other chcf (current) drug therapy - Personal history of transient ischemic attack (TIA), and cerebral infarction without residual deficits - Presence of cardiac pacemaker - Type 2 diabetes mellitus without complications 11/22/2023 01:06 [facility] [place] TYPE: Emergency COMPLAINT: - BLOOD IN STOOL DIAGNOSES: - Acquired absence of other specified parts of digestive tract - Allergy status to narcotic agent - Allergy status to other antibiotic agents - Allergy status to other drugs, medicaments and biological substances - Allergy status to sulfonamides - Gastrointestinal hemorrhage, unspecified - Heart failure, unspecified - Hemorrhage of anus and rectum - Hypertensive heart disease with heart failure - halfway (current) use of anticoagulants - halfway (current) use of aspirin - exterminator (current) use of insulin - Nicotine dependence, unspecified, uncomplicated - Old myocardial infarction - Other tank terminal gauger (current) drug therapy - Other nonmedicinal substance allergy status - Personal history of transient ischemic attack (TIA), and cerebral infarction without residual deficits - Presence of coronary angioplasty implant and graft - Type 2 diabetes mellitus without complications - Unspecified atrial fibrillation - Urinary tract infection, site not specified 05/27/2023 00:56 [facility] [place] TYPE: Emergency COMPLAINT: - FALL DIAGNOSES: - Allergy status to narcotic agent - Allergy status to other antibiotic agents - Allergy status to other drugs, medicaments and biological substances - Allergy status to sulfonamides - Contusion of right lesser toe(s) without damage to nail, initial encounter - Displaced fracture of distal phalanx of right lesser toe(s), initial encounter for closed fracture - Fall on same level, unspecified, initial encounter - Heart failure, unspecified - Hypertensive heart disease with heart failure - exterminator (current) use of anticoagulants - exterminator (current) use of antithrombotics/antiplatelets - halfway (current) use of insulin - halfway (current) use of oral hypoglycemic drugs - Nicotine dependence, unspecified, uncomplicated - Old myocardial infarction - Other chcf (current) drug therapy - Other nonmedicinal substance allergy status - Type 2 diabetes mellitus without complications - Unspecified atrial fibrillation INPATIENT VISIT TRACKING (12 MO.) 04/09/2024 05:27 [facility] TYPE: Internal Medicine DIAGNOSES: - Acute ischemic heart disease, unspecified - Chest pain, unspecified - Essential (primary) hypertension - Heart failure, unspecified - Mixed hyperlipidemia - Morbid (severe) obesity due to excess calories - Non-ST elevation (NSTEMI) myocardial infarction - Unspecified atrial fibrillation 04/01/2024 07:00 [facility] TYPE: Internal Medicine DIAGNOSES: - Abnormal result of other cardiovascular function study - 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
[2024-04-15] MEDS ORDERED: DILTIAZEM HCL60 MG PO (00:06)
[2024-04-15] MEDS ORDERED: GLYCERIN 2 GM SUPP PR ONE (00:15)
[2024-04-15] MEDS ORDERED: Methylnaltrexone Bromide 12 MG/0.6 ML VIAL SUB-Q ONE (00:15)
[2024-04-15] MEDS ORDERED: dilTIAZem HCL 25 MG/5 ML VIAL IV ONE (00:30)
[2024-04-15 00:32] LABS: BASOPHILS 0.7 % (0-2); EOSINOPHILS 2.5 % (0-6); HEMATOCRIT 30.5 % (35.0-50.0); HEMOGLOBIN 10.3 g/dL (12.0-18.0); LYMPHOCYTES 23.4 % (24-44); MCH 30.4 (27-36); MCHC 33.7 g/dl (30-36); MCV 90.4 fl (81-99); NEUTROPHILS 66.4 % (39-80); PLATELET COUNT 445 K/uL (140-440); RBC 3.37 M/ul (4.3-5.7)
[2024-04-15 00:47] LABS: ALBUMIN 2.9 g/dL (3.4-5.0); ALBUMIN/GLOBULIN RATIO 0.74 (1.1-2.4); ANION GAP 11.5 (7-21); BILIRUBIN, TOTAL 0.4 ng/dL (0.2-1.0); BUN/CREATININE RATIO 15.68 (6.0-28.6); CALCIUM 9.4 mg/dL (8.5-10.1); CREATININE, SERUM 1.53 mg/dL (0.55-1.02); POTASSIUM 4.5 mmol/L (3.5-5.1); PROTEIN, TOTAL 6.8 g/dL (6.4-8.2)
[2024-04-15 01:18] LABS: BILIRUBIN, URINE NEGATIVE (negative); BLOOD/HGB, URINE NEGATIVE (Negative); KETONE, URINE NEGATIVE (Negative); LEUK ESTERASE, URINE NEGATIVE (negative); NITRITE, URINE NEGATIVE (negative); PH, URINE 6.5 (5-7)
[2024-04-15] MEDS ORDERED: MIRALAX119 GM PO (02:45)
[2024-04-15] MEDS ORDERED: RELISTOR150 MG PO (02:45)
[2024-04-15 03:03] VITALS: BP 158/77
--- NOTE | 2024-04-15 21:15 | EKG ---
[facility] [address] [facility] [place] [address] Signed Atrial fibrillation with rapid ventricular response Left anterior fascicular block T wave abnormality, consider lateral ischemia Abnormal ECG When compared with ECG of 08-APR-2024 21:31, No significant change was found Confirmed by Juana Puente DO ([id number]) on 04/15/2024 9:15:30 PM Electronically Signed By: JUANA PUENTE DO 04/15/242114 PATIENT NAME: RANDALL BATRES Electrocardiogram DATE OF : 55 PHYSICIAN: JUANA PUENTE DO REPORT #: [id number] REPORT IS CONFIDENTIAL AND NOT TO BE RELEASED WITHOUT AUTHORIZATION
== END 2024-04-15 03:05 | disposition home or self-care (01) ==
LOC: ED 23:49
PROVIDERS: Internal Medicine
DX: K59.03 Drug induced constipation (principal); T40.2X5A Adverse effect of other opioids, initial encounter; I48.91 Unspecified atrial fibrillation; I25.2 Old myocardial infarction; I11.0 Hypertensive heart disease with heart failure; I50.9 Heart failure, unspecified; E11.9 Type 2 diabetes mellitus without complications; F17.200 Nicotine dependence, unspecified, uncomplicated; Z95.5 Presence of coronary angioplasty implant and graft; Z88.0 Allergy status to penicillin; Z88.8 Allergy status to other drugs, medicaments and biological substances; Z88.1 Allergy status to other antibiotic agents; Z88.2 Allergy status to sulfonamides; Z88.5 Allergy status to narcotic agent; Z91.048 Other nonmedicinal substance allergy status; Z79.01 Long term (current) use of anticoagulants; Z79.82 Long term (current) use of aspirin; Z79.899 Other long term (current) drug therapy
CPT/HCPCS: 36415; 51798; 80053; 81003; 83735; 84484; 85025; 93005; 93010; 96374; 99283-25; J2212

== ENCOUNTER 2024-08-02 05:15 | Emergency (ER) | payer MEDICARE | END 2024-08-02 06:56 | disposition home or self-care (01) | LOC: ED 05:15 | DX: I48.91 Unspecified atrial fibrillation (principal); I11.0 Hypertensive heart disease with heart failure; I50.9 Heart failure, unspecified; F17.200 Nicotine dependence, unspecified, uncomplicated; E11.9 Type 2 diabetes mellitus without complications; Z88.8 Allergy status to other drugs, medicaments and biological substances; Z88.2 Allergy status to sulfonamides; Z88.1 Allergy status to other antibiotic agents; Z79.899 Other long term (current) drug therapy ==

== ENCOUNTER 2025-01-07 23:59 | Emergency (ER) | payer MEDICARE ==
[~2025-01-07] VITALS: Ht 172.7 cm; Wt 150.0 kg
[~2025-01-07 23:59] MED LIST changes: +DILTIAZEM HCL60 MG PO; +MIRALAX119 GM PO; +RELISTOR150 MG PO; +VALSARTAN160 MG PO
[2025-01-08] MEDS ORDERED: ZYRTEC10 MG PO (00:25)
[2025-01-08] MEDS ORDERED: LANTUS100 UNITS/ (00:26)
[2025-01-08 00:28] LABS: BASOPHILS 0.4 % (0.1-1.2); EOSINOPHILS 1.7 % (0.7-5.8); LYMPHOCYTES 31.4 % (19.3-51.7); MCH 29.5 PG (25.6-32.2); MCHC 33.5 g/dL (32.2-35.5); MCV 87.9 fL (79.4-94.8); MONOCYTES 6.6 % (4.7-12.5); NEUTROPHILS 59.5 % (34.0-71.1); RBC 4.38 M/uL (3.93-5.22)
[2025-01-08 00:46] LABS: ALT (SGPT) 27.0 U/L (14-59); AST (SGOT) 21.0 U/L (15-37); GLOMERULAR FILTRATION RATE,EST 64.0 mL/min (>60); PROTEIN, TOTAL 7.1 g/dL (6.4-8.2); UREA NITROGEN 13.0 mg/dL (7-18)
[2025-01-08 00:56] LABS: INR 2.28 (0.80-1.30); PROTIME 23.8 Sec (11.2-14.2)
[2025-01-08] MEDS ORDERED: NITROGLYCERIN 0.4 MG SUBL SL PRN (06:30)
[2025-01-08] MEDS ORDERED: LIDOCAINE & ANTACID 35 ML BTL PO ONE (06:30)
[2025-01-08] MEDS ORDERED: LORazepam 2 MG/ML VIAL IV ONE (06:45)
[2025-01-08] MEDS ORDERED: NITROGLYCERIN 50MG/D5W 250 ML IV SCH (06:45)
[2025-01-08] MEDS ORDERED: ACETAMINOPHEN 500 MG TAB PO ONE (07:15)
[2025-01-08] MEDS ORDERED: HEPARIN SOD,PORK IN 0.45% NACL 500 ML IV SCH ×2 (08:00→09:15)
[2025-01-08 09:52] VITALS: BP 159/127
--- NOTE | 2025-01-08 13:59 | EKG ---
[facility] [address] [facility] [place] [address] Signed Ventricular-paced rhythm with premature ventricular or aberrantly conducted complexes Abnormal ECG When compared with ECG of 02-AUG-2024 05:15, Electronic ventricular pacemaker has replaced Atrial fibrillation Confirmed by Myriam Sorensen MD () on 01/08/2025 1:59:18 PM Electronically Signed By: MYRIAM SORENSEN MD 01/08/25 1359 PATIENT NAME: RANDALL BATRES Electrocardiogram DATE OF : 55 PHYSICIAN: MYRIAM SORENSEN MD REPORT #: [id number] REPORT IS CONFIDENTIAL AND NOT TO BE RELEASED WITHOUT AUTHORIZATION
--- NOTE | 2025-01-08 14:04 | EKG ---
[facility] [address] [facility] [place] [address] Signed Atrial flutter Left anterior fascicular block Abnormal ECG When compared with ECG of 08-JAN-2025 00:05, premature ventricular complexes are no longer present Confirmed by Myriam Sorensen MD () on 01/08/2025 2:03:57 PM Electronically Signed By: MYRIAM SORENSEN MD 01/08/25 1404 PATIENT NAME: RANDALL BATRES Electrocardiogram DATE OF : 55 PHYSICIAN: MYRIAM SORENSEN MD REPORT #: [id number] REPORT IS CONFIDENTIAL AND NOT TO BE RELEASED WITHOUT AUTHORIZATION
--- NOTE | 2025-01-08 14:04 | EKG ---
[facility] [address] [place] [address] Signed Atrial flutter Left anterior fascicular block Minimal voltage criteria for LVH, may be normal variant ( Isaac product ) Nonspecific T wave abnormality Abnormal ECG When compared with ECG of 08-JAN-2025 05:19, No significant change was found Confirmed by Myriam Sorensen MD () on 01/08/2025 2:04:34 PM Electronically Signed By: MYRIAM SORENSEN MD 01/08/25 1404 PATIENT NAME: RANDALL BATRES Electrocardiogram DATE OF : 55 PHYSICIAN: MYRIAM SORENSEN MD REPORT #: [id number] REPORT IS CONFIDENTIAL AND NOT TO BE RELEASED WITHOUT AUTHORIZATION
== END 2025-01-08 09:15 | disposition short-term general hospital (02) ==
LOC: ED 23:59
PROVIDERS: Emergency Medicine
DX: I48.91 Unspecified atrial fibrillation (principal); R79.89 Other specified abnormal findings of blood chemistry; I50.9 Heart failure, unspecified; I11.0 Hypertensive heart disease with heart failure; F17.200 Nicotine dependence, unspecified, uncomplicated; Z88.8 Allergy status to other drugs, medicaments and biological substances; Z88.2 Allergy status to sulfonamides
CPT/HCPCS: 36415; 71045; 80048; 80053; 83735; 83880; 84484; 85025; 85610; 85730; 93005; 93010; 96374; 96375; 96376; 99285-25; A9270; J1644; J2060

== ENCOUNTER 2025-03-09 21:28 | Emergency (ER) | payer MEDICARE ==
[~2025-03-09] VITALS: Ht 172.7 cm; Wt 149.7 kg
[~2025-03-09 21:28] MED LIST changes: +LANTUS100 UNITS/
[2025-03-09 23:07] LABS: BASOPHILS 0.3 % (0.1-1.2); EOSINOPHILS 0 % (0.7-5.8); LYMPHOCYTES 3.0 % (19.3-51.7); MCH 29.5 PG (25.6-32.2); MCHC 33.2 g/dL (32.2-35.5); MCV 89.0 fL (79.4-94.8); MONOCYTES 4.4 % (4.7-12.5); NEUTROPHILS 90.0 % (34.0-71.1); RBC 4.84 M/uL (3.93-5.22)
[2025-03-09 23:20] LABS: SMEAR REVIEW BLOOD SEE COMMENTS
[2025-03-09 23:37] LABS: ALT (SGPT) 39.0 U/L (14-59); AST (SGOT) 37.0 U/L (15-37); GLOMERULAR FILTRATION RATE,EST 53.0 mL/min (>60); PROTEIN, TOTAL 7.7 g/dL (6.4-8.2); UREA NITROGEN 12.0 mg/dL (7-18)
[2025-03-09 23:48] LABS: INFLUENZA B NAA NEGATIVE (NEGATIVE); RESPIRATORY SYNCYTIAL VIR NAA NEGATIVE (NEGATIVE)
[2025-03-10] MEDS ORDERED: ACETAMINOPHEN 500 MG TAB PO ONE ×2 (02:00→08:15)
[2025-03-10 02:17] LABS: BLOOD/HGB, URINE MODERATE (Negative); KETONE, URINE TRACE (Negative); LEUK ESTERASE, URINE NEGATIVE (negative); NITRITE, URINE POSITIVE (negative)
[2025-03-10 02:35] LABS: EPITHELIAL CELLS, URINE SQUAMOUS 1+ /lpf (0-1+)
[2025-03-10 02:36] LABS: BACTERIA, URINE 4+ /hpf (negative); CASTS, URINE NONE SEEN \\lpf; CRYSTALS, URINE NONE SEEN (0-1+); REFLEX CULTURE, URINE Yes (No)
[2025-03-10] MEDS ORDERED: FUROSEMIDE 100 MG/10 ML VIAL IV ONE (03:15)
[2025-03-10] MEDS ORDERED: ALBUMIN HUMAN 25% 100 ML BTL IV ONE (04:15)
[2025-03-10] MEDS ORDERED: SODIUM CHLORIDE 0.9% 500 ML IV SCH (04:15)
[2025-03-10 05:54] LABS: INR 2.86 (0.80-1.30); PROTIME 29.1 Sec (11.2-14.2)
[2025-03-10] MEDS ORDERED: CLOPIDOGREL BISULFATE 75 MG TAB PO ONE (08:00)
[2025-03-10] MEDS ORDERED: HYDROmorphone HCL 1 MG/ML SYR IV PRN (09:30)
[2025-03-10 14:07] VITALS: BP 136/59
--- NOTE | 2025-03-10 17:47 | EKG ---
[facility] [address] [place] [address] Signed Atrial fibrillation with rapid ventricular response Left anterior fascicular block Moderate voltage criteria for LVH, may be normal variant ( R in aVL , [place] product ) ST \T\ T wave abnormality, consider lateral ischemia Abnormal ECG When compared with ECG of 08-JAN-2025 06:39, Atrial fibrillation has replaced Atrial flutter Vent. rate has increased BY 61 BPM T wave inversion now evident in Lateral leads Confirmed by Juana Puente DO ([id number]) on 03/10/2025 5:47:40 PM Electronically Signed By: JUANA PUENTE DO 03/10/25 1747 PATIENT NAME: RANDALL BATRES Electrocardiogram DATE OF : 55 PHYSICIAN: JUANA PUENTE DO REPORT #: [id number] REPORT IS CONFIDENTIAL AND NOT TO BE RELEASED WITHOUT AUTHORIZATION
--- NOTE | 2025-03-10 17:48 | EKG ---
[facility] [address] [facility] [place] [address] Signed Undetermined rhythm Left anterior fascicular block ST \T\ T wave abnormality, consider anterior ischemia Abnormal ECG When compared with ECG of 09-MAR-2025 22:41, (Unconfirmed) Current undetermined rhythm precludes rhythm comparison, needs review T wave inversion now evident in Anterior leads Nonspecific T wave abnormality has replaced inverted T waves in Lateral leads Confirmed by Juana Puente DO ([id number]) on 03/10/2025 5:48:04 PM Electronically Signed By: JUANA PUENTE DO 03/10/25 1748 PATIENT NAME: RANDALL BATRES Electrocardiogram DATE OF : 55 PHYSICIAN: JUANA PUENTE DO REPORT #: [id number] REPORT IS CONFIDENTIAL AND NOT TO BE RELEASED WITHOUT AUTHORIZATION
== END 2025-03-10 13:39 | disposition short-term general hospital (02) ==
LOC: ED 21:28
PROVIDERS: Family Medicine
DX: I48.91 Unspecified atrial fibrillation (principal); I24.9 Acute ischemic heart disease, unspecified; I11.0 Hypertensive heart disease with heart failure; I50.9 Heart failure, unspecified; E11.9 Type 2 diabetes mellitus without complications; Z88.8 Allergy status to other drugs, medicaments and biological substances; Z88.2 Allergy status to sulfonamides; Z79.899 Other long term (current) drug therapy; Z79.01 Long term (current) use of anticoagulants
CPT/HCPCS: 36415; 70450; 71045; 71260; 74176; 80053; 81001; 83605; 83735; 83880; 84484; 85025; 85060; 85610; 87040; 87077; 87088; 87186; 87502; 93005; 93010; 96361; 96365; 96367; 96375; 96376; 99285-25; A9270; J0696; J1171; J2405; J7040; P9047; Q9967; U0002